=== PATIENT | male | born 1955 | race Caucasian/White ===

== ENCOUNTER → 2016-11-18 | Day surgery (SDC) | payer OTHER ==
[2016-11-11 14:09] VITALS: Ht 170.2 cm; Wt 99.1 kg
[~2016-11-18] VITALS: Ht 170.2 cm; Wt 99.1 kg
[~2016-11-18] MED LIST: CALC500C3 PO; IBUP-1050 PO; LIDOCAINE HCL 2% 2 ML VIAL (20MG/ML) ONE; MIDAZOLAM HCL 1 MG/ML 2ML VIAL ONE; MULT-506 PO; ONDANSETRON INJ 2 MG/ML 2 ML VIAL ONE; PROPOFOL IV EMULSION 10 MG/ML 20 ML VIAL IV ONE; SODIUM CHLORIDE 0.9% 500ML 500 ML IV ONE
--- NOTE | 2016-11-18 12:19 | Endo History and Physical ---
History & Physical Date of Service: Nov 18, 2016. Chief Complaint: screening Referring Physician: Dr. Abdulaziz Alexander History of Present Illness 61 yo CM who presents for screening colonoscopy Past Surgical History Hx Cardiac Surgery: No Hx Internal Defibrillator: No Hx Pacemaker: No Hx Abdominal Surgery: No Hx of Implantable Prosthesis: No Hx Post-Op Nausea and Vomiting: No Hx Cancer Surgery: No Hx Thoracic Surgery: No Hx Orthopedic: Yes (R KNEE SCOPE, L KNEE SCOPE X 2,L SHOULDER SCOPE X 2) Hx Urinary Tract Surgery: No Family History None Social History Smoking Status: Current Every Day Smoker Hx Substance Use: No Hx Alcohol Use: Yes (OCC SOCIAL) Allergies Coded Allergies: Ethanol (Verified Allergy, Unknown, SNEEZING, 11/18/16) Guaifenesin (Verified Allergy, Unknown, SNEEZING, 11/18/16) Current Medications Reported Home Medications Medications Dose Route/Sig Max Daily Dose Days Date Category Tums (Calcium Carbonate) 500 Mg Chew 2 Tab PO PRN 11/11/16 Reported Advil (Ibuprofen) 200 Mg Tab 400 Mg PO PRN 11/11/16 Reported Multivitamin (Multivitamins) Tab 1 Tab PO QAM 11/11/16 Reported Vital Signs Weight (Kilograms): 99.09 Height (Feet): 5 Height (Inches): 7 Date Time Temp Pulse Resp B/P Pulse Ox O2 Delivery O2 Flow Rate FiO2 11/18/16 11:52 36.6 85 20 131/88 97 Room Air Physical Exam General Appearance: WD/WN, no apparent distress Respiratory/Chest: Auscultation: breath sounds normal Cardiovascular: Heart Auscultation: RRR Abdomen: Bowel Sounds: normal Inspection & Palpation: soft, non-distended, no tenderness, guarding & rebound Assessment and Plan Assessment: 61 yo CM who presents for screening colonoscopy Plan: Proceed with colonoscopy.
--- NOTE | 2016-11-18 13:03 | GI REPORT ---
Procedure Date: 11/18/2016 12:30 PM Procedure: Colonoscopy Indications: Screening for colorectal malignant neoplasm Medicines: Monitored Anesthesia Care Complications: No immediate complications. Estimated Blood Loss: Estimated blood loss: none. Procedure: Pre-Anesthesia Assessment: - Prior to the procedure, a History and Physical was performed, and patient medications and allergies were reviewed. The patient's tolerance of previous anesthesia was also reviewed. The risks and benefits of the procedure and the sedation options and risks were discussed with the patient. All questions were answered, and informed consent was obtained. Prior Anticoagulants: The patient has taken no previous anticoagulant or antiplatelet agents. ASA Grade Assessment: II - A patient with mild systemic disease. After reviewing the risks and benefits, the patient was deemed in satisfactory condition to undergo the procedure. After I obtained informed consent, the scope was passed under direct vision. Throughout the procedure, the patient's blood pressure, pulse, and oxygen saturations were monitored continuously. The scope was introduced through the anus and advanced to the terminal ileum. The colonoscopy was performed without difficulty. The patient tolerated the procedure well. The quality of the bowel preparation was good. The terminal ileum, ileocecal valve, appendiceal orifice, and rectum were photographed. Findings: Five sessile polyps were found in the sigmoid colon, in the transverse colon and in the ascending colon. The polyps were 5 to 10 mm in size. These polyps were removed with a hot snare. Resection and retrieval were complete. Scattered small-mouthed diverticula were found in the entire colon. Non-bleeding internal hemorrhoids were found during retroflexion. The hemorrhoids were small. Impression: - Five 5 to 10 mm polyps in the sigmoid colon, in the transverse colon and in the ascending colon, removed with a hot snare. Resected and retrieved. - Diverticulosis in the entire examined colon. - Non-bleeding internal hemorrhoids. Recommendation: - Resume previous diet. - Continue present medications. - Repeat colonoscopy for surveillance based on pathology results. - Return to primary care physician as previously scheduled. Gabriel Morales DO 11/18/2016 1:02:18 PM This report has been signed electronically. Note Initiated On: 11/18/2016 12:30 PM
--- NOTE | 2016-11-18 13:07 | Discharge Instructions ---
Endoscopy Patient Instructions Date / Procedure(s) Performed Nov 18, 2016. Colonoscopy Allergy Information Coded Allergies: Ethanol (Verified Allergy, Unknown, SNEEZING, 11/18/16) Guaifenesin (Verified Allergy, Unknown, SNEEZING, 11/18/16) Discharge Date / Findings Nov 18, 2016. Colon polyps Diverticulosis Internal hemorrhoids Medication Instructions OK to resume all medications today as prescribed. Reported Home Medications Medications Dose Route/Sig Max Daily Dose Days Date Category Tums (Calcium Carbonate) 500 Mg Chew 2 Tab PO PRN 11/11/16 Reported Advil (Ibuprofen) 200 Mg Tab 400 Mg PO PRN 11/11/16 Reported Multivitamin (Multivitamins) Tab 1 Tab PO QAM 11/11/16 Reported Provider Instructions Activity Restrictions - No exercising or heavy lifting for 24 hours. - Do not drink alcohol the day of the procedure. - Do not drive a car or operate machinery until the day after the procedure. - Do not make any important decisions or sign important papers in 24 hours after the procedure. Following Day: - Return to full activity which may include returning to work/school. Diet Start your diet with liquids and light foods (jello, soup, juice, toast). Then eat your usual diet if not nauseated. Treatment For Common After Affects For mild abdominal pain, bloating, or excessive gas: - Rest - Eat lightly - Lie on right side Follow-Up Information Follow-up with Dr. Abdulaziz Alexander as scheduled Anesthesia Information What You Should Know You have had a procedure that required some medicine to reduce anxiety and discomfort. This treatment is called moderate sedation. After receiving the treatment, you may be sleepy, but you will be able to breathe on your own. The effects of the treatment may last for several hours. Follow these instructions along with Activity/Diet recommendations noted above: * Do NOT do anything where dizziness or clumsiness would be dangerous. * Rest quietly at home today, then you can be up and about tomorrow. * Have a responsible person stay with you the rest of today. * You may have had an I.V. today. If so, you may take the dressing off later today. Recommendations Call your doctor if: * Trouble breathing * Continuous vomiting for more than 24 hours * Temperature above 101 degrees * Severe abdominal pain or bloating * Pain not relieved by pain medicine ordered * There is increased drainage or redness from any incision * A large amount of rectal bleeding greater than 2-3 tablespoons. (If you had a polyp/s removed or have hemorrhoids, a small amount of blood - from the rectum is to be expected.) * You have any unanswered questions or concerns. IN THE EVENT OF A SERIOUS EMERGENCY, GO TO THE NEAREST EMERGENCY ROOM Your discharge instructions were prepared by provider Gabriel Morales. Patient Instructions Signature Page Dyllan Keller Patient (or Guardian) Signature/Date: I have read and understand the instructions given to me by my caregivers. Caregiver/RN/Doctor Signature/Date: The above-named patient and/or guardian has received patient instructions on this date. + Original Patient Signature Page (only) stays with chart. Please make copy for patient.
[2016-11-18 13:38] VITALS: BP 148/82; PULSE 77; O2SAT 98
--- NOTE | 2016-11-18 13:45 | Anesthesiology Progress Note ---
Anesthesia Post Op Note Date & Time Nov 18, 2016 at 13:44 Vital Signs Pain Intensity: 0 Vital Signs Past 12 Hours Date Time Temp Pulse Resp B/P Pulse Ox O2 Delivery O2 Flow Rate FiO2 11/18/16 13:38 77 20 148/82 98 Room Air 11/18/16 13:17 81 20 146/80 97 Room Air 11/18/16 13:00 93 20 130/77 95 Room Air 11/18/16 11:52 36.6 85 20 131/88 97 Room Air Notes Mental Status: alert / awake / arousable, participated in evaluation Pt Amnestic to Procedure: Yes Nausea / Vomiting: adequately controlled Pain: adequately controlled Airway Patency, RR, SpO2: stable & adequate BP & HR: stable & adequate Hydration State: stable & adequate Anesthetic Complications: no major complications apparent
== END | disposition home or self-care (01) ==
LOC: C.GI 11:31
PROVIDERS: ATTEND Internal Medicine
DX: Z12.11 Encounter for screening for malignant neoplasm of colon (principal); D12.5 Benign neoplasm of sigmoid colon; D12.3 Benign neoplasm of transverse colon; D12.2 Benign neoplasm of ascending colon; K57.30 Diverticulosis of large intestine without perforation or abscess without bleeding; K64.8 Other hemorrhoids; F17.210 Nicotine dependence, cigarettes, uncomplicated

== ENCOUNTER → 2018-02-22 | Day surgery (SDC) | payer OTHER ==
[2018-02-09 15:33] VITALS: Ht 170.2 cm; Wt 100.0 kg
[~2018-02-22] VITALS: Ht 170.2 cm; Wt 100.0 kg
[~2018-02-22] MED LIST changes: +500ML BSS 0.3ML EPI 1:1000PF IRRIG ONE; +ACETAMINOPHEN 325 MG TAB PO PRN; +AMVISC PLUS 0.8ML SYRINGE INT OCU ONE; +ATROPINE SULFATE 0.1 MG/ML 5ML SYR IV PRN; +BSS FLUSH ONE; +CYCLOPENTOLATE HCL 1% OP SOLN PER DROP CHARGE OPR ONE; +ENDOCOAT 0.85ML SYRINGE INT OCU ONE; +EpHEDrine SULFATE INJ 50 MG/ML AMP IV PRN; +EpINEphrine INJ 1MG/ML AMP 1 MG/ML AMP ONE; +LACTATED RINGER'S 1000ML 500 ML IV SCH; +LIDOCAINE 4% OP SOLN DROP CHARGE ONE; +LIDOCAINE 4% OP SOLN DROP CHARGE OPR SCH; +LIDOCAINE HCL 1% MPF 2 ML VIAL ONE; -LIDOCAINE HCL 2% 2 ML VIAL (20MG/ML) ONE; +MIX: 4ML BSS 1ML EPI 1:1000 PF TOP ONE; +MOXIFLOXACIN OPH SOLN PER DROP CHARGE ONE; +NURSING VERBAL MED ORDER ONE; -ONDANSETRON INJ 2 MG/ML 2 ML VIAL ONE; +PHENYLEPHRINE HCL 10% OP SOLN PER DROP CHARGE OPR ONE; +POVIDONE-IODINE OP SOLN 30 ML BTL ONE; +PROPARACAINE 0.5% OP SOLN PER DROP CHARGE OPR SCH; -PROPOFOL IV EMULSION 10 MG/ML 20 ML VIAL IV ONE; -SODIUM CHLORIDE 0.9% 500ML 500 ML IV ONE; +TOBRAMYCIN/DEXAMETHASONE OPH OINT PER APPLN CHARGE ONE; +TROPICAMIDE 1% OP SOLN PER DROP CHARGE OPR ONE
[2018-02-22] MEDS: PHENYLEPHRINE HCL 10% OP SOLN PER DROP CHARGE OPR SCH ×3 (07:21→07:29)
[2018-02-22] MEDS: TROPICAMIDE 1% OP SOLN PER DROP CHARGE OPR SCH ×3 (07:22→07:30)
[2018-02-22] MEDS: CYCLOPENTOLATE HCL 1% OP SOLN PER DROP CHARGE OPR SCH ×3 (07:23→07:31)
[2018-02-22] MEDS: MOXIFLOXACIN OPH SOLN PER DROP CHARGE OPR SCH ×3 (07:24→07:32)
--- NOTE | 2018-02-22 07:31 | History & Physical Bridge - SC ---
H&P Re-Evaluation Bridge Note: I have examined the patient, reviewed the History & Physical and in the interval since the performance of the History & Physical I have noted the following changes of clinical significance: No changes noted
--- NOTE | 2018-02-22 08:43 | [facility] Post Operative Brief Note ---
Immediate Operative Summary Operative Date Feb 22, 2018. Pre-Operative Diagnosis Cataract Right Eye Post-Operative Diagnosis Same Procedure(s) Performed Right Cataract Phacoemulsification With Intraocular Lens Implant; Toric Lens Surgeon Dr. Pearce Civil Draftsman Surgeon(s) None Estimated Blood Loss 0 mL Findings Consistent with Post-Op Diagnosis Specimens None Anesthesia Type MAC Complication(s) none Disposition Accompanied Pt To Recovery: no Disposition:
--- NOTE | 2018-02-22 08:44 | [facility] Operative Report ---
Operative Report Date of Service Feb 22, 2018. Operative Report DATE OF OPERATION: 02/22/18 PREOPERATIVE DIAGNOSIS: Senile nuclear cataract and astigmatism, right eye POSTOPERATIVE DIAGNOSIS: Senile nuclear cataract and astigmatism, right eye PROCEDURE PERFORMED: Phacoemulsification with toric intraocular lens implantation, right eye SURGEON: Dr. Landon Pearce ANESTHESIA: Topical with 1% intracameral lidocaine and monitored anesthesia care COMPLICATIONS: None DESCRIPTION OF PROCEDURE: After positively identifying the patient both verbally and by wristband in the preoperative area, the right eye was marked as the operative eye. Using a Robomarker, the 177 degree axis was marked after placing a drop of proparacaine. The patient was then brought back to the operating room by the anesthesia and nursing staff where they were given a drop of tetracaine and betadine into the operative eye. They were then sterilely prepped and draped in the standard fashion typical for ophthalmic surgery. Steri-strips were placed along the upper eyelids to keep the lashes back, and a lid speculum was placed into the operative eye. At this point, a documented time out was performed with members of the ophthalmology, nursing, and anesthesia staffs all agreeing upon the correct patient, correct location for surgery, correct procedure, and correct type and power of intraocular lens to be implanted. The microscope was then swung into position. Then, a paracentesis wound was made using a sideport blade. Then, in sequence, 1% preservative-free lidocaine followed by Endocoat viscoelastic was injected into the anterior chamber. Next , the main incision was made with a keratome blade in triplanar fashion. A sharp cystotome was introduced into the eye and used to create a tear in the anterior capsule, which was directed into a continuous curvilinear capsulorrhexis using Utrata forceps. Hydrodissection was then performed with BSS on a flat-tip cannula. Next, the phacoemulsification handpiece was introduced into the eye and used to remove the nucleus in a yccuos-ibl-igotfft fashion. This was done without complication and then the irrigation-aspiration handpiece was introduced into the eye and used to remove all remaining cortical and epinuclear material. Amvisc was then injected into the anterior chamber as well as into the capsular bag and using the lens injector system, a [id number] 21.0 D lens, serial number [id number], and expiration date 06/2021 was injected into the capsular bag and rotated into the correct position to correctly line up with the toric marking. Next, the irrigation-aspiration handpiece was used to remove all remaining Amvisc. BSS was used to hydrate the main wound, and then BSS was injected into the paracentesis site to reach physiologic pressure and then the main wound was checked and found to be watertight. The patient was given drops of Vigamox and tobradex ointment into the operative eye, and then the surrounding area was cleaned and dried. A clear plastic shield was placed over the eye and the patient was then sat up and taken from the operating room by the anesthesia staff having tolerated the procedure well and suffering no complications. DISPOSITION: The patient was returned to the recovery room in stable condition. I attest to the content of the Intraoperative Record and any orders documented therein. Any exceptions are noted below.
--- NOTE | 2018-02-22 08:45 | Discharge Instructions-SurgCtr ---
Discharge Instructions Date of Service Feb 22, 2018. Visit Reason for Visit: Right Cataract Discharge Discharge Diagnosis / Problem: right cataract Discharge Goals Goal(s): Decrease discomfort, Improve function Activity Recommendations Activity Limitations: as noted below Anesthesia . Post Anesthesia Instructions: If you have had General Anesthesia or IV Sedation: * Do not drive today. * Resume driving when surgeon permits. * Do not make important decisions or sign legal documents today. * Call surgeon for: 1. Temperature elevations greater than 101 degrees F. 2. Uncontrollable pain. 3. Excessive bleeding. 4. Persistent nausea and vomiting. 5. Medication intolerance (nausea, vomiting or rash). * For nausea and vomiting use only clear liquids such as: tea, soda, bouillon until nausea subsides, then gradually increase diet as tolerated. * If you have any concerns or questions, call your surgeon's office. If physician is unavailable and it is an emergency, call 911 or go to the nearest emergency room. . Instructions / Follow-Up Instructions / Follow-Up ACTIVITY RECOMMENDATIONS: * Light activities. * You may walk outside, read, watch television. * You may notice redness on the white part of the eye and some blurry vision - this is normal. MEDICATIONS: Resume previous medications unless instructed otherwise by your surgeon. Start all eye drops at 11 am today: * Eye drops (today): Prednisone - one drop in operative eye every 2 hours while awake Ofloxacin - one drop in operative eye every 2 hours while awake Prolensa - one drop in operative eye daily SPECIAL CARE INSTRUCTIONS: * Tape plastic shield over eye to sleep at night. Call your doctor at with any concerns or problems. FOLLOW UP VISIT: Follow-up with Dr Pearce at [facility] as scheduled. Diet Recommendations Home Diet: no limitations Procedures Procedures Performed: Right Cataract Phacoemulsification With Intraocular Lens Implant; Toric Lens Pending Studies Studies pending at discharge: no Medical Emergencies . Who to Call and When: Medical Emergencies: If at any time you feel your situation is an emergency, please call 911 immediately. . Non-Emergent Contact Non-Emergency issues call your: Surgeon . . "Provider Documentation" section prepared by Landon Pearce. .
[2018-02-22 08:46] VITALS: TEMP 36.7
[2018-02-22 09:04] VITALS: BP 153/95; PULSE 75; O2SAT 95
--- NOTE | 2018-02-22 09:14 | Anesthesia Progress Nt - [facility] ---
Anesthesia Post Op Note Date & Time Feb 22, 2018 at 09:14 Vital Signs Pain Intensity: 0 Vital Signs Past 12 Hours Date Time Temp Pulse Resp B/P (MAP) Pulse Ox O2 Delivery O2 Flow Rate FiO2 02/22/18 09:04 75 20 153/95 (114) 95 Room Air 02/22/18 08:46 36.7 78 16 151/94 (113) 95 Room Air 02/22/18 07:09 36.6 80 20 185/83 (117) 96 Room Air Notes Mental Status: alert / awake / arousable, participated in evaluation Pt Amnestic to Procedure: Yes Nausea / Vomiting: adequately controlled Pain: adequately controlled Airway Patency, RR, SpO2: stable & adequate BP & HR: stable & adequate Hydration State: stable & adequate Anesthetic Complications: no major complications apparent
== END | disposition home or self-care (01) ==
LOC: X.SURG 07:00
PROVIDERS: ATTEND Ophthalmology
DX: H25.11 Age-related nuclear cataract, right eye (principal); H52.201 Unspecified astigmatism, right eye; J44.9 Chronic obstructive pulmonary disease, unspecified; I10 Essential (primary) hypertension; K21.9 Gastro-esophageal reflux disease without esophagitis; E66.9 Obesity, unspecified; F17.210 Nicotine dependence, cigarettes, uncomplicated; Z83.3 Family history of diabetes mellitus; Z83.511 Family history of glaucoma

== ENCOUNTER → 2018-03-08 | Day surgery (SDC) | payer OTHER ==
[2018-02-27 14:39] VITALS: Ht 170.2 cm; Wt 100.0 kg
[~2018-03-08] VITALS: Ht 170.2 cm; Wt 100.0 kg
[~2018-03-08] MED LIST changes: +AcetaZOLAMIDE 500 MG CAPCR ONE; -CYCLOPENTOLATE HCL 1% OP SOLN PER DROP CHARGE OPR ONE; +LIDOCAINE 4% OP SOLN DROP CHARGE OPL SCH; -LIDOCAINE 4% OP SOLN DROP CHARGE OPR SCH; -PHENYLEPHRINE HCL 10% OP SOLN PER DROP CHARGE OPR ONE; +PROPARACAINE 0.5% OP SOLN PER DROP CHARGE OPL SCH; -PROPARACAINE 0.5% OP SOLN PER DROP CHARGE OPR SCH; -TROPICAMIDE 1% OP SOLN PER DROP CHARGE OPR ONE
[2018-03-08] MEDS: PHENYLEPHRINE HCL 2.5% OP SOLN PER DROP CHARGE OPL SCH ×3 (06:31→06:40)
[2018-03-08] MEDS: TROPICAMIDE 1% OP SOLN PER DROP CHARGE OPL SCH ×3 (06:32→06:41)
[2018-03-08] MEDS: CYCLOPENTOLATE HCL 1% OP SOLN PER DROP CHARGE OPL SCH ×3 (06:33→06:43)
[2018-03-08] MEDS: MOXIFLOXACIN OPH SOLN PER DROP CHARGE OPL SCH ×3 (06:34→06:44)
--- NOTE | 2018-03-08 07:25 | [facility] Post Operative Brief Note ---
Immediate Operative Summary Operative Date March 08, 2018. Pre-Operative Diagnosis Left Eye Cataract Post-Operative Diagnosis Same Procedure(s) Performed Left Eye Cataract Phacoemulsification With Intraocular Lens Implant Surgeon Dr. Pearce Machine Clipper Surgeon(s) None Estimated Blood Loss None Findings Consistent with Post-Op Diagnosis Specimens None Anesthesia Type MAC Complication(s) none Disposition Accompanied Pt To Recovery: no Disposition:
--- NOTE | 2018-03-08 07:26 | [facility] Operative Report ---
Operative Report Date of Service March 08, 2018. Operative Report DATE OF OPERATION: 03/08/18 PREOPERATIVE DIAGNOSIS: Senile nuclear cataract, left eye POSTOPERATIVE DIAGNOSIS: Senile nuclear cataract, left eye PROCEDURE PERFORMED: Phacoemulsification with intraocular lens implantation, left eye SURGEON: Dr. Landon Pearce ANESTHESIA: Topical with 1% intracameral lidocaine and monitored anesthesia care COMPLICATIONS: None DESCRIPTION OF PROCEDURE: After positively identifying the patient both verbally and by wristband in the preoperative area, the left eye was marked as the operative eye. The patient was then brought back to the operating room by the anesthesia and nursing staff where they were given a drop of Lidocaine and betadine into the operative eye. They were then sterilely prepped and draped in the standard fashion typical for ophthalmic surgery. Steri-strips were placed along the upper eyelids to keep the lashes back, and a lid speculum was placed into the operative eye. At this point, a documented time out was performed with members of the ophthalmology, nursing, and anesthesia staffs all agreeing upon the correct patient, correct location for surgery, correct procedure, and correct type and power of intraocular lens to be implanted. The microscope was then swung into position. First, a paracentesis wound was made using a sideport blade. Then, in sequence, 1% preservative-free lidocaine followed by Endocoat viscoelastic was injected into the anterior chamber. Next , the main incision was made with a keratome blade in triplanar fashion. A sharp cystotome was introduced into the eye and used to create a tear in the anterior capsule, which was directed into a continuous curvilinear capsulorrhexis using Utrata forceps. Hydrodissection was then performed with BSS on a flat-tip cannula. Next, the phacoemulsification handpiece was introduced into the eye and used to remove the nucleus in a pygiqi-psz-alkmtkh fashion. This was done without complication and then the irrigation-aspiration handpiece was introduced into the eye and used to remove all remaining cortical and epinuclear material. Amvisc was then injected into the anterior chamber as well as into the capsular bag and using the lens injector system, an [id number] 20.5 D lens, serial number [id number], and expiration date 11/2020 was injected into the capsular bag and rotated into the correct position. Next, the irrigation- aspiration handpiece was used to remove all remaining Amvisc. BSS was used to hydrate the main wound, and then BSS was injected into the paracentesis site to reach physiologic pressure and then the main wound was checked and found to be watertight. The patient was given drops of Vigamox and Tobradex ointment into the operative eye, and then the surrounding area was cleaned and dried. A clear plastic shield was placed over the eye and the patient was then sat up and taken from the operating room by the anesthesia staff having tolerated the procedure well and suffering no complications. DISPOSITION: The patient was returned to the recovery room in stable condition. I attest to the content of the Intraoperative Record and any orders documented therein. Any exceptions are noted below.
--- NOTE | 2018-03-08 07:27 | Discharge Instructions-SurgCtr ---
Discharge Instructions Date of Service March 08, 2018. Visit Reason for Visit: Cataract Left Eye Discharge Discharge Diagnosis / Problem: left cataract Discharge Goals Goal(s): Decrease discomfort, Improve function Activity Recommendations Activity Limitations: as noted below Anesthesia . Post Anesthesia Instructions: If you have had General Anesthesia or IV Sedation: * Do not drive today. * Resume driving when surgeon permits. * Do not make important decisions or sign legal documents today. * Call surgeon for: 1. Temperature elevations greater than 101 degrees F. 2. Uncontrollable pain. 3. Excessive bleeding. 4. Persistent nausea and vomiting. 5. Medication intolerance (nausea, vomiting or rash). * For nausea and vomiting use only clear liquids such as: tea, soda, bouillon until nausea subsides, then gradually increase diet as tolerated. * If you have any concerns or questions, call your surgeon's office. If physician is unavailable and it is an emergency, call 911 or go to the nearest emergency room. . Instructions / Follow-Up Instructions / Follow-Up ACTIVITY RECOMMENDATIONS: * Light activities. * You may walk outside, read, watch television. * You may notice redness on the white part of the eye and some blurry vision - this is normal. MEDICATIONS: Resume previous medications unless instructed otherwise by your surgeon. Start all eye drops at 9:30 am today: * Eye drops (today): Prednisone - one drop in operative eye every 2 hours while awake Ofloxacin - one drop in operative eye every 2 hours while awake Ketorolac - one drop in operative eye 4 times daily SPECIAL CARE INSTRUCTIONS: * Tape plastic shield over eye to sleep at night. Call your doctor at with any concerns or problems. FOLLOW UP VISIT: Follow-up with Dr Pearce at [facility] as scheduled. Diet Recommendations Home Diet: no limitations Procedures Procedures Performed: Left Eye Cataract Phacoemulsification With Intraocular Lens Implant Pending Studies Studies pending at discharge: no Medical Emergencies . Who to Call and When: Medical Emergencies: If at any time you feel your situation is an emergency, please call 911 immediately. . Non-Emergent Contact Non-Emergency issues call your: Surgeon . . "Provider Documentation" section prepared by Landon Pearce. .
[2018-03-08 07:30] VITALS: TEMP 36.3
--- NOTE | 2018-03-08 08:10 | Anesthesia Progress Nt - [facility] ---
Anesthesia Post Op Note Date & Time March 08, 2018 at 08:09 Vital Signs Pain Intensity: 5.0 Vital Signs Past 12 Hours Date Time Temp Pulse Resp B/P (MAP) Pulse Ox O2 Delivery O2 Flow Rate FiO2 03/08/18 07:30 36.3 84 14 151/92 (111) 95 Room Air 03/08/18 06:25 36.4 78 18 168/94 (118) 95 Room Air Notes Mental Status: alert / awake / arousable, participated in evaluation Pt Amnestic to Procedure: Yes Nausea / Vomiting: adequately controlled Pain: adequately controlled Airway Patency, RR, SpO2: stable & adequate BP & HR: stable & adequate Hydration State: stable & adequate Anesthetic Complications: no major complications apparent
[2018-03-08 08:45] VITALS: BP 172/85; PULSE 68; O2SAT 94
== END | disposition home or self-care (01) ==
LOC: X.SURG 06:12
PROVIDERS: ATTEND Ophthalmology
DX: H25.12 Age-related nuclear cataract, left eye (principal); I10 Essential (primary) hypertension; G47.33 Obstructive sleep apnea (adult) (pediatric); Z98.41 Cataract extraction status, right eye; F17.200 Nicotine dependence, unspecified, uncomplicated; E66.9 Obesity, unspecified; Z68.34 Body mass index [BMI] 34.0-34.9, adult

== ENCOUNTER 2020-03-17 17:20 | Inpatient (IN) ==
[2020-03-17] MEDS ORDERED: SODIUM CHLORIDE 0.9% 500 ML IV SCH (18:15)
--- NOTE | 2020-03-17 18:21 | Emergency Department Note ---
Impression & Plan Pleuritic chest pain, Pneumonia, Lung mass, Leukocytosis ED Provider Note NAME: DALLAS SKY AGE: 65 SEX: M : 1955 ARRIVES VIA: Walk-In INFORMANT: [Patient][bhumika jain] ED PROVIDER(S): [Cezar Goncalves MD] CHIEF COMPLAINT: Cough and right-sided chest pain HISTORY OF PRESENT ILLNESS: The patient is a 65-year-old male who presents to the ED with right-sided chest pain and cough since last night. The patient states that last evening, just shy of 24 hours ago, he coughed and suddenly had pain along the right chest and began to feel short of breath. He has had pleuritic chest pain ever since. The pain is severe and sharp and does not radiate. The pain is an 8/10. He does feel slightly short of breath with the discomfort. Patient states that his pain is better when he lays on his right side, his pain is worse with deep breathing. There has been no fever. He does have a somewhat productive cough. Patient has had no known coronavirus exposures. He has not suffered recent trauma. The patient did quit smoking tobacco about 1 week ago. He had smoked tobacco for 40 years prior. The patient spoke to his doctor's office, he was referred to the ED for further work-up. Patient was on antibiotics a few months ago for some type of pulmonary infection. He states that he got better with the antibiotics. He thought he might of had pneumonia. REVIEW OF SYSTEMS: See HPI for pertinent positives and negatives. A total of ten systems were reviewed and were otherwise negative. PMHx/PSHx: See Below SOCIAL HISTORY: See Below. PHYSICAL EXAM: GENERAL: Patient is in no acute distress. Feels better lying on his right side. HEENT: No acute trauma, normocephalic atraumatic, mucous membranes moist, no nasal congestion, no scleral icterus. NECK: No stridor, no adenopathy, no meningismus, trachea is midline. LUNGS: Scattered wheezing, no respiratory distress, equal breath sounds, no crackles. HEART: Without murmurs gallops or rubs, regular rate and rhythm. Chest: Nontender chest wall, no rash. ABDOMEN: Soft, nontender, bowel sounds positive, no hernias, no peritonitis. EXTREMITIES: No cyanosis or edema, full range of motion of all the joints without pain or difficulty, no signs for acute trauma. NEUROLOGIC: Oriented x 3, no acute motor or sensory deficits, no focal weakness. SKIN: No rash, no jaundice, no diaphoresis. DIFFERENTIAL DIAGNOSIS: Reactive airway disease, pneumonia, pneumothorax, COPD, coronavirus infection, CHF, infections, cardiac ischemia, pulmonary embolism, musculoskeletal, gastrointestinal, as well as other pathologies. EMERGENCY DEPARTMENT COURSE/PROCEDURES: ECG: Indication is chest pain. The EKG shows a sinus tachycardia with a rate of 104. There is a right bundle branch block. There is a potential old anterior infarct noted. There is no ST elevation. No PVCs. The QTc is 452. Compared to an EKG from 18 July 2013, the potential anterior septal infarct is now present. Continuous Cardiac Monitoring: An order was placed for continuous cardiac monitoring. The monitor shows a rate of 102 with sinus tachycardia. MEDICAL DECISION MAKING: There is a mild leukocytosis, this of course could be consistent with infection. No concerning anemia. No coagulopathy. No significant electrolyte abnormality or kidney failure. Lactic acid level was not elevated making sepsis less likely. There was no liver enzyme elevation. No evidence for pancreatitis. EKG showed a sinus tachycardia, no acute ischemia. Cardiac enzyme testing x1 is not consistent with acute cardiac injury. Chest CT does not show PE, there was a right sided pneumonia with a right lung mass seen. A small right pleural effusion was seen. The patient presents with right pleuritic chest pain and some shortness of breath. He appears to have a pneumonia as well as a lung malignancy. Of note, he is a long-time previous smoker. The patient received IV morphine for pain, he received IV saline. He was given IV cefepime as antibiotic coverage. The patient deserves a hospital stay. He has pneumonia. He has a new lung mass. He is in need of IV antibiotic therapy and a pulmonary consult. Oncology will likely need to be involved. The patient is aware of his findings, I spoke to the telehealth case manager, the on-call hospitalist has been consulted. Past Med/Surg History Medical History No significant past medical history Surgical History S/P eye surgery S/P knee surgery S/P shoulder surgery Family History Mother Breast cancer Diabetes Heart disease Sister Breast cancer Father Myocardial infarction Heart disease Hypertension Brother Heart disease Hypertension Denies family history of Ovarian cancer Prostate cancer Colorectal cancer Social History Preferred Language: [place] Visual Impairment: No Limitations Hearing Ability: Normal marital status: Current Living Situation: Spouse current occupational status: retired Feels Safe at Home: Yes Smoking Status: Former smoker Tobacco Type: cigarettes ; Age Started Using Tobacco: 17 ; packs per day: 1 ; Second Hand Exposure: Yes ; Hx Alcohol Use: Yes Alcohol Intake Frequency: Rarely Hx Substance Use: No Dental Care, Regularly: No Allergies Allergies Allergy/AdvReac Type Severity Reaction Status Date / Time guaifenesin Allergy Unknown SNEEZING Verified 03/17/20 20:18 Ethanol Allergy Unknown SNEEZING Uncoded 03/17/20 20:18 Home Meds Home Medications Medication Instructions Recorded Confirmed albuterol sulfate [Proventil HFA] 2 puffs INH Q6H PRN 03/17/20 03/17/20 aspirin 650 mg PO Q6H PRN 03/17/20 03/17/20 multivitamin, stress formula 1 tab PO DAILY 03/17/20 03/17/20 [Stress Formula] Previous Rx's Medication Instructions Recorded bupropion HCl 150 mg tablet,12 hr 150 mg PO BID #60 ea 01/18/20 sustained-release Results & Data (ED) Vital Signs Vital Signs - 24 hr 03/17/20 17:28 03/17/20 18:38 03/17/20 19:26 Temperature 37 C Temperature Source Oral Pulse Rate 103 H 105 H Pulse Rate from SpO2 Sensor 105 H Pulse Rhythm Regular Pulse Strength Normal Respiratory Rate 22 20 Respiratory Effort / Characteristics Non-Labored Spontaneous Respiratory Depth Normal Respiratory Pattern Regular Blood Pressure 159/122 H 179/106 H Blood Pressure Mean 134 119 Pulse Oximetry 95 95 95 Oxygen Delivery Method Room Air Room Air Room Air Sepsis Recent Fever Within 48 Hours No Sepsis Action Taken by Nursing No Action Required 03/17/20 19:30 03/17/20 19:31 Temperature Temperature Source Pulse Rate 103 H 102 H Pulse Rate from SpO2 Sensor 102 H 102 H Pulse Rhythm Pulse Strength Respiratory Rate 30 H 30 H Respiratory Effort / Characteristics Respiratory Depth Respiratory Pattern Blood Pressure 168/99 H Blood Pressure Mean 117 Pulse Oximetry 95 95 Oxygen Delivery Method Sepsis Recent Fever Within 48 Hours Sepsis Action Taken by Detention Medications Current Medication List: was personally reviewed by me Laboratory Data Attestation: I reviewed the patient's lab results. Result diagrams: 03/17/20 17:55 03/17/20 17:55 Lab Results 03/17/20 03/17/20 03/17/20 Range/Units 17:55 17:55 17:55 WBC 10.96 H (4.8-10.8) K/uL RBC 4.78 (4.7-6.1) M/uL Hgb 15.5 (14.0-18.0) g/dL Hct 44.6 (42-52) % MCV 93.3 (80-100) fL MCH 32.4 (25-34) pg MCHC 34.8 (32-36) g/dL RDW Std Deviation 47.5 H (36.4-46.3) fL RDW Coeff of Jean 13.9 (11.5-14.5) % Plt Count 234 (130-400) K/uL MPV 8.9 (7.4-10.4) fL Immature Gran % (Auto) 0.3 % Neut % (Auto) 68.1 % Lymph % (Auto) 16.2 % [place] % (Auto) 14.3 % Eos % (Auto) 0.8 % Baso % (Auto) 0.3 % Immature Gran # (Auto) 0.03 H (0.00-0.02) K/uL Neut # (Auto) 7.46 H (1.4-6.5) K/uL Lymph # (Auto) 1.78 (1.2-3.4) K/uL [place] # (Auto) 1.57 H (0.11-0.59) K/uL Eos # (Auto) 0.09 (0-0.5) K/uL Baso # (Auto) 0.03 (0-0.2) K/uL PT 10.7 (9.0-12.0) Seconds INR 1.0 (0.9-1.1) APTT 30.3 (21.0-31.0) Seconds PTT Ratio 1.1 Sodium 140 (136-145) mmol/L Potassium 3.9 (3.5-5.1) mmol/L Chloride 107 (98-107) mmol/L Carbon Dioxide 25 (21-32) mmol/L Anion Gap 8.0 (3-11) BUN 15 (7-18) mg/dl Creatinine 1.31 (0.6-1.4) mg/dl Est Cr Clr Drug Dosing 62.6 ml/min Est GFR ( Amer) 64.8 Est GFR (Non-Af Amer) 55.9 BUN/Creatinine Ratio 11.2 (10-20) Glucose 106 H (70-99) mg/dl Lactate (0.4-2.0) mmol/L Calcium 8.7 (8.5-10.1) mg/dl Total Bilirubin 0.9 (0.2-1) mg/dl AST 27 (15-37) U/L ALT 30 (12-78) U/L Alkaline Phosphatase 86 (45-117) U/L Troponin I 0.022 (0-0.045) ng/ml Total Protein 7.5 (6.4-8.2) gm/dl Albumin 3.6 (3.4-5.0) gm/dl Globulin 3.9 (2.5-4.0) gm/dl Albumin/Globulin Ratio 0.9 (0.9-2) Lipase 180 (73-393) U/L 03/17/20 Range/Units 18:40 WBC (4.8-10.8) K/uL RBC (4.7-6.1) M/uL Hgb (14.0-18.0) g/dL Hct (42-52) % MCV (80-100) fL MCH (25-34) pg MCHC (32-36) g/dL RDW Std Deviation (36.4-46.3) fL RDW Coeff of Jean (11.5-14.5) % Plt Count (130-400) K/uL MPV (7.4-10.4) fL Immature Gran % (Auto) % Neut % (Auto) % Lymph % (Auto) % [place] % (Auto) % Eos % (Auto) % Baso % (Auto) % Immature Gran # (Auto) (0.00-0.02) K/uL Neut # (Auto) (1.4-6.5) K/uL Lymph # (Auto) (1.2-3.4) K/uL [place] # (Auto) (0.11-0.59) K/uL Eos # (Auto) (0-0.5) K/uL Baso # (Auto) (0-0.2) K/uL PT (9.0-12.0) Seconds INR (0.9-1.1) APTT (21.0-31.0) Seconds PTT Ratio Sodium (136-145) mmol/L Potassium (3.5-5.1) mmol/L Chloride (98-107) mmol/L Carbon Dioxide (21-32) mmol/L Anion Gap (3-11) BUN (7-18) mg/dl Creatinine (0.6-1.4) mg/dl Est Cr Clr Drug Dosing ml/min Est GFR ( Amer) Est GFR (Non-Af Amer) BUN/Creatinine Ratio (10-20) Glucose (70-99) mg/dl Lactate 1.4 (0.4-2.0) mmol/L Calcium (8.5-10.1) mg/dl Total Bilirubin (0.2-1) mg/dl AST (15-37) U/L ALT (12-78) U/L Alkaline Phosphatase (45-117) U/L Troponin I (0-0.045) ng/ml Total Protein (6.4-8.2) gm/dl Albumin (3.4-5.0) gm/dl Globulin (2.5-4.0) gm/dl Albumin/Globulin Ratio (0.9-2) Lipase (73-393) U/L Administered Medications Ioversol (Optiray 320 125ml) 116 ml IV ONCE PRN PRN Reason: Interaction Checking Stop: 03/21/20 19:05 Last Admin: 03/17/20 19:06 Dose: 116 ml Documented by: [id number] Discontinued Medications Sodium Chloride (Nss) 500 mls @ 999 mls/hr IV .Q31M [email or web address] Stop: 03/17/20 18:45 Last Infusion: 03/17/20 19:19 Dose: 0 mls/hr Documented by: [id number] Admin: 03/17/20 18:36 Dose: 999 mls/hr Documented by: [id number] Cefepime HCl (Maxipime) 2,000 mg in 20 mls @ 5 mls/min IV NOW STA; Protocol Stop: 03/17/20 19:39 Last Admin: 03/17/20 19:46 Dose: 5 mls/min Documented by: [id number] Morphine Sulfate (Morphine Sulfate) 4 mg IV NOW STA Stop: 03/17/20 20:02 Last Admin: 03/17/20 20:18 Dose: 4 mg Documented by: [id number] Imaging Data Radiologist's Impression: CT ANGIOGRAM OF THE CHEST CLINICAL HISTORY: Shortness of breath. Suspected acute pulmonary embolism. COMPARISON STUDY: No previous studies for comparison. TECHNIQUE: Following the IV administration of 119 mL of Optiray-320, CT angiogram of the thorax was performed from the thoracic inlet to the lung bases utilizing the pulmonary embolus protocol. Images are reviewed in the axial, sagittal, and coronal planes. IV contrast was administered without complication. MIP imaging was performed. A dose lowering technique was utilized adhering to the principles of ALARA. CT DOSE: 798.35 mGy.cm FINDINGS: There is an 11 cm right hilar and mediastinal mass which extends to the subcarinal region. There is encasement of the right lower lobe pulmonary artery. There is narrowing of the bronchus intermedius, and right middle lobe and lower lobe pulmonary artery branches. In addition there are enlarged prevascular and right paratracheal lymph nodes. There was no evidence of thoracic aortic dilatation. There are no pulmonary artery filling defects to indicate acute pulmonary embolism. There is a small right pleural effusion. There are right lower lobe and right upper lobe airspace opacities, likely representing a postobstructive pneumonia. There is right middle lobe volume loss secondary to bronchial narrowing. The left lung appears clear. There is bilateral adrenal gland thickening IMPRESSION: 1. 11 cm right hilar and mediastinal mass with secondary right pulmonary artery encasement and narrowing, as well as encasement and narrowing of the bronchus intermedius, right middle lobe bronchus, right lower lobe bronchi. This mass should be presumed malignant unless proven otherwise. 2. Right lung airspace opacities, likely secondary to a postobstructive pneumonia 3. Small right pleural effusion 4. No evidence of acute pulmonary embolism 5. Bilateral low density adrenal gland thickening Blood Pressure Blood Pressure Findings: Elevated blood pressure Blood Pressure Disposition: further management by hospitalist Discharge Plan Visit Data Chief Complaint: Cough Stated Complaint: COUGH, SOB ED Provider: Cezar Goncalves Discharge Problem: Pleuritic chest pain, Pneumonia, Lung mass, Leukocytosis Patient Disposition: Being Evaluated by Hospitalist Condition: Fair Forms Stand Alone Forms: My [employer] Prescriptions Prescriptions: No Action bupropion HCl [Wellbutrin SR] 150 mg tablet sustained-release 12 hr 150 mg PO BID Qty: 60 RF: 5 Stress Formula Tablet 1 tab PO DAILY RF: 0 albuterol sulfate [Proventil HFA] 90 mcg/actuation HFA aerosol inhaler 2 puffs INH Q6H PRN (Reason: Shortness Of Breath Or Wheezing) RF: 0 aspirin 325 mg Tablet 650 mg PO Q6H PRN (Reason: Pain) RF: 0 Referrals Referrals: Abdulaziz Alexander III, MD [Primary Care Provider] - Discharge Problem: Pneumonia Qualifiers: Pneumonia type: due to unspecified organism Laterality: right Lung location: unspecified part of lung Qualified Code(s): J18.9 - Pneumonia, unspecified organism Leukocytosis Qualifiers: Leukocytosis type: unspecified Qualified Code(s): D72.829 - Elevated white blood cell count, unspecified
[2020-03-17 18:28] LABS: Basophils # (auto) 0.03 K/uL (0-0.2); Basophils % (auto) 0.3 %; Eosinophils # (auto) 0.09 K/uL (0-0.5); Eosinophils % (auto) 0.8 %; Hematocrit (blood only) 44.6 % (42-52); Hemoglobin 15.5 g/dL (14.0-18.0); Immature Granulocytes # (auto) 0.03 K/uL (0.00-0.02); Immature Granulocytes % (auto) 0.3 %; Lymphocytes # (auto) 1.78 K/uL (1.2-3.4); Lymphocytes % (auto) 16.2 %; Mean Corpuscular Hemoglobin 32.4 pg (25-34); Mean Corpuscular Hgb Conc 34.8 g/dL (32-36); Mean Corpuscular Volume 93.3 fL (80-100); Mean Platelet Volume 8.9 fL (7.4-10.4); Monocytes # (auto) 1.57 K/uL (0.11-0.59); Monocytes % (auto) 14.3 %; Neutrophils # (auto) 7.46 K/uL (1.4-6.5); Neutrophils % (auto) 68.1 %; Platelet Count 234 K/uL (130-400); RDW Coefficient of Variation 13.9 % (11.5-14.5); RDW Standard Deviation 47.5 fL (36.4-46.3); Red Blood Count 4.78 M/uL (4.7-6.1); White Blood Count 10.96 K/uL (4.8-10.8)
[2020-03-17 18:36] LABS: Albumin Level 3.6 gm/dl (3.4-5.0); BUN Creatinine Ratio 11.2 (10-20); Calcium 8.7 mg/dl (8.5-10.1); Creatinine Clr Calc Pharmacy 62.6 ml/min; Est GFR (African American) 64.8; Est GFR (Non-African American) 55.9; Potassium 3.9 mmol/L (3.5-5.1)
[2020-03-17 18:37] LABS: Partial Thromboplastin Ratio 1.1; Partial Thromboplastin Time 30.3 Seconds (21.0-31.0); Prothrombin Time 10.7 Seconds (9.0-12.0)
[2020-03-17 18:40] LABS: Albumin Globulin Ratio 0.9 (0.9-2); Bilirubin,Total 0.9 mg/dl (0.2-1); Globulin 3.9 gm/dl (2.5-4.0); Total Protein 7.5 gm/dl (6.4-8.2); Troponin I 0.022 ng/ml (0-0.045)
[2020-03-17] MEDS ORDERED: OPTIRAY 320 125ml IV PRN (19:06)
--- NOTE | 2020-03-17 19:26 | CT Scan Report ---
CT ANGIOGRAM OF THE CHEST CLINICAL HISTORY: Shortness of breath. Suspected acute pulmonary embolism. COMPARISON STUDY: No previous studies for comparison. TECHNIQUE: Following the IV administration of 119 mL of Optiray-320, CT angiogram of the thorax was p erformed from the thoracic inlet to the lung bases utilizing the pulmonary embolus protocol. Images a re reviewed in the axial, sagittal, and coronal planes. IV contrast was administered without complica tion. MIP imaging was performed. A dose lowering technique was utilized adhering to the principles o f ALARA. CT DOSE: 798.35 mGy.cm FINDINGS: There is an 11 cm right hilar and mediastinal mass which extends to the subcarinal region. There is e ncasement of the right lower lobe pulmonary artery. There is narrowing of the bronchus intermedius, a nd right middle lobe and lower lobe pulmonary artery branches. In addition there are enlarged prevasc ular and right paratracheal lymph nodes. There was no evidence of thoracic aortic dilatation. There are no pulmonary artery filling defects to indicate acute pulmonary embolism. There is a small right pleural effusion. There are right lower lobe and right upper lobe airspace opacities, likely representing a postobstruc tive pneumonia. There is right middle lobe volume loss secondary to bronchial narrowing. The left nain g appears clear. There is bilateral adrenal gland thickening IMPRESSION: 1. 11 cm right hilar and mediastinal mass with secondary right pulmonary artery encasement and narrow ing, as well as encasement and narrowing of the bronchus intermedius, right middle lobe bronchus, rig ht lower lobe bronchi. This mass should be presumed malignant unless proven otherwise. 2. Right lung airspace opacities, likely secondary to a postobstructive pneumonia 3. Small right pleural effusion 4. No evidence of acute pulmonary embolism 5. Bilateral low density adrenal gland thickening ACT 112: Negative or not required by law. Electronically signed by: Jim Baxter M.D. 03/17/2020 7:25 PM
[2020-03-17] MEDS ORDERED: CEFEPIME 2,000 MG/20 ML VIAL IV STA (19:36)
[2020-03-17] MEDS ORDERED: MoRPHine SULFATE 4 MG/ML 1 ML CARP\\VIAL IV STA (20:01)
--- NOTE | 2020-03-17 21:27 | History & Physical Report ---
Date of Service March 17, 2020 Assessment & Plan (1) Lung mass: 65 yo M with PMH HTN, hypercholesterolemia, 50+ pack year smoking history presenting to the ED with new hemoptysis, found to have RLL PNA and new right lung mass on CTA. 1) New Lung Mass - Per radiology read of CTA: 11 cm right hilar and mediastinal mass with secondary right pulmonary artery encasement and narrowing, as well as encasement and narrowing of the bronchus intermedius, right middle lobe bronchus, right lower lobe bronchi. This mass should be presumed malignant unless proven otherwise. - heme/onc consulted for evaluation - morphine 4 mg IV Q12 for pain control. Avoid NSAIDs in setting of hemoptysis. - can consider CT Abd in setting of decreased appetite/abdominal distention 2) CAP - WBC 10.96 with neutrophilic predominance and left shift - elevated monocyte count at 1.57 - no exposure to hospital, low risk for HCAP - treated in november with Azithromycin, doxy and steroids outpt for PNA vs COPD exacerbation - Cefepime 1g Q12 for pseudomonal coverage, Azithromycin for atypicals - blood cultures drawn in ED pending 3) COPD - diffuse wheezing on exam, possible exacerbation brought on by pneumonia - duonebs Q6 - O2 support as needed with sat titration 88-92% - consider outpatient pulm follow up as patient hasn't had formal PFTs for COPD diagnosis 4) Depression - continue home Buproprion 150mgSR DVT ppx: holding chemical prophylaxis in setting of hemoptysis, SCDs FEN/GI: regular diet as tolerated Dispo: Med/Surg (2) Depression: (3) Smoking: (4) Pleuritic chest pain: (5) Pneumonia: History of Present Illness Patient is a 65-year-old man seen in the emergency department with new onset cough with bloody sputum that started yesterday at 10 PM. He describes the hemoptysis as sputum with streaks of bright red blood. He denies any coffee- ground emesis or previous episodes like this. He has a 50+ pack year smoking history; he says he started smoking at the age of 17, 2 packs a day and has been smoking since. Of note he quit smoking 4 days ago. He is also been complaining of right-sided pleuritic chest pain and difficulty taking deep breaths. He describes this pain as mostly dull but occasionally sharp when taking a deep breath. He denies radiation of the pain anywhere. He denies any chest pain, chest pressure, or chest tightness. He denies any recent fevers but does say he has had occasional chills and night sweats over the last couple of days. He also has had a decreased appetite since November stating that he can "think about food and feel full". Denies any notable weight loss or weight gain. Primary Care Provider: Abdulaziz Alexander MD Allergies Allergy/AdvReac Type Severity Reaction Status Date / Time guaifenesin Allergy Unknown SNEEZING Verified 03/17/20 20:18 Ethanol Allergy Unknown SNEEZING Uncoded 03/17/20 20:18 Home Medications Home Medications Medication Instructions Recorded Confirmed Type bupropion HCl 150 mg tablet,12 hr 150 mg PO BID #60 ea 01/18/20 03/17/20 Rx sustained-release albuterol sulfate [Proventil HFA] 2 puffs INH Q6H PRN 03/17/20 03/17/20 History aspirin 650 mg PO Q6H PRN 03/17/20 03/17/20 History multivitamin, stress formula 1 tab PO DAILY 03/17/20 03/17/20 History [Stress Formula] Past Med/Surg History Medical History Depression Hypercholesteremia Hypertension Impaired fasting glucose Lung mass (Inactive) Pleuritic chest pain (Inactive) Pneumonia (Inactive) Smoking Surgical History S/P eye surgery S/P knee surgery S/P shoulder surgery Family History Mother Breast cancer Diabetes Heart disease Sister Breast cancer Father Myocardial infarction Heart disease Hypertension Brother Heart disease Hypertension Denies family history of Ovarian cancer Prostate cancer Colorectal cancer Social History Preferred Language: Qatari Communication Ability: Effective Visual Impairment: No Limitations Hearing Ability: Normal [employer] Department 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: No Beliefs That Will Affect Care: None marital status: Current Living Situation: Spouse current occupational status: retired Other Information That Helps Us Care for You: No Feels Safe at Home: Yes Safety Concerns: Feels Safe At This Time Smoking Status: Former smoker Tobacco Type: cigarettes ; Age Started Using Tobacco: 17 ; packs per day: 1 ; Cigarettes Per Day: half to pack per day ; Do You Dip or Chew Tobacco: No ; Smoking End Date: earlier this month ; Second Hand Exposure: Yes ; Hx Alcohol Use: Yes Alcohol type: beer, wine and hard liquor Alcohol Intake Frequency: Rarely Hx Substance Use: No Dental Care, Regularly: No Review of Systems Constitutional: + chills, + sweats and + fatigue; no fever, no body aches, no weakness, no weight loss, no weight gain and no increased appetite Eyes: no diplopia and no worsening vision Respiratory: + cough, + dyspnea on exertion, + hemoptysis, + pain on inspiration and + sputum production Cardiovascular: no chest pain, no chest pain at rest, no edema and no calf pain Gastrointestinal: + early satiety; no abdominal pain, no nausea, no vomiting, no coffee ground emesis, no hematemesis, no constipation and no diarrhea/loose stools Neurologic: + tingling (chronic right sided sciatica) Physical Exam Constitutional: + acute distress and + obese Eyes: PERRL, conjunctivae normal, anicteric sclerae ENMT: external ear and nose normal, oropharynx normal Neck: trachea midline, no thyromegaly Respiratory: Increased respiratory rate at rest, good air movement throughout both lungs, diffuse inspiratory and expiratory wheezing throughout lungs, no crackles or rhonchi noted. No focal breathing abnormalities noted on posterior or anterior exam. Cardiovascular: RRR, no murmur, no edema Heart Sounds: no gallop and no cardiac rub Extremities: normal capillary refill; no calf tenderness Gastrointestinal (Abdomen): Distended, soft, nontender, normal bowel sounds. Skin: no rashes, warm and dry no jaundice Neurologic: moves all extremities Speech / Cognition: normal speech Motor/Sensory: no tremor Psychiatric: Orientation: alert and oriented x 3 Speech: normal rate/rhythm/volume of speech Mood: + anxious mood Results & Data Results & Data ([facility]) Vital Signs (Past 12 Hours) Vital Signs Temp Pulse Resp BP Pulse Ox 03/17/20 19:31 102 H 30 H 03/17/20 19:30 103 H 30 H 168/99 H 03/17/20 19:26 105 H 20 179/106 H 03/17/20 18:38 03/17/20 17:28 37 C 103 H 22 159/122 H 95 03/17/20 03/17/20 03/17/20 Range/Units 18:40 17:55 17:55 WBC (4.8-10.8) K/uL RBC (4.7-6.1) M/uL Hgb (14.0-18.0) g/dL Hct (42-52) % MCV (80-100) fL MCH (25-34) pg MCHC (32-36) g/dL RDW Std Deviation (36.4-46.3) fL RDW Coeff of Jean (11.5-14.5) % Plt Count (130-400) K/uL MPV (7.4-10.4) fL Immature Gran % (Auto) % Neut % (Auto) % Lymph % (Auto) % Walker % (Auto) % Eos % (Auto) % Baso % (Auto) % Immature Gran # (Auto) (0.00-0.02) K/uL Neut # (Auto) (1.4-6.5) K/uL Lymph # (Auto) (1.2-3.4) K/uL Walker # (Auto) (0.11-0.59) K/uL Eos # (Auto) (0-0.5) K/uL Baso # (Auto) (0-0.2) K/uL PT 10.7 (9.0-12.0) Seconds INR 1.0 (0.9-1.1) APTT 30.3 (21.0-31.0) Seconds PTT Ratio 1.1 Sodium 140 (136-145) mmol/L Potassium 3.9 (3.5-5.1) mmol/L Chloride 107 (98-107) mmol/L Carbon Dioxide 25 (21-32) mmol/L Anion Gap 8.0 (3-11) BUN 15 (7-18) mg/dl Creatinine 1.31 (0.6-1.4) mg/dl Est Cr Clr Drug Dosing 62.6 ml/min Est GFR ( Amer) 64.8 Est GFR (Non-Af Amer) 55.9 BUN/Creatinine Ratio 11.2 (10-20) Glucose 106 H (70-99) mg/dl Lactate 1.4 (0.4-2.0) mmol/L Calcium 8.7 (8.5-10.1) mg/dl Total Bilirubin 0.9 (0.2-1) mg/dl AST 27 (15-37) U/L ALT 30 (12-78) U/L Alkaline Phosphatase 86 (45-117) U/L Troponin I 0.022 (0-0.045) ng/ml Total Protein 7.5 (6.4-8.2) gm/dl Albumin 3.6 (3.4-5.0) gm/dl Globulin 3.9 (2.5-4.0) gm/dl Albumin/Globulin Ratio 0.9 (0.9-2) Lipase 180 (73-393) U/L 03/17/20 Range/Units 17:55 WBC 10.96 H (4.8-10.8) K/uL RBC 4.78 (4.7-6.1) M/uL Hgb 15.5 (14.0-18.0) g/dL Hct 44.6 (42-52) % MCV 93.3 (80-100) fL MCH 32.4 (25-34) pg MCHC 34.8 (32-36) g/dL RDW Std Deviation 47.5 H (36.4-46.3) fL RDW Coeff of Jean 13.9 (11.5-14.5) % Plt Count 234 (130-400) K/uL MPV 8.9 (7.4-10.4) fL Immature Gran % (Auto) 0.3 % Neut % (Auto) 68.1 % Lymph % (Auto) 16.2 % Walker % (Auto) 14.3 % Eos % (Auto) 0.8 % Baso % (Auto) 0.3 % Immature Gran # (Auto) 0.03 H (0.00-0.02) K/uL Neut # (Auto) 7.46 H (1.4-6.5) K/uL Lymph # (Auto) 1.78 (1.2-3.4) K/uL Walker # (Auto) 1.57 H (0.11-0.59) K/uL Eos # (Auto) 0.09 (0-0.5) K/uL Baso # (Auto) 0.03 (0-0.2) K/uL PT (9.0-12.0) Seconds INR (0.9-1.1) APTT (21.0-31.0) Seconds PTT Ratio Sodium (136-145) mmol/L Potassium (3.5-5.1) mmol/L Chloride (98-107) mmol/L Carbon Dioxide (21-32) mmol/L Anion Gap (3-11) BUN (7-18) mg/dl Creatinine (0.6-1.4) mg/dl Est Cr Clr Drug Dosing ml/min Est GFR ( Amer) Est GFR (Non-Af Amer) BUN/Creatinine Ratio (10-20) Glucose (70-99) mg/dl Lactate (0.4-2.0) mmol/L Calcium (8.5-10.1) mg/dl Total Bilirubin (0.2-1) mg/dl AST (15-37) U/L ALT (12-78) U/L Alkaline Phosphatase (45-117) U/L Troponin I (0-0.045) ng/ml Total Protein (6.4-8.2) gm/dl Albumin (3.4-5.0) gm/dl Globulin (2.5-4.0) gm/dl Albumin/Globulin Ratio (0.9-2) Lipase (73-393) U/L CTA Chest: 1. 11 cm right hilar and mediastinal mass with secondary right pulmonary artery encasement and narrowing, as well as encasement and narrowing of the bronchus intermedius, right middle lobe bronchus, right lower lobe bronchi. This mass should be presumed malignant unless proven otherwise. 2. Right lung airspace opacities, likely secondary to a postobstructive pneumonia 3. Small right pleural effusion 4. No evidence of acute pulmonary embolism 5. Bilateral low density adrenal gland thickening Code Status & VTE Plan VTE Prophylaxis Plan VTE Prophylaxis will be ordered: Yes Supervising Physician Co-Signing Physician Notes Attending addendum: I have physically seen this patient, have supervised the medical residents activities, and agree with the H&P unless as otherwise noted. Assessment and Plan: Postobstructive pneumonia/new right lower lobe lung mass- N.p.o. after midnight. Placed on vancomycin IV, cefepime IV and azithromycin IV. Duonebs every 4 hours while awake and every 2 hours when necessary. Consult pulmonology for possible bronchoscopy. Morphine sulfate 4 mg IV every 4 hours as needed severe pain. Zofran 4 mg IV every 6 hours as needed Famotidine 20 mg IV every 12 hours Nasal cannula oxygen, titrate to keep pulse ox around 92%. Remainder of orders and notations as noted. Resident Activity Tracking Resident Involvement: Resident Care Provided Care Provided: Adult Hospital Medicine (1) Pneumonia Laterality: right Lung location: unspecified part of lung Pneumonia type: due to unspecified organism Qualified Code(s): J18.9 - Pneumonia, unspecified organism
[2020-03-17] MEDS ORDERED: ACETAMINOPHEN 500 MG TAB PO PRN (22:27)
[2020-03-17] MEDS ORDERED: PNEUMOCOCCAL ADMINISTRATION CHARGE ONE (22:40)
[2020-03-17] MEDS ORDERED: PNEUMOCOCCAL POLYSACCHARIDES 25 MCG/0.5 ML VIAL/SYR IM ONE (22:40)
[2020-03-18] MEDS: BuPROPion SR 150 MG TABCR PO SCH ×3 (00:22→20:59)
[2020-03-18] MEDS: ALBUT/IPRATROP 3MG/0.5MG NEB 3 ML VIAL INH SCH ×4 (00:58→19:03)
[2020-03-18 05:55] LABS: Basophils # (auto) 0.02 K/uL (0-0.2); Basophils % (auto) 0.2 %; Eosinophils # (auto) 0.06 K/uL (0-0.5); Eosinophils % (auto) 0.7 %; Hematocrit (blood only) 41.5 % (42-52); Hemoglobin 14.4 g/dL (14.0-18.0); Immature Granulocytes # (auto) 0.04 K/uL (0.00-0.02); Immature Granulocytes % (auto) 0.5 %; Lymphocytes # (auto) 1.59 K/uL (1.2-3.4); Lymphocytes % (auto) 19.1 %; Mean Corpuscular Hemoglobin 32.5 pg (25-34); Mean Corpuscular Hgb Conc 34.7 g/dL (32-36); Mean Corpuscular Volume 93.7 fL (80-100); Mean Platelet Volume 8.8 fL (7.4-10.4); Monocytes # (auto) 1.19 K/uL (0.11-0.59); Monocytes % (auto) 14.3 %; Neutrophils # (auto) 5.42 K/uL (1.4-6.5); Neutrophils % (auto) 65.2 %; Platelet Count 180 K/uL (130-400); RDW Coefficient of Variation 14.3 % (11.5-14.5); RDW Standard Deviation 48.6 fL (36.4-46.3); Red Blood Count 4.43 M/uL (4.7-6.1); White Blood Count 8.32 K/uL (4.8-10.8)
[2020-03-18] MEDS: MoRPHine SULFATE 4 MG/ML 1 ML CARP\\VIAL IV PRN ×2 (07:44→15:58)
[2020-03-18] MEDS ORDERED: CEFEPIME 1,000 MG in SYRINGE 0 ML IV SCH ×2 (09:00→22:00)
[2020-03-18] MEDS ORDERED: AZITHROMYCIN 250 MG TAB PO SCH (09:00)
--- NOTE | 2020-03-18 13:53 | Anesthesiology Consultation ---
Date of Service March 18, 2020 Assessment & Plan (1) Encounter for pre-operative examination: Chart Review Chart Review: Acceptable Risk for Surgery and Patient NOT seen in Pre Admission Testing Consults Requested none History Surgery Operation Date: 03/19/20 13:30 Proposed Procedures p Endobronchial Ultrasound - Ray Ashton MD Height/Weight Height: 5 ft 7 in Weight: 103 kg Allergies Allergy/AdvReac Type Severity Reaction Status Date / Time guaifenesin Allergy Unknown SNEEZING Verified 03/17/20 20:18 Ethanol Allergy Unknown SNEEZING Uncoded 03/17/20 20:18 Medications Home Medications Medication Instructions Recorded Confirmed Last Taken bupropion HCl 150 mg tablet,12 hr 150 mg PO BID #60 ea 01/18/20 03/17/20 Unknown sustained-release albuterol sulfate [Proventil HFA] 2 puffs INH Q6H PRN 03/17/20 03/17/20 Unknown aspirin 650 mg PO Q6H PRN 03/17/20 03/17/20 Unknown multivitamin, stress formula 1 tab PO DAILY 03/17/20 03/17/20 Unknown [Stress Formula] Active Medications Generic Name Dose Route Start Last Admin Trade Name Freq PRN Reason Stop Dose Admin Albuterol 3 ml 03/18/20 01:00 03/18/20 13:38 Duoneb INH 04/17/20 00:59 3 ml Q6R JOVANNI Administration Ioversol 116 ml 03/17/20 19:06 03/17/20 19:06 Optiray 320 125ml IV 03/21/20 19:05 116 ml ONCE PRN Administration Interaction Checking Morphine Sulfate 4 mg 03/17/20 22:27 03/18/20 07:44 Morphine Sulfate IV 03/31/20 22:26 4 mg Q4 PRN Administration Pain Past Medical History Medical History Depression Hypercholesteremia Hypertension Impaired fasting glucose Lung mass (Inactive) Pleuritic chest pain (Inactive) Pneumonia (Inactive) Smoking HPI: 65 yo M with PMH HTN, hypercholesterolemia, 50+ pack year smoking history presenting to the ED with new hemoptysis, found to have RLL PNA and new right lung mass on CTA. Past Family History Family History Mother Breast cancer Diabetes Heart disease Sister Breast cancer Father Myocardial infarction Heart disease Hypertension Brother Heart disease Hypertension Denies family history of Ovarian cancer Prostate cancer Colorectal cancer Past Surgical History Surgical History S/P eye surgery S/P knee surgery S/P shoulder surgery Social History Smoking Status: Former smoker tobacco type: cigarettes Smoking cigarettes per day: half to pack per day Do You Dip or Chew Tobacco: No Smoking End Date: earlier this month Hx Alcohol Use: Yes Alcohol type: beer, wine and hard liquor alcohol intake frequency: holidays/special occasions only Alcohol Intake Frequency Comment: occasionally Hx Substance Use: No Physical Exam Vital Signs Last Vital Signs Temp 36.8 C 03/18/20 12:10 Pulse 89 03/18/20 13:40 Resp 19 03/18/20 13:40 BP 153/90 H 03/18/20 12:10 Pulse Ox 99 03/18/20 13:40 Testing Laboratory Results 03/18/20 05:18 03/17/20 17:55 PT 10.7 Seconds (9.0-12.0) 03/17/20 17:55 INR 1.0 (0.9-1.1) 03/17/20 17:55 APTT 30.3 Seconds (21.0-31.0) 03/17/20 17:55 COVID-19 PCR: NEGATIVE on 03/18/2020. Electrocardiogram Date: 03/17/20 Findings: + ST @ (104) Poor data quality, interpretation may be adversely affected Sinus tachycardia Possible Left atrial enlargement Right bundle branch block Anteroseptal infarct , age undetermined Abnormal ECG When compared with ECG of 18-JUL-2013 13:52, Anteroseptal infarct is now Present QT has shortened. Other Testing CT chest 03/17/2020: IMPRESSION: 1. 11 cm right hilar and mediastinal mass with secondary right pulmonary artery encasement and narrowing, as well as encasement and narrowing of the bronchus intermedius, right middle lobe bronchus, right lower lobe bronchi. This mass should be presumed malignant unless proven otherwise. 2. Right lung airspace opacities, likely secondary to a postobstructive pneumonia 3. Small right pleural effusion 4. No evidence of acute pulmonary embolism 5. Bilateral low density adrenal gland thickening
[2020-03-18] MEDS: CEFEPIME 1,000 MG in SYRINGE 0 ML IV SCH (16:53)
--- NOTE | 2020-03-18 18:44 | Pulmonary Consultation ---
Date of Consultation March 18, 2020 Assessment & Plan (1) Lung mass: CTA chest 03/17/2020 personally reviewed: Patient has centrilobular emphysema, right hilar lung mass with narrowing of the right bronchus intermedius. There is associated right-sided pleural effusion as well as right lower lobe infiltrate post obstruction. Mediastinal adenopathy is also appreciated at station 4R, station 7. --Right hilar mass with mediastinal adenopathy In a patient who has greater than [id number] smoking history With partial obstruction of the RBI The likelihood of it being a cancer is very high Plan is to do bronchoscopy with EBUS tomorrow. Platelets 180, PT/INR 10.7/1, PTT 1.1, Risk and benefits of the procedure explained to the patient in depth. Patient understands and agrees to go ahead with it --Right-sided pleural effusion We will see with ultrasound tomorrow post bronchoscopy if there is significant fluid to be tapped With consider doing it. Continue with antibiotics with atypical coverage --COPD Patient will benefit from pulmonary function test as an outpatient Prior to discharge patient can be discharged on lama inhaler --Active smoker Greater than [id number] smoking history Advised to quit Plan: N.p.o. post midnight, D5 half NS at 80 mL an hour starting midnight Bronchoscopy around noon tomorrow. Hold all anticoagulation. (2) COPD (chronic obstructive pulmonary disease): (3) Tobacco use disorder: History of Present Illness Attending Physician: Keshawn Tomas MD History of Present Illness 65 year-old male with past medical history of dyslipidemia was admitted to the hospital with complaints of new onset of cough with exertional shortness of breath which has been going on since last couple of days associated with clear phlegm which is sometimes blood-tinged. Patient denies any no runny nose, no tearing from the eyes, denies any fever or chills. No dysuria, no diarrhea. No abdominal pain, no headache, no blurry vision. He has been complaining of mild right-sided pleuritic chest pain especially when taking deep breaths at the time of presentation but this has since resolved. No recent travel history. Denies any weight loss. Occasional night sweats. No recent travel history. 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 Allergies Allergy/AdvReac Type Severity Reaction Status Date / Time guaifenesin Allergy Unknown SNEEZING Verified 03/17/20 20:18 Ethanol Allergy Unknown SNEEZING Uncoded 03/17/20 20:18 Home Medications Home Medications Medication Instructions Recorded Confirmed Type bupropion HCl 150 mg tablet,12 hr 150 mg PO BID #60 ea 01/18/20 03/17/20 Rx sustained-release albuterol sulfate [Proventil HFA] 2 puffs INH Q6H PRN 03/17/20 03/17/20 History aspirin 650 mg PO Q6H PRN 03/17/20 03/17/20 History multivitamin, stress formula 1 tab PO DAILY 03/17/20 03/17/20 History [Stress Formula] Patient History Medical History Depression Hypercholesteremia Hypertension Impaired fasting glucose Lung mass (Inactive) Pleuritic chest pain (Inactive) Pneumonia (Inactive) Smoking Surgical History S/P eye surgery S/P knee surgery S/P shoulder surgery Family History Mother Breast cancer Diabetes Heart disease Sister Breast cancer Father Myocardial infarction Heart disease Hypertension Brother Heart disease Hypertension Denies family history of Ovarian cancer Prostate cancer Colorectal cancer Social History Preferred Language: Luxembourgish Communication Ability: Effective Visual Impairment: No Limitations Hearing Ability: Normal Sales Clerk Required: No Beliefs That Will Affect Care: None marital status: Current Living Situation: Spouse current occupational status: retired Other Information That Helps Us Care for You: No Feels Safe at Home: Yes Safety Concerns: Feels Safe At This Time Smoking Status: Former smoker Tobacco Type: cigarettes ; Age Started Using Tobacco: 17 ; packs per day: 1 ; Cigarettes Per Day: half to pack per day ; Do You Dip or Chew Tobacco: No ; Smoking End Date: earlier this month ; Second Hand Exposure: Yes ; Hx Alcohol Use: Yes Alcohol type: beer, wine and hard liquor Alcohol Intake Frequency: Rarely Hx Substance Use: No Dental Care, Regularly: No Review of Systems Review of Systems: All systems reviewed & are unremarkable except as noted in HPI & below Physical Exam Physical Exam: Constitutional: No acute distress HEENT: EOMI, PERRLA Respiratory system: Decreased air entry on the right side, positive right lower lobe crackles, no wheeze, no rhonchi CVS: S1-S2 positive, no murmurs or gallops Abdomen: Soft, nontender, nondistended, positive bowel sounds x4 Extremities: +2 pulses bilaterally radialis/ dorsalis pedis, no cyanosis, no edema, no clubbing Neuro: Awake alert oriented x3 Psych: Normal mood and affect G/U: No Fraser Skin: no rashes, warm and dry Lymphatic: no cervical or axillary lymphadenopathy Results & Data Results & Data ([facility]) Vital Signs (Past 12 Hours) Vital Signs Temp Pulse Resp BP BP Pulse Ox 03/18/20 15:51 36.8 C 92 H 32 H 162/96 H 94 03/18/20 13:40 89 19 99 03/18/20 12:10 36.8 C 94 H 18 153/90 H 94 03/18/20 07:30 36.8 C 71 16 137/82 96 03/18/20 07:05 95 H 17 96 03/18/20 05:18 03/17/20 17:55 PG Care Time/CCT Total # of Minutes Spent Total Time Spent with Patient: Total time spent is greater than 50% in coordination of care (as documented) at patient's floor/unit and/or counseling patient: [place] [address] Initial Inpt Care Lvl 3 Patient Type New Diagnoses Lung mass R91.8 COPD (chronic obstructive pulmonary disease) J44.9 Tobacco use disorder F17.200
--- NOTE | 2020-03-18 20:20 | Hospitalist Progress Note ---
Date of Service March 18, 2020 Assessment & Plan (1) Lung mass: High likelihood cancerous. Patient aware Appreciate pulmonology review. Plan for bronchoscopy tomorrow (2) COPD (chronic obstructive pulmonary disease): No current exacerbation. No wheezing on exam PFTs as outpatient Will discuss LAMA inhaler with patient on discharge (3) Tobacco use disorder: Not discussed with patient today as reluctant to have anything done other than workup for lung mass / pain. (4) Depression: Continue wellbutrin (5) Back pain: New onset in last 2 weeks back pain concerning for malignancy with lung mass. Recently diagnosed with Admission and Anticipated Discharge Date Admission Date: March 17, 2020 Subjective Patient reluctant to recap history with me as he has talked to multiple other providers already. He reports no fever, chills or shortness of breath. Continued right sided pleuritic chest pain, severity 9/10 but reporting morphine is helping. Review of Systems Review of Systems: All systems reviewed & are unremarkable except as noted in HPI & below Neurologic: + radiating pain (bilateral back of legs) Physical Exam Constitutional: well developed, well nourished and + obese; no acute distress Eyes: + anicteric sclerae; normal pupil size ENMT: external ear and nose normal, oropharynx normal Neck: trachea midline, no thyromegaly Respiratory: normal respiratory effort; no respiratory distress and does not use accessory muscles Auscultation: + diminished lung sounds (right sided); no crackles and no wheezes Cardiovascular: RRR, no murmur, no edema Extremities: normal capillary refill; no calf tenderness Gastrointestinal (Abdomen): Inspection/Auscultation: abdomen normal to inspection and normal bowel sounds; abdomen not distended Percussion/Palpation: abdomen soft; abdomen nontender, no guarding and abdomen not rigid Musculoskeletal: no cyanosis or clubbing, extremities motor strength 5/5 Skin: no rashes, warm and dry no jaundice Neurologic: moves all extremities and awake; not confused Motor/Sensory: no tremor and no sensory deficit Psychiatric: Orientation: alert and oriented x 3 Results & Data Results & Data ([facility]) Vital Signs (Past 12 Hours) Vital Signs Temp Pulse Resp BP BP Pulse Ox 03/18/20 19:05 103 H 16 93 03/18/20 15:51 36.8 C 92 H 32 H 162/96 H 94 03/18/20 13:40 89 19 99 05/12/20 12:10 36.8 C 94 H 18 153/90 H 94 PG Care Time/CCT Total # of Minutes Spent Total Time Spent with Patient: Total time spent is greater than 50% in coordination of care (as documented) at patient's floor/unit and/or counseling patient: Coding Level of Care Code 20034 Subseq Hosp Care Lvl 2 Diagnoses Lung mass R91.8 COPD (chronic obstructive pulmonary disease) J43.9 COPD type: emphysema Emphysema type: unspecified Tobacco use disorder F17.200 Depression F32.9 Back pain M54.9 (1) COPD (chronic obstructive pulmonary disease) COPD type: emphysema Emphysema type: unspecified Qualified Code(s): J43.9 - Emphysema, unspecified
[2020-03-19] MEDS: MoRPHine SULFATE 4 MG/ML 1 ML CARP\\VIAL IV PRN ×3 (00:22→17:06)
[2020-03-19] MEDS: D5W AND 1/2NSS 1,000 ML IV SCH ×3 (00:23→17:04)
[2020-03-19] MEDS: ALBUT/IPRATROP 3MG/0.5MG NEB 3 ML VIAL INH SCH ×4 (00:48→19:40)
[2020-03-19] MEDS: CEFEPIME 1,000 MG in SYRINGE 0 ML IV SCH ×2 (04:03→17:07)
--- NOTE | 2020-03-19 05:03 | Billing Data ---
Date of Service March 19, 2020 Coding Level of Care Code 69245 Initial Inpt Care Lvl 3
--- NOTE | 2020-03-19 05:13 | Electrocardiogram Report ---
Test Reason : Blood Pressure : / mmHG Vent. Rate : 104 BPM Atrial Rate : 104 BPM P-R Int : 186 ms QRS Dur : 154 ms QT Int : 344 ms P-R-T Axes : 069 051 053 degrees QTc Int : 452 ms Poor data quality, interpretation may be adversely affected Sinus tachycardia Possible Left atrial enlargement Right bundle branch block Anteroseptal infarct , age undetermined Abnormal ECG When compared with ECG of 18-JUL-2013 13:52, Anteroseptal infarct is now Present QT has shortened Confirmed by Geoffrey Urrutia ([id number]) on 03/19/2020 5:13:17 AM Referred By: REFERRED SELF Confirmed By:Geoffrey Urrutia
[2020-03-19 06:28] LABS: Creatinine Clr Calc Pharmacy 65.6 ml/min; Est GFR (African American) 68.6; Est GFR (Non-African American) 59.2
[2020-03-19] MEDS: BuPROPion SR 150 MG TABCR PO SCH ×2 (07:37→20:21)
[2020-03-19] MEDS ORDERED: AZITHROMYCIN 250 MG TAB PO SCH (08:00)
--- NOTE | 2020-03-19 11:22 | Pulmonology Progress Note ---
Date of Service March 19, 2020 Assessment & Plan (1) Lung mass: CTA chest 03/17/2020 personally reviewed: Patient has centrilobular emphysema, right hilar lung mass with narrowing of the right bronchus intermedius. There is associated right-sided pleural effusion as well as right lower lobe infiltrate post obstruction. Mediastinal adenopathy is also appreciated at station 4R, station 7. --Right hilar mass with mediastinal adenopathy In a patient who has greater than 26-tdhs-xumd smoking history With partial obstruction of the RBI The likelihood of it being a cancer is very high Plan is to do bronchoscopy with EBUS today. Platelets 180, PT/INR 10.7/1, PTT 1.1, Risk and benefits of the procedure explained to the patient in depth. Patient understands and agrees to go ahead with it --Right-sided pleural effusion We will see with ultrasound tomorrow post bronchoscopy if there is significant fluid to be tapped Continue with antibiotics with atypical coverage --COPD Patient will benefit from pulmonary function test as an outpatient Prior to discharge patient can be discharged on lama inhaler --Active smoker Greater than 10-cjea-xgpi smoking history Advised to quit Plan: Bronchoscopy today. Procedure is essential and that the benefit of proceeding outweighs the risk of delaying due to COVID. (2) COPD (chronic obstructive pulmonary disease): COPD type: emphysema Emphysema type: unspecified Qualified Code(s): J43.9 - Emphysema, unspecified (3) Tobacco use disorder: Admission and Anticipated Discharge Date Admission Date: March 17, 2020 Subjective Patient seen and examined at bedside. No acute distress, no adverse events overnight. Complains of right-sided pleuritic chest pain. No cough, no more hemoptysis. Denies any fever or chills. Exertional shortness of breath. Review of Systems Review of Systems: All systems reviewed & are unremarkable except as noted in HPI & below Physical Exam Physical Exam: Constitutional: No acute distress HEENT: EOMI, PERRLA Respiratory system: Decreased air entry on the right side, positive right lower lobe crackles, no wheeze, no rhonchi CVS: S1-S2 positive, no murmurs or gallops Abdomen: Soft, nontender, nondistended, positive bowel sounds x4 Extremities: +2 pulses bilaterally radialis/ dorsalis pedis, no cyanosis, no edema, no clubbing Neuro: Awake alert oriented x3 Psych: Normal mood and affect G/U: No Fraesr Patient was saturating 98% with heart rate of 91 on 2 L nasal cannula at rest. Skin: no rashes, warm and dry Lymphatic: no cervical or axillary lymphadenopathy Results & Data Results & Data ([facility]) Vital Signs (Past 12 Hours) Vital Signs Temp Pulse Resp BP Pulse Ox 03/19/20 07:28 36.8 C 87 18 146/84 H 95 03/19/20 07:05 93 H 16 97 03/19/20 00:50 92 H 18 96 03/19/20 00:00 154/84 H 03/18/20 05:18 03/19/20 05:21 PG Care Time/CCT Total # of Minutes Spent Total Time Spent with Patient: Total time spent is greater than 50% in co ordination of care (as documented) at patient's floor/unit and/or counseling patient: Coding Level of Care Code 87170 Subseq Hosp Care Lvl 3 Diagnoses Lung mass R91.8 COPD (chronic obstructive pulmonary disease) J43.9 COPD type: emphysema Emphysema type: unspecified Tobacco use disorder F17.200
[2020-03-19] MEDS ORDERED: PHENYLEPHRINE 100MCG/ML 5ML SYR IV PRN (13:20)
[2020-03-19] MEDS ORDERED: LABETALOL HCL IV 5 MG/ML 20ML IV PRN (13:20)
[2020-03-19] MEDS ORDERED: HYDROmorphone INJ 1 MG/ML SYRINGE IV PRN (13:20)
[2020-03-19] MEDS ORDERED: fentaNYL citrate 100 MCG/2 ML VIAL IV PRN (13:20)
[2020-03-19] MEDS ORDERED: ATROPINE SULFATE 0.1 MG/ML 10ML SYR IV PRN (13:20)
[2020-03-19] MEDS ORDERED: ePHEDrine sulfate 50 MG/ML AMP IV PRN (13:20)
[2020-03-19] MEDS ORDERED: ONDANSETRON INJ 2 MG/ML 2 ML VIAL IV PRN (13:20)
[2020-03-19] MEDS ORDERED: MEPERIDINE HCL 25 MG/ML CARP/VIAL IV PRN (13:20)
[2020-03-19] MEDS ORDERED: fentaNYL citrate 100 MCG/2 ML VIAL ONE (14:10)
[2020-03-19] MEDS ORDERED: DEXAMETHASONE SOD INJ 4 MG/ML VIAL ONE (14:44)
[2020-03-19] MEDS ORDERED: SUCCINYLCHOLINE CHLORIDE 20 MG/ML 10 ML VIAL ONE (14:44)
[2020-03-19] MEDS ORDERED: PROPOFOL IV EMULSION 10 MG/ML 20 ML VIAL IV ONE ×3 (14:44→14:50)
[2020-03-19] MEDS ORDERED: LIDOCAINE HCL 2% 2 ML VIAL/AMP(20MG/ML) INFIL ONE (14:45)
[2020-03-19] MEDS ORDERED: ONDANSETRON INJ 2 MG/ML 2 ML VIAL ONE (14:45)
[2020-03-19] MEDS ORDERED: PHENYLEPHRINE HCL 10 MG/ML VIAL ONE (14:50)
[2020-03-19] MEDS ORDERED: ROCURONIUM BROMIDE 10 MG/ML 5 ML VIAL ONE (14:58)
[2020-03-19] MEDS ORDERED: NEOSTIGMINE METHYLSULFATE 5 MG/5 ML SYR ONE (15:02)
[2020-03-19] MEDS ORDERED: GLYCOPYRROLATE 0.2 MG/ML VIAL ONE (15:03)
--- NOTE | 2020-03-19 15:56 | Procedure Note ---
Procedure Note Date of Service March 19, 2020 PREOPERATIVE DIAGNOSIS: Right hilar mass with mediastinal lymphadenopathy POSTOPERATIVE DIAGNOSIS: Right hilar mass with mediastinal lymphadenopathy PROCEDURE PERFORMED: EBUS with Flexible fiberoptic bronchoscopy with TBNA and Endobronchial biopsy with wash COMPLICATIONS: None. INDICATION: as above PROCEDURE: After obtaining an informed consent, the patient was brought to the Bronchoscopy Suite. The patient had appropriate oxygen, blood pressure, heart rate, and respiratory rate monitoring applied and monitored continuously throughout the procedure. Sedation performed by anesthesia The trachea appeared normal. The bronchoscope was then advanced through the braden, which was broadened. The bronchoscope was advanced into the left mainstem. Each segment and subsegment was well visualized. No specific masses or other lesions were identified throughout the tracheobronchial tree on the left. There was moderate amounts of thick yellowish secretions noted. The scope was subsequently withdrawn and then advanced into the right main stem, there was narrowing of the RBI appreciated. The scope was passed around the mass. The RML and RLL braden was also widened. There mucosa had cobble stonning appearance. There was moderate amounts of thick yellow secretions noted. RUL each segment looked normal. The bronchoscope was then wedged in the RML and bronchoalveolar lavage samples were obtained. 60 ml of saline was instilled and 30 ml of fluid was aspirated back.The bronchoscope was withdrawn and the area was suctioned clear. The bronchoscope was then re-advanced into the RBI and multiple Endobronchial biopsies were taken. Minimal hemorrhage was identified and suctioned clear without difficulty. EBUS was introduced and station 4R and station 7 visualized. TBNA was performed on station 7 as well as the mass itself. From station 7, 4 passes were made. All adequate. From the mass 4 passes were made, again all adequate. The bronchoscope was then withdrawn to the mainstem. The area was suctioned clear. The bronchoscope was then withdrawn. The patient tolerated the procedure well without evidence of desaturation or complications. Bronchoalveolar lavage samples were sent for cell count, Gram stain, and cytology. Endobronchial biopsies were sent for and pathology. Recommendations: Preliminary diagnosis Small cell cancer. F/u CXR F/u Final Pathology and cytology Coding CPT Codes Pulmonary/Thoracic - Pulmonary and Thoracic: 63076 Bronchoscopy, w/EBUS 1 or 2 mediastinal ([id number]) Pulmonary/Thoracic - Pulmonary and Thoracic: 47151 Dx bronchoscopy/wash ([id number]) Pulmonary/Thoracic - Pulmonary and Thoracic: 17854 Bronchoscopy w bronchial or endobronchial bx ([id number]) [facility] [place] Codes (Charges) Pulmonary/Thoracic Procedure 1: Pulmonary and Thoracic: 54500 Bronchoscopy, w/EBUS 1 or 2 mediastinal Procedure 2: Pulmonary and Thoracic: 37737 Dx bronchoscopy/wash Procedure 3: Pulmonary and Thoracic: 01722 Bronchoscopy w bronchial or endobronchial bx
--- NOTE | 2020-03-19 16:28 | XRay Report ---
XR chest 1V portable CLINICAL HISTORY: s/p bronch COMPARISON STUDY: Chest CT March 17, 2020. FINDINGS: There is no pneumothorax. Right lung mass is again noted. Right lower lung airspace opacity has slightly increased. Cardiomegaly is noted. Right hilar/mediastinal adenopathy is depicted on varsha st CT. There is pulmonary vascular congestion without evidence for overt pulmonary edema. IMPRESSION: 1. No pneumothorax following bronchoscopy. 2. Redemonstration of the large right lung mass. Increase in right basilar opacity. ACT 112: Negative or not required by law. Electronically signed by: Manan Hale M.D. 03/19/2020 4:26 PM
--- NOTE | 2020-03-19 16:34 | Anesthesiology Progress Note ---
Date of Service March 19, 2020 Anesthesia Post Procedure Vital Signs Vital Signs: Temp Pulse Pulse Resp BP BP Pulse Ox 03/19/20 16:25 36.6 C 92 H 25 H 127/81 97 03/19/20 16:15 96 H 24 121/75 97 03/19/20 16:06 36.4 C L 93 H 16 128/75 93 03/19/20 12:26 36.7 C 94 H 22 155/86 H 97 03/19/20 07:28 36.8 C 87 18 146/84 H 95 03/19/20 07:05 93 H 16 97 03/19/20 00:50 92 H 18 96 03/19/20 00:00 154/84 H 03/18/20 22:58 151/82 H 03/18/20 22:57 36.9 C 94 H 18 169/100 H 98 03/18/20 21:22 95 03/18/20 21:06 03/18/20 19:05 103 H 16 93 Pulse Ox 03/19/20 16:25 03/19/20 16:15 03/19/20 16:06 03/19/20 12:26 03/19/20 07:28 03/19/20 07:05 03/19/20 00:50 03/19/20 00:00 03/18/20 22:58 03/18/20 22:57 03/18/20 21:22 03/18/20 21:06 95 03/18/20 19:05 Pain Intensity Right Chest: Pain Intensity: 8 Bilateral Leg: Pain Intensity: 8 Transfer of Care Handoff Completed per policy Notes Mental Status: alert / awake / arousable Patient Amnestic to Procedure: Yes Nausea / Vomiting: adequately controlled Pain: adequately controlled Airway Patency, RR, SpO2: stable & adequate BP & HR: stable & adequate Hydration State: stable & adequate Anesthetic Complications: no major complications apparent
[2020-03-19 20:38] LABS: Eosinophil Body Fluid Man 0 %; Fluid Mono/Macrophage 71 %; Lymphocyte Body Fluid Man 23 %; Neutrophil Body Fluid Man 6 %
--- NOTE | 2020-03-19 22:15 | Hospitalist Progress Note ---
Date of Service March 19, 2020 Assessment & Plan (1) Lung mass: s/p bronchoscopy - concerning for small cell lung cancer Appreciate pulmonology management. (2) Pneumonia: Post obstructive. Discussed with Dr Ashton - continue current IV antibiotics pending possible US guided pleural fluid aspiration in AM. (3) Pleural effusion on right: Possible US guided thoracocentesis as above. Dr Ashton to evaluate in AM. (4) COPD (chronic obstructive pulmonary disease): No current exacerbation. No wheezing on exam PFTs as outpatient Will discuss LAMA inhaler with patient on discharge as per pulm recommendations (5) Tobacco use disorder: No current cravings. Does not feel he needs to have any nicotine replacement products. (6) Depression: Continue wellbutrin (7) Back pain: New onset in last 2 weeks back pain concerning for malignancy with lung mass. Recently diagnosed with Admission and Anticipated Discharge Date Admission Date: March 17, 2020 Subjective Patient doing well after bronchoscopy. No shortness of breath. Ongoing chest pain at baseline. Discussed with Dr Ashton as patient was under the impression he was going home. Advised to stay overnight for review by Dr Ashton in AM. Review of Systems Review of Systems: All systems reviewed & are unremarkable except as noted in HPI & below Musculoskeletal: + back pain and + radicular pain Physical Exam Constitutional: well developed, well nourished and + obese; no acute distress Eyes: + anicteric sclerae; normal pupil size ENMT: external ear and nose normal, oropharynx normal Neck: trachea midline, no thyromegaly Respiratory: normal respiratory effort; no respiratory distress and does not use accessory muscles Auscultation: + diminished lung sounds (right sided); no crackles and no wheezes Neurologic: moves all extremities and awake; not confused Psychiatric: Orientation: alert and oriented x 3 Results & Data Results & Data ([facility]) Vital Signs (Past 12 Hours) Vital Signs Temp Pulse Pulse Resp BP BP Pulse Ox 03/19/20 19:40 36.7 C 101 H 16 151/81 H 91 03/19/20 18:48 37.4 C 111 H 16 162/74 H 90 03/19/20 17:41 36.5 C 99 H 18 135/82 90 03/19/20 17:09 36.4 C L 94 H 16 135/80 91 03/19/20 16:40 36.9 C 93 H 16 124/77 96 03/19/20 16:25 36.6 C 92 H 25 H 127/81 97 03/19/20 16:15 96 H 24 121/75 97 03/19/20 16:06 36.4 C L 93 H 16 128/75 93 03/19/20 12:26 36.7 C 94 H 22 155/86 H 97 PG Care Time/CCT Total # of Minutes Spent Total Time Spent with Patient: Total time spent is greater than 50% in coordination of care (as documented) at patient's floor/unit and/or counseling patient: Coding Level of Care Code 96864 Subseq Hosp Care Lvl 2 Diagnoses Lung mass R91.8 Pneumonia J18.9 Laterality: right Lung location: unspecified part of lung Pneumonia type: due to unspecified organism Pleural effusion on right J90 COPD (chronic obstructive pulmonary disease) J43.9 COPD type: emphysema Emphysema type: unspecified Tobacco use disorder F17.200 Depression F32.9 Back pain M54.9 (1) COPD (chronic obstructive pulmonary disease) COPD type: emphysema Emphysema type: unspecified Qualified Code(s): J43.9 - Emphysema, unspecified (2) Pneumonia Laterality: right Lung location: unspecified part of lung Pneumonia type: due to unspecified organism Qualified Code(s): J18.9 - Pneumonia, unspecified organism
[2020-03-20] MEDS: ALBUT/IPRATROP 3MG/0.5MG NEB 3 ML VIAL INH SCH ×2 (00:49→06:52)
[2020-03-20] MEDS: CEFEPIME 1,000 MG in SYRINGE 0 ML IV SCH (04:26)
[2020-03-20 06:04] LABS: Hematocrit (blood only) 40.2 % (42-52); Hemoglobin 13.8 g/dL (14.0-18.0); Immature Granulocytes # (auto) 0.03 K/uL (0.00-0.02); Immature Granulocytes % (auto) 0.2 %; Lymphocytes # (auto) 1.52 K/uL (1.2-3.4); Lymphocytes % (auto) 11.4 %; Mean Corpuscular Hemoglobin 32.2 pg (25-34); Mean Corpuscular Hgb Conc 34.3 g/dL (32-36); Mean Corpuscular Volume 93.9 fL (80-100); Mean Platelet Volume 8.8 fL (7.4-10.4); Monocytes # (auto) 1.28 K/uL (0.11-0.59); Monocytes % (auto) 9.6 %; Neutrophils # (auto) 10.47 K/uL (1.4-6.5); Neutrophils % (auto) 78.8 %; Platelet Count 238 K/uL (130-400); RDW Standard Deviation 48.1 fL (36.4-46.3); Red Blood Count 4.28 M/uL (4.7-6.1)
[2020-03-20 06:36] LABS: BUN Creatinine Ratio 12.9 (10-20); Calcium 8.6 mg/dl (8.5-10.1); Creatinine Clr Calc Pharmacy 58.1 ml/min; Est GFR (African American) 59.3; Est GFR (Non-African American) 51.2; Potassium 4.4 mmol/L (3.5-5.1)
[2020-03-20] MEDS: BuPROPion SR 150 MG TABCR PO SCH (07:43)
--- NOTE | 2020-03-20 09:31 | Procedure Note ---
Procedure Note Date of Service March 20, 2020 Procedure: Diagnostic therapeutic ultrasound-guided catheter thoracentesis Clinical Education Academic Coordinator: Dr. Ray Ashton Indication: Pleural effusion Consent: Signed by patient and verified with timeout prior to procedure Anesthesia: 1% lidocaine without epinephrine local. Procedure: Consent was verified and timeout performed. Appropriate imaging studies were reviewed prior to the procedure. Patient was placed in a seated position and limited thoracic ultrasound was performed of the right chest. See separate imaging. Appropriate site above the diaphragm for thoracentesis was selected. The skin was prepped and draped in normal sterile fashion. Lidocaine was used for local analgesia. Fluid was aspirated via the finder needle. A small skin robinson was made with the scalpel and the catheter over the needle apparatus was advanced over the rib into the pleural space. Using the syringe one-way valve system, a total of 1000 mL's of bloody fluid was removed. The catheter was removed and observed to be intact. A sterile dressing was applied. Good lung sliding was appreciated postprocedure. Post procedure chest x-ray was ordered. Fluid was sent for labs, culture and cytology. The patient tolerated the procedure without obvious complication Blood loss: Less than 2 cc Coding CPT Codes Pulmonary/Thoracic - Pulmonary and Thoracic: 50686 Thoracentesis w imaging ([id number]) [facility] [place] Procedure Codes (Charges) Pulmonary/Thoracic Procedure 1: Pulmonary and Thoracic: 57454 Thoracentesis w imaging
--- NOTE | 2020-03-20 09:33 | Pulmonology Progress Note ---
Date of Service March 20, 2020 Assessment & Plan (1) Lung mass: CTA chest 03/17/2020 personally reviewed: Patient has centrilobular emphysema, right hilar lung mass with narrowing of the right bronchus intermedius. There is associated right-sided pleural effusion as well as right lower lobe infiltrate post obstruction. Mediastinal adenopathy is also appreciated at station 4R, station 7. --Right hilar mass with mediastinal adenopathy In a patient who has greater than 70-hkir-lgkx smoking history With partial obstruction of the RBI Status post EBUS 03/19/2020. Preliminary diagnosis likely represents small cell cancer --Right-sided pleural effusion Status post thoracentesis 03/20/2020 Bloody liter of fluid was removed. Follow-up cytology and culture Continue with antibiotics with atypical coverage --COPD Patient will benefit from pulmonary function test as an outpatient Prior to discharge patient can be discharged on lama inhaler --Active smoker Greater than 12-ylwj-eiup smoking history Advised to quit Plan: Please make the patient walk in the corridor on room air and monitor his pulse ox if the saturation goes below 88% then he will need home O2. Patient will need MRI of the brain to rule out mets in the brain. Patient will need PET/CT as an outpatient. Recommend follow-up with an oncologist as well as radiation oncology. Patient is to follow-up with me as an outpatient to have his baseline pulmonary function test done. All the above needs to be done as soon as possible. If the chest x-ray postprocedure shows no signs of pneumothorax patient will be cleared from pulmonary perspective on antibiotics for total of 10 days. Please note the above document was generated using voice recognition software. It may contain grammatical, syntax or spelling errors. (2) COPD (chronic obstructive pulmonary disease): COPD type: emphysema Emphysema type: unspecified Qualified Code(s): J43.9 - Emphysema, unspecified (3) Tobacco use disorder: Admission and Anticipated Discharge Date Admission Date: March 17, 2020 Subjective Patient seen and examined at bedside. No acute distress, no adverse events overnight. Patient still states that he has tightness in the right side of the chest and has mild pleuritic chest pain when he takes deep breath. Occasional cough with clear phlegm. No hemoptysis. Good appetite. No nausea or vomiting. Physical Exam Physical Exam: Constitutional: No acute distress HEENT: EOMI, PERRLA Respiratory system: Decreased air entry on the right side, positive right lower lobe crackles, no wheeze, no rhonchi CVS: S1-S2 positive, no murmurs or gallops, tachycardia Abdomen: Soft, nontender, nondistended, positive bowel sounds x4 Extremities: +2 pulses bilaterally radialis/ dorsalis pedis, no cyanosis, no edema, no clubbing Neuro: Awake alert oriented x3 Psych: Normal mood and affect G/U: No Fraser Patient was saturating 94% on room air with heart rate of 101 at rest. Skin: no rashes, warm and dry Lymphatic: no cervical or axillary lymphadenopathy Results & Data Results & Data ([facility]) Vital Signs (Past 12 Hours) Vital Signs Temp Pulse Pulse Resp BP BP Pulse Ox 03/20/20 07:15 36.8 C 90 18 157/77 H 92 03/20/20 06:52 90 18 93 03/20/20 03:17 36.9 C 101 H 16 146/77 H 92 03/20/20 00:50 101 H 20 92 03/19/20 23:14 98 H 94 03/19/20 23:09 36.3 C L 105 H 16 165/90 H 160/89 H 91 03/20/20 05:50 03/20/20 05:50 PG Care Time/CCT Total # of Minutes Spent Total Time Spent with Patient: Total time spent is greater than 50% in coordination of care (as documented) at patient's floor/unit and/or counseling patient: Coding Level of Care Code 61070 Subseq Hosp Care Lvl 3 Diagnoses Lung mass R91.8 COPD (chronic obstructive pulmonary disease) J43.9 COPD type: emphysema Emphysema type: unspecified Tobacco use disorder F17.200
--- NOTE | 2020-03-20 09:41 | XRay Report ---
XR chest 1V portable CLINICAL HISTORY: 65 years-old Male presenting with S/P Thoracentesis. TECHNIQUE: Portable upright AP view of the chest was obtained. COMPARISON: 03/19/2020. FINDINGS: Atherosclerosis of the aortic arch. Cardiac silhouette enlarged. Decreased size of the right pleural effusion status post reported thoracentesis. Improved aeration of the right mid to lower lung. No pne umothorax is appreciable. Left lung and pleural space clear. Degenerative changes of the thoracic spi ne. Upper abdomen normal. IMPRESSION: 1. Decreased size of the now small right pleural effusion and improved aeration of the right lung. P ersistent underlying right mid to lower lung consolidation/atelectasis. 2. Cardiomegaly without significant volume overload or congestive change. ACT 112: Negative or not required by law. Electronically signed by: Aurelio Abrams M.D. 03/20/2020 9:40 AM
[2020-03-20 10:03] LABS: Glucose Pleural Fluid 117 mg/dl
[2020-03-20 10:08] LABS: Amylase Pleural Fluid 47 U/L; LDH Pleural Fluid 256 U/L; Total Protein Pleural Fluid 4.3 g/dl
[2020-03-20 10:43] LABS: Albumin Level 3.4 gm/dl (3.4-5.0); Bilirubin,Total 0.8 mg/dl (0.2-1); Total Protein 7.2 gm/dl (6.4-8.2)
[2020-03-20 11:03] LABS: Appearance Pleural Fluid BLOODY; Color Pleural Fluid RED; RBC Pleural Fluid (A) 44000 /uL; Source Pleural Fluid RIGHT LUNG; WBC Pleural Fluid (A) 1637 /uL
[2020-03-20 11:04] LABS: Basophils, Fluid 0 %; Eosinophils, Fluid 0 %; Lymphocytes, Fluid 84 %; Mono,Macrophage,Mesothelial 9 %; Neutrophils, Fluid 7 %
--- NOTE | 2020-03-20 12:33 | Discharge Summary ---
Date of Service March 20, 2020 Admission Exam Per Admitting Provider Constitutional: + acute distress and + obese Eyes: PERRL, conjunctivae normal, anicteric sclerae ENMT: external ear and nose normal, oropharynx normal Neck: trachea midline, no thyromegaly Respiratory: Increased respiratory rate at rest, good air movement throughout both lungs, diffuse inspiratory and expiratory wheezing throughout lungs, no crackles or rhonchi noted. No focal breathing abnormalities noted on posterior or anterior exam. Cardiovascular: RRR, no murmur, no edema Heart Sounds: no gallop and no cardiac rub Extremities: normal capillary refill; no calf tenderness Gastrointestinal (Abdomen): Distended, soft, nontender, normal bowel sounds. Skin: no rashes, warm and dry no jaundice Neurologic: moves all extremities Speech / Cognition: normal speech Motor/Sensory: no tremor Psychiatric: Orientation: alert and oriented x 3 Speech: normal rate/rhythm/volume of speech Mood: + anxious mood Principal Diagnosis Suspected small cell lung cancer Post-obstructive pneumonia Discharge Exam Constitutional well developed, well nourished and + obese; no acute distress Eyes + anicteric sclerae; normal pupil size Respiratory normal respiratory effort; no respiratory distress and does not use accessory muscles Auscultation: + diminished lung sounds (right sided); no crackles and no wheezes Musculoskeletal no cyanosis or clubbing, extremities motor strength 5/5 Skin no rashes, warm and dry Neurologic moves all extremities and awake; not confused Psychiatric Orientation: alert and oriented x 3 Discharge Data Allergies Allergy/AdvReac Type Severity Reaction Status Date / Time guaifenesin Allergy Unknown SNEEZING Verified 03/17/20 20:18 Ethanol Allergy Unknown SNEEZING Uncoded 03/17/20 20:18 Consultations 03/17/20 21:38 ED Decision to Admit Stat 03/18/20 07:22 Consult Pulmonology Routine 03/20/20 09:37 Consult Case Management - Discharge Planning Routine 03/20/20 10:55 Consult LANNYG piecer up Routine Procedures Performed Operation Date: 03/19/20 14:00 Actual Procedures p Endobronchial Ultrasound(Not Applicable) - Ray Ashton MD Ordered Studies 03/17/20 18:15 CT angio chest PE protocol Stat 03/18/20 09:16 US point of care ultrasound Urgent 03/20/20 08:43 US point of care ultrasound Urgent Hospital Course (1) Lung mass: Dyllan Dehaas is a 65 year old male admitted to [facility] from March 17 to 2019 due to chest pain and cough. Subsequent CXR and CT concerning for lung cancer and post-obstructive PNA, he underwent EBUS performed by Dr Ashton on March 19 with preliminary biopsy is concerning for a small cell cancer. MRI brain and PET scans are being arranged for further workup for this. He also underwent ultrasound guided thoracocentesis (for diagnostic purposes), the results of this are still pending on discharge but effusion appears malignant rather than infected. He was treated for a post-obstructive pneumonia with IV Cefepime. This was switched to Ceftin on discharge as per pulmonology recommendation to complete treatment course. Pulmonology recommended daily LAMA inhaler for his COPD although no exacerbation was suspected during this hospitalization. Stop aspirin (using this for pain). Advised to use acetaminophen, naproxen +/- oxycodone for his pleuritic pain. On discharge he still had significant pain but wished to go home and has not been requesting much pain medication here despite his high severity of pain. Of note he was also complaining of back pain for the last two weeks radiating down both legs. Clearly this is concerning for metastatic bone disease given above diagnosis however he refused any specific imaging for this and had a recent XR performed by his chiropractor but again he refused a request for this imaging. Since he will be having a PET scan this matter was not further investigated per the patient wishes. (2) Pneumonia: (3) Pleural effusion on right: (4) COPD (chronic obstructive pulmonary disease): (5) Tobacco use disorder: (6) Depression: (7) Back pain: Total Time Total Time Spent Total Time Spent (In Minutes): 35 Discharge Plan Discharge Items Patient Disposition: Home - Self-Care Reason For Visit: SHORTNESS OF BREATH,PNEUMONIA,NEW LUNG MASS Discharge Diagnosis: Suspected small cell lung cancer Condition on Discharge: Fair Activity: Per Instructions section Lifting: Gradually increase as tolerated Non-emergency contact: Primary Care Provider Call non-emergency contact if: you have any medication questions, your symptoms worsen and your temperature is above 101 Follow-up/Referrals: Abdulaziz Alexander III, MD [Primary Care Provider] - Rafael Gooden MD [Physician] - 03/28/20 9:00 am (Radiation oncology appt. with Dr. Gooden March, at 9:00am. This will be a two hour appointment) Roland Schwartz DO [Physician] - (Dr. Schwartz's office will call you with an appt. time and date.) Ray Ashton MD [Physician] - 03/24/20 10:45 am (An appointment has been made for you with Dr. Ashton for pulmonary function testing on March 24 at 10:45am.) Diet: Regular Addtl Attending Provider Instructions: You were admitted to [facility] from March 17 to 2019 due to chest pain and cough. Subsequent imaging was concerning for lung cancer. You underwent EBUS (endoscopic bronchial ultrasound) performed by Dr Ashton on March 19. Preliminary biopsy is concerning for a small cell cancer. MRI brain and PET scans are being arranged for further workup for this. You also underwent ultrasound guided thoracocentesis (for diagnostic purposes), the results of this are still pending on discharge. Please see above for follow up appointment. In addition behind this mass were findings concerning for pneumonia. You were treated with intravenous antibiotics for this while admitted and will require 5 days of further antibiotics as prescribed. There was also concern for COPD related to your smoking and Dr Ashton recommended started on Spiriva inhaler daily as prescribed. Recommend stopping aspirin to reduce risk of coughing up blood. For pain use acetaminophen (over the counter), if this is not helping try naproxen (as prescribed, only if not coughing blood) or with more severe pain I have prescribed oxycodone. Do not drive or operate heavy machinery while taking the oxycodone. Ondansetron is prescribed for nausea as this is the most common side effect from oxycodone. Kind regards, Dr Keshawn Tomas You have been scheduled for a MRI of your brain at [facility] on 03/24 at 5:15pm You have been scheduled for a PET scan on 03/28 at 7:00am, this is right before your appt. with Dr. Gooden and is at the same location, [facility]. This is located at the back of the hospital. Should you need to change the PET scan appt. please call [phone]. Pending Studies at Discharge: Yes Stand-Alone Forms: [facility], Smoking Cessation Medications and DC Order Prescriptions: New oxycodone 5 mg tablet 5 mg PO Q6H PRN (Reason: pain) Qty: 14 RF: 0 cefuroxime axetil 500 mg tablet 500 mg PO BID 5 Days Qty: 10 RF: 0 naproxen 500 mg tablet 500 mg PO BID PRN (Reason: pain) Qty: 30 RF: 0 Spiriva with HandiHaler 18 mcg capsule, w/inhalation device 1 cap INH DAILY Qty: 30 RF: 0 ondansetron 4 mg tablet,disintegrating 4 mg PO Q6H PRN (Reason: nausea and vomiting) 7 Days Qty: 7 RF: 0 Continued bupropion HCl [Wellbutrin SR] 150 mg tablet sustained-release 12 hr 150 mg PO BID Qty: 60 RF: 5 albuterol sulfate [Proventil HFA] 90 mcg/actuation HFA aerosol inhaler 2 puffs INH Q6H PRN (Reason: Shortness Of Breath Or Wheezing) RF: 0 Discontinued Stress Formula Tablet 1 tab PO DAILY RF: 0 aspirin 325 mg Tablet 650 mg PO Q6H PRN (Reason: Pain) RF: 0 No Action (DME) Oxygen Home Liters Per Minute See Rx Instructions .ROUTE .MEDSUPPLY Qty: 1 RF: 0 (DME) Portable Oxygen Misc See Rx Instructions .ROUTE .MEDSUPPLY Qty: 1 RF: 0 Discharge Orders: Discharge Order (Routine); Ordered 03/20/20 Ordered By: Keshawn Tomas Admission Data Admit Date/Time: 03/17/20 20:46 Attending Provider: Keshawn Tomas Admit Provider: Noemi Henderson Primary Care Provider: Abdulaziz Alexander III Other Providers: Naldo Carrington Muqueet Other Interventions: Discharge Summary Assessment (RN) Last Done: 03/20/20 12:37 DC Date/Time DO NOT enter until pt leaves facility: 03/20/20 12:59 Coding Level of Care Code D/C Day Management >30 mins Diagnoses Lung mass R91.8 Pneumonia J18.9 Laterality: right Lung location: unspecified part of lung Pneumonia type: due to unspecified organism Pleural effusion on right J90 COPD (chronic obstructive pulmonary disease) J43.9 COPD type: emphysema Emphysema type: unspecified Tobacco use disorder F17.200 Depression F32.9 Back pain M54.9
== END 2020-03-20 12:59 | disposition home or self-care (01) | DRG 194 ==
LOC: ED 17:20 → 3E 20:46 → SUATTDRO 20:46 → 3E 21:40 → 1E 03-18 12:07 → 3E 03-18 14:35

== ENCOUNTER 2021-01-05 07:05 | Inpatient (IN) ==
[2021-01-05] MEDS ORDERED: LORazepam 0.5 MG/1 ML VIAL IV STA (07:47)
--- NOTE | 2021-01-05 07:52 | Emergency Department Note ---
Impression & Plan Altered mental status, Intracranial mass, Brain metastases, Brain edema ED Provider Note NAME: DALLAS SKY AGE: 65 SEX: M : 1955 ARRIVES VIA: Walk-In INFORMANT: [Patient][] ED PROVIDER(S): [Cezar Goncalves MD] CHIEF COMPLAINT: Weakness, confusion HISTORY OF PRESENT ILLNESS: The patient is a 65-year-old male who presents with increasing confusion and weakness for over 1 month. 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 He is scheduled to have an MRI of his brain this week. Things are worsening though and he presents with his for evaluation. The patient had a low-grade temperature this morning, he is not had increased cough or congestion. He wears 2 L of oxygen at all times. He has not had vomiting or diarrhea. The weakness is generalized, not one-sided. The patient's is concerned that her may be dehydrated. His intake has decreased. She also states that he has been sleeping quite a bit. He is confused about the time of day and oftentimes, confused when he tries to talk although, there has been no speech slur. REVIEW OF SYSTEMS: See HPI for pertinent positives and negatives. A total of ten systems were reviewed and were otherwise negative. PMHx/PSHx: See Below SOCIAL HISTORY: See Below. PHYSICAL EXAM: GENERAL: Patient is in no acute distress. HEENT: No acute trauma, normocephalic atraumatic, mucous membranes dry, no nasal congestion, no scleral icterus. NECK: No stridor, no adenopathy, no meningismus, trachea is midline. LUNGS: Clear to auscultation bilaterally, no wheeze, no rhonchi, breath sounds equal. Chest: There is a bandaged with a catheter underneath along the right lateral chest wall. HEART: Without murmurs gallops or rubs, regular rate and rhythm. ABDOMEN: Soft, nontender, bowel sounds positive, no hernias, no peritonitis. EXTREMITIES: No cyanosis or edema, full range of motion of all the joints without pain or difficulty, no signs for acute trauma. NEUROLOGIC: Awake and alert, no acute motor or sensory deficits, no focal weakness. No extremity drift or speech slur. SKIN: No rash, no jaundice, no diaphoresis. DIFFERENTIAL DIAGNOSIS: Infection, dehydration, metabolic abnormality, brain metastases, hypo/hyperglyc emia, electrolyte disturbance, anemia, hypoxia, cardiac sources, UTI, intracerebral event, toxicologic issues, stroke, TIA, as well as other pathologies. EMERGENCY DEPARTMENT COURSE/PROCEDURES: ECG: Indication was weakness. The ECG shows a normal sinus rhythm with a right bundle branch block. There is an old anterior infarct. The QTc is 468. There is no ST elevation, there is some nonspecific ST change, no PVCs. Compared to an ECG from 01 November 2020, there is no significant change. Continuous Cardiac Monitoring: An order was placed for continuous cardiac monitoring. The monitor shows a rate of 68 with normal sinus rhythm. MEDICAL DECISION MAKING: There is no leukocytosis or concerning anemia. VBG demonstrates a very mild CO2 elevation. No acidosis. No significant electrolyte abnormality or kidney failure. Lactic acid level is not elevated making sepsis less likely. No worrisome liver enzyme elevation. The ammonia level is normal. The patient appears to be in a euthyroid state. ECG shows a sinus rhythm, there is no acute ischemia. Cardiac enzyme testing x1 is not consistent with acute cardiac injury. Urinalysis does not show infection. Covid testing is negative. Chest film does not show pneumonia or CHF. The right-sided pleural effusion was slightly larger than before. Brain CT demonstrates evidence for brain metastases and edema. On exam, the patient seemed sleepy and somewhat confused at times, no focal extremity deficit. Patient received IV saline, 500 cc. He was given IV Decadron to help with the brain edema. He received IV Ativan in preparation for his CT scan, he gets very anxious with CTs. The patient has brain metastases and edema. This certainly explains his change in mentation and confusion. Hospitalization is warranted. I spoke with the patient's cancer service. They did recommend Decadron and talked about consulting radiation oncology. The patient can stay at our hospital. I spoke to the patient and his about the findings. The was of course very upset. I did speak with family caseworker. The on-call hospitalist was consulted. Past Med/Surg History Medical History Back pain Colon polyps Confusion COPD (chronic obstructive pulmonary disease) Depression with anxiety Diverticulosis Dyslipidemia GERD (gastroesophageal reflux disease) Gout Hypertension Inhibited sexual excitement Leukocytosis Lump of skin Lung cancer (03/2020) small cell lung CA, right sided mass, dx 03/2020 - stage IV w/ mets to liver, bone, nodes On home O2 2 LPM QHS; DAILY PRN Osteoarthritis Palliative care encounter Pleural effusion on right Chronic. PleurX catheter since 11/01/20 Pneumonia hospitalized 03/17/2020 [facility] Restrictive lung disease Tobacco use disorder Stopped 03/2020 Vertigo x 1 episode Surgical History History of cataract surgery (~2017) History of colonoscopy (~2014) History of knee surgery RT X 2, LT X 2 History of shoulder surgery (~2001) LEFT X 2 History of thoracentesis (03/20/20) tapped 03/20/2020 - rt pleural effusion Port-A-Cath in place (04/22/20) Insertion of Mediport Left Cephalic Vein Dr. Toro 04/22/20 Status post bronchoscopy with biopsy (03/19/20) Family History Mother , Passed age 84 of CHF Diabetes Heart disease Breast cancer, Onset Age: 78 Sister , Passed in early 40's of breast cancer No problems noted. Father , Passed age 53 of [place] Heart disease Myocardial infarction Hypertension Sister Breast cancer Sister Breast cancer Brother , Passed age 30 of MVA No problems noted. Brother , Passed age 56 of [place] No problems noted. Brother , Passed age 78 of "heart" Prostate cancer Daughter No problems noted. Son No problems noted. Son No problems noted. Other No family history of adverse response to anesthesia Denies family history of Ovarian cancer Colorectal cancer Social History Smoking Status: Current every day smoker Age Started Using Tobacco: 17; Age Quit Using Tobacco: 65; packs per day: 1; Cigarettes Per Day: 6; Second Hand Exposure: No; Do You Dip or Chew Tobacco: No; Hx Alcohol Use: No Hx Substance Use: No Preferred Language: Bulgarian Communication Ability: Impaired Visual Impairment: No Limitations Hearing Ability: Normal Rn Case Management Required: No Beliefs That Will Affect Care: None marital status: Current Living Situation: Spouse current occupational status: retired 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 Other Information That Helps Us Care for You: No Feels Safe at Home: Yes Safety Concerns: Feels Safe At This Time Childhood Exposure to Second-Hand Smoke: Yes caffeine: No Dental Care, Regularly: No Assistive Devices: Denture - Upper, Denture - Lower, Glasses and Oxygen - Continuous Allergies Allergies Allergy/AdvReac Type Severity Reaction Status Date / Time guaifenesin Allergy Unknown SNEEZING Verified 01/05/21 07:57 Home Meds Home Medications Medication Instructions Recorded Confirmed fentanyl 25 mcg/hr transdermal 1 patch TRANSDERMAL Q72H 08/07/20 01/05/21 patch acetaminophen [Tylenol Extra 1,000 mg PO DAILY PRN 01/05/21 01/05/21 Strength] vitamin B complex [B Complex] 1 cap PO DAILY 01/05/21 01/05/21 Previous Rx's Medication Instructions Recorded ondansetron HCl 4 mg tablet 4 mg PO Q8H PRN #90 tab 10/09/20 albuterol sulfate 90 mcg/actuation 2 puff INH Q6H PRN #18 g 10/21/20 aerosol inhaler tiotropium bromide 18 mcg capsule 1 cap INH DAILY #30 puffs 10/21/20 with inhalation device levocetirizine 5 mg tablet 5 mg PO DAILY PRN #30 tab 12/11/20 metoprolol succinate 25 mg 25 mg PO DAILY #30 tab 12/22/20 tablet,extended release 24 hr Results & Data (ED) Vital Signs Vital Signs - 24 hr 01/05/21 07:10 01/05/21 07:55 01/05/21 08:10 Temperature 36.6 C Temperature Source Oral Pulse Rate 70 68 Pulse Rate from SpO2 Sensor 70 Pulse Rhythm Regular Pulse Strength Normal Respiratory Rate 20 19 Respiratory Effort / Characteristics Non-Labored Spontaneous Respiratory Depth Normal Respiratory Pattern Regular Blood Pressure 163/93 H 159/86 H Blood Pressure Mean 116 110 Pulse Oximetry 97 95 97 Oxygen Delivery Method Room Air Nasal Cannula Nasal Cannula Oxygen Flow Rate 2 2 Sepsis Recent Fever Within 48 Hours No Sepsis New/Unexplained Change in Mental Status N/A Sepsis Action Taken by Nursing No Action Required 01/05/21 08:52 01/05/21 09:00 01/05/21 09:41 Temperature Temperature Source Pulse Rate 72 64 63 Pulse Rate from SpO2 Sensor 72 63 64 Pulse Rhythm Pulse Strength Respiratory Rate 17 14 24 Respiratory Effort / Characteristics Respiratory Depth Respiratory Pattern Blood Pressure 181/95 H 189/97 H 184/79 H Blood Pressure Mean 123 127 114 Pulse Oximetry 98 99 100 Oxygen Delivery Method Nasal Cannula Nasal Cannula Nasal Cannula Oxygen Flow Rate 2 2 Sepsis Recent Fever Within 48 Hours Sepsis New/Unexplained Change in Mental Status Sepsis Action Taken by Custodial Medications Current Medication List: was personally reviewed by me Laboratory Data Attestation: I reviewed the patient's lab results. Result diagrams: 01/05/21 07:58 01/05/21 07:58 Lab Results 01/05/21 01/05/21 01/05/21 Range/Units 07:58 07:58 07:58 WBC 6.33 (4.8-10.8) K/uL RBC 4.31 L (4.7-6.1) M/uL Hgb 13.4 L (14.0-18.0) g/dL Hct 39.0 L (42-52) % MCV 90.5 (80-100) fL MCH 31.1 (25-34) pg MCHC 34.4 (32-36) g/dL RDW Std Deviation 46.6 H (36.4-46.3) fL RDW Coeff of Jean 14.0 (11.5-14.5) % Plt Count 142 (130-400) K/uL MPV 8.3 (7.4-10.4) fL Immature Gran % (Auto) 0.2 % Neut % (Auto) 75.3 % Lymph % (Auto) 14.2 % [place] % (Auto) 8.7 % Eos % (Auto) 1.1 % Baso % (Auto) 0.5 % Neut # (Auto) 4.77 (1.4-6.5) K/uL Lymph # (Auto) 0.90 L (1.2-3.4) K/uL [place] # (Auto) 0.55 (0.11-0.59) K/uL Eos # (Auto) 0.07 (0-0.5) K/uL Baso # (Auto) 0.03 (0-0.2) K/uL Immature Gran # (Auto) 0.01 (0.00-0.02) K/uL VBG pH (7.36-7.41) VBG pCO2 (38-50) mmHg VBG pO2 mmHg VBG HCO3 mmol/L VBG O2 Saturation % VBG Base Excess mEq/L Barometric Pressure mm/Hg Sodium 142 (136-145) mmol/L Potassium 3.8 (3.5-5.1) mmol/L Chloride 107 (98-107) mmol/L Carbon Dioxide 28 (21-32) mmol/L Anion Gap 7.0 (3-11) BUN 14 (7-18) mg/dl Creatinine 1.04 (0.6-1.4) mg/dl Est Cr Clr Drug Dosing Not Reportable Est GFR ( Amer) 85.7 Est GFR (Non-Af Amer) 73.9 BUN/Creatinine Ratio 13.3 (10-20) Glucose 112 H (70-99) mg/dl Lactate 1.1 (0.4-2.0) mmol/L Calcium 9.0 (8.5-10.1) mg/dl Magnesium 2.0 (1.8-2.4) mg/dl Total Bilirubin 0.8 (0.2-1) mg/dl AST 17 (15-37) U/L ALT 31 (12-78) U/L Alkaline Phosphatase 44 L (45-117) U/L Ammonia (11-32) umol/L Troponin I 0.015 (0-0.045) ng/ml Total Protein 6.5 (6.4-8.2) gm/dl Albumin 3.5 (3.4-5.0) gm/dl Globulin 3.0 (2.5-4.0) gm/dl Albumin/Globulin Ratio 1.2 (0.9-2) TSH 0.605 (0.300-4.500) uIu/ml Urine Color Urine Appearance (Clear) Urine pH (4.5-7.5) Ur Specific Wheeler (1.000-1.030) Urine Protein (Negative) Urine Glucose (UA) (Negative) Urine Ketones (Negative) Urine Blood (Negative) Urine Nitrite (Negative) Urine Bilirubin (Negative) Urine Urobilinogen (Negative) Ur Leukocyte Esterase (Negative) 01/05/21 01/05/21 01/05/21 Range/Units 07:58 08:44 09:15 WBC (4.8-10.8) K/uL RBC (4.7-6.1) M/uL Hgb (14.0-18.0) g/dL Hct (42-52) % MCV (80-100) fL MCH (25-34) pg MCHC (32-36) g/dL RDW Std Deviation (36.4-46.3) fL RDW Coeff of Jean (11.5-14.5) % Plt Count (130-400) K/uL MPV (7.4-10.4) fL Immature Gran % (Auto) % Neut % (Auto) % Lymph % (Auto) % [place] % (Auto) % Eos % (Auto) % Baso % (Auto) % Neut # (Auto) (1.4-6.5) K/uL Lymph # (Auto) (1.2-3.4) K/uL [place] # (Auto) (0.11-0.59) K/uL Eos # (Auto) (0-0.5) K/uL Baso # (Auto) (0-0.2) K/uL Immature Gran # (Auto) (0.00-0.02) K/uL VBG pH 7.36 (7.36-7.41) VBG pCO2 52 H (38-50) mmHg VBG pO2 34 mmHg VBG HCO3 29 mmol/L VBG O2 Saturation 64.0 % VBG Base Excess 2.7 mEq/L Barometric Pressure 726.1 mm/Hg Sodium (136-145) mmol/L Potassium (3.5-5.1) mmol/L Chloride (98-107) mmol/L Carbon Dioxide (21-32) mmol/L Anion Gap (3-11) BUN (7-18) mg/dl Creatinine (0.6-1.4) mg/dl Est Cr Clr Drug Dosing Est GFR ( Amer) Est GFR (Non-Af Amer) BUN/Creatinine Ratio (10-20) Glucose (70-99) mg/dl Lactate (0.4-2.0) mmol/L Calcium (8.5-10.1) mg/dl Magnesium (1.8-2.4) mg/dl Total Bilirubin (0.2-1) mg/dl AST (15-37) U/L ALT (12-78) U/L Alkaline Phosphatase (45-117) U/L Ammonia 22.7 (11-32) umol/L Troponin I (0-0.045) ng/ml Total Protein (6.4-8.2) gm/dl Albumin (3.4-5.0) gm/dl Globulin (2.5-4.0) gm/dl Albumin/Globulin Ratio (0.9-2) TSH (0.300-4.500) uIu/ml Urine Color Yellow Urine Appearance Clear (Clear) Urine pH 7.5 (4.5-7.5) Ur Specific Wheeler 1.015 (1.000-1.030) Urine Protein Negative (Negative) Urine Glucose (UA) Negative (Negative) Urine Ketones Negative (Negative) Urine Blood Negative (Negative) Urine Nitrite Negative (Negative) Urine Bilirubin Negative (Negative) Urine Urobilinogen Negative (Negative) Ur Leukocyte Esterase Negative (Negative) Administered Medications Discontinued Medications Dexamethasone (Dexamethasone Sod Inj 10 Mg/Ml Vial) 10 mg IV NOW ONE Stop: 01/05/21 08:55 Last Admin: 01/05/21 09:09 Dose: 10 mg Documented by: [id number] Sodium Chloride (Nss) 500 mls @ 999 mls/hr IV .Q31M JOVANNI Stop: 01/05/21 08:30 Last Infusion: 01/05/21 08:57 Dose: 0 mls/hr Documented by: [id number] Admin: 01/05/21 08:04 Dose: 999 mls/hr Documented by: [id number] Lorazepam (Ativan) 0.5 mg in 1 mls @ 1 mls/min IV NOW STA Stop: 01/05/21 07:48 Last Admin: 01/05/21 08:08 Dose: 1 mls/min Documented by: [id number] Dexamethasone 6 mg/ Syringe 1.5 mls @ 1 mls/min IV NOW STA Stop: 01/05/21 10:06 Last Admin: 01/05/21 10:23 Dose: Not Given Documented by: [id number] Imaging Data Radiologist's Impression: XR chest 1V portable HISTORY: 65 years-old Male weakness acute weakness COMPARISON: Chest CT 12/11/2020, chest radiographs 11/04/2020 TECHNIQUE: Portable AP view of the chest FINDINGS: Cardiomediastinal and hilar silhouettes are within normal limits. No pneumothorax. The left lung is clear. Small right pleural effusion with right lung base opacities, mildly progressed. A right-sided chest tube is noted with distal tip overlying the right suprahilar lung, similar to comparison. Degenerative changes of the shoulders and spine. IMPRESSION: 1. Mildly increased size of the small right pleural effusion with progressed right lung base opacities. 2. Stable positioning of the right-sided chest tube. 3. No pneumothorax. CT OF THE HEAD WITHOUT CONTRAST CLINICAL HISTORY: Confusion. COMPARISON STUDY: No previous studies for comparison. CT DOSE: 614.27 mGy.cm TECHNIQUE: Helical axial images of the head were obtained without IV contrast. Automated exposure control was utilized for the study. A dose lowering technique was utilized adhering to the principles of ALARA. FINDINGS: No acute intracranial hemorrhage is present. Note is made of multiple sites of vasogenic edema due to underlying parenchymal masses which are suboptimally assessed on this unenhanced exam. A left temporal lobe lesion m easures approximately 4 cm. This has significant associated vasogenic edema with compression of the left lateral ventricle and 7 mm of rightward midline shift. There is sulcal effacement. Note is also made of vasogenic edema within the right parietal lobe and the left cerebellar hemisphere. The fourth ventricle is effaced due to the edema. There is no evidence for hydrocephalus at this time. Mass effect within the posterior fossa is noted with fullness at the level the foramen magnum. No calvarial lesions are identified. IMPRESSION: Multiple supratentorial and infratentorial intra-axial lesions consistent with metastatic disease. The largest is a left temporal lobe lesion with significant vasogenic edema which results in sulcal effacement, compression of the left lateral ventricle and 7 mm rightward midline shift. Left cerebellar lesion with effacement of the fourth ventricle and mass effect within the posterior fossa with fullness at the level of the foramen magnum. An MRI of the brain with and without contrast is recommended for further evaluation. Discharge Plan Visit Data Chief Complaint: Illness Stated Complaint: CONFUSION,WEAKNESS,SLIGHT HEADACHES ED Provider: Cezar Goncalves Discharge Problem: Altered mental status, Intracranial mass, Brain metastases, Brain edema Patient Disposition: Admitted As Inpatient Condition: Serious Discharge Instructions Interventions: ED Discharge Assessment Last Done: 01/05/21 11:45 Discharge Problem: Altered mental status Qualifiers: Altered mental status type: disorientation Qualified Code(s): R41.0 - Disorientation, unspecified
[2021-01-05] MEDS ORDERED: SODIUM CHLORIDE 0.9% 500 ML IV SCH (08:00)
[2021-01-05 08:10] LABS: Basophils # (auto) 0.03 K/uL (0-0.2); Basophils % (auto) 0.5 %; Eosinophils # (auto) 0.07 K/uL (0-0.5); Eosinophils % (auto) 1.1 %; Hemoglobin 13.4 g/dL (14.0-18.0); Immature Granulocytes # (auto) 0.01 K/uL (0.00-0.02); Immature Granulocytes % (auto) 0.2 %; Lymphocytes % (auto) 14.2 %; Mean Corpuscular Hemoglobin 31.1 pg (25-34); Mean Corpuscular Hgb Conc 34.4 g/dL (32-36); Mean Corpuscular Volume 90.5 fL (80-100); Mean Platelet Volume 8.3 fL (7.4-10.4); Monocytes # (auto) 0.55 K/uL (0.11-0.59); Monocytes % (auto) 8.7 %; Neutrophils # (auto) 4.77 K/uL (1.4-6.5); Neutrophils % (auto) 75.3 %; Platelet Count 142 K/uL (130-400); RDW Standard Deviation 46.6 fL (36.4-46.3); Red Blood Count 4.31 M/uL (4.7-6.1); White Blood Count 6.33 K/uL (4.8-10.8)
--- NOTE | 2021-01-05 08:22 | XRay Report ---
XR chest 1V portable HISTORY: 65 years-old Male weakness acute weakness COMPARISON: Chest CT 12/11/2020, chest radiographs 11/04/2020 TECHNIQUE: Portable AP view of the chest FINDINGS: Cardiomediastinal and hilar silhouettes are within normal limits. No pneumothorax. The left lung is c lear. Small right pleural effusion with right lung base opacities, mildly progressed. A right-sided c hest tube is noted with distal tip overlying the right suprahilar lung, similar to comparison. Degene rative changes of the shoulders and spine. IMPRESSION: 1. Mildly increased size of the small right pleural effusion with progressed right lung base opacitie s. 2. Stable positioning of the right-sided chest tube. 3. No pneumothorax. ACT 112: Negative or not required by law. The above report was generated using voice recognition software. It may contain grammatical, syntax o r spelling errors. Electronically signed by: Cheko Morris M.D. 01/05/2021 8:21 AM
[2021-01-05 08:27] LABS: Alanine Aminotransferase 31 U/L (12-78); Albumin Level 3.5 gm/dl (3.4-5.0); Aspartate Aminotransferase 17 U/L (15-37); BUN Creatinine Ratio 13.3 (10-20); Blood Urea Nitrogen 14 mg/dl (7-18); Carbon Dioxide 28 mmol/L (21-32); Chloride 107 mmol/L (98-107); Est GFR (African American) 85.7; Est GFR (Non-African American) 73.9; Glucose 112 mg/dl (70-99); Potassium 3.8 mmol/L (3.5-5.1); Sodium 142 mmol/L (136-145)
[2021-01-05 08:37] LABS: Albumin Globulin Ratio 1.2 (0.9-2); Alkaline Phosphatase 44 U/L (45-117); Bilirubin,Total 0.8 mg/dl (0.2-1); Thyroid Stimulating Hormone 0.605 uIu/ml (0.300-4.500); Total Protein 6.5 gm/dl (6.4-8.2); Troponin I 0.015 ng/ml (0-0.045)
--- NOTE | 2021-01-05 08:43 | CT Scan Report ---
CT OF THE HEAD WITHOUT CONTRAST CLINICAL HISTORY: Confusion. COMPARISON STUDY: No previous studies for comparison. CT DOSE: 614.27 mGy.cm TECHNIQUE: Helical axial images of the head were obtained without IV contrast. Automated exposure con trol was utilized for the study. A dose lowering technique was utilized adhering to the principles o f ALARA. FINDINGS: No acute intracranial hemorrhage is present. Note is made of multiple sites of vasogenic ed katt due to underlying parenchymal masses which are suboptimally assessed on this unenhanced exam. A l eft temporal lobe lesion measures approximately 4 cm. This has significant associated vasogenic edema with compression of the left lateral ventricle and 7 mm of rightward midline shift. There is sulcal effacement. Note is also made of vasogenic edema within the right parietal lobe and the left cerebell ar hemisphere. The fourth ventricle is effaced due to the edema. There is no evidence for hydrocephal us at this time. Mass effect within the posterior fossa is noted with fullness at the level the ant en magnum. No calvarial lesions are identified. IMPRESSION: Multiple supratentorial and infratentorial intra-axial lesions consistent with metastati c disease. The largest is a left temporal lobe lesion with significant vasogenic edema which results in sulcal effacement, compression of the left lateral ventricle and 7 mm rightward midline shift. Lef t cerebellar lesion with effacement of the fourth ventricle and mass effect within the posterior nallely a with fullness at the level of the foramen magnum. An MRI of the brain with and without contrast is recommended for further evaluation. ACT 112: Negative or not required by law. Electronically signed by: Manan Hale M.D. 01/05/2021 8:41 AM
[2021-01-05] MEDS ORDERED: DEXAMETHASONE SOD INJ 10 MG/ML VIAL IV ONE (08:54)
[2021-01-05 09:02] LABS: Base Excess VBG 2.7 mEq/L; pH VBG 7.36 (7.36-7.41)
[2021-01-05 09:25] LABS: Appearance Urine Clear (Clear); Bilirubin Urine Negative (Negative); Blood Urine Negative (Negative); Color Urine Yellow; Glucose Urine UA Negative (Negative); Ketones Urine Negative (Negative); Leukocyte Esterase Urine Negative (Negative); Nitrite Urine Negative (Negative); Protein Urine Negative (Negative); Specific Gravity Urine 1.015 (1.000-1.030); Urobilinogen Urine Negative (Negative); pH Urine 7.5 (4.5-7.5)
--- NOTE | 2021-01-05 09:52 | History & Physical Report ---
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 now with changes in mental status and CT head shows numerous brain mets start on Decadron 4mg IV q12 consult hematology, recommend hospice consult palliative care to discuss goals of care wants hospice, DNR currently he is being treated with Xgeva as maintenance but was put on hold due to jaw pain he does not have pain, does not have dyspnea, eating well prior to this admission (2) Confusion: due to brain mets start on Decadron palliative care recommends Zyprexa trial (3) Brain metastases: new finding, very numerous with brain edema no plans for radiation therapy, no need for MRI brain (4) Brain edema: Decadron (5) Pleural effusion on right: managed with PleurX, will ask RN to drain today as it is typical time for him to drain at home normally gets about 300mL out each week (6) CKD (chronic kidney disease) stage 3, GFR 30-59 ml/min: Cr is stable (7) COPD (chronic obstructive pulmonary disease): stable on baseline 2L NC History of Present Illness Chief Complaint: Patien is confused Primary Care Provider: Abdulaziz Alexander MD 65 yo male with recent history of small cell lung cancer, 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 Most recent notes from oncology note that his disease has been stable, CT scans have shown no progression in disease and he has been eating well, maint aining weight. He has a right PleurX in place for metastatic pleural effusion, he drains this once a week now, gets about 300mL out each time. His noted the confusion started a few weeks ago and has progressed. There were plans for an MRI of the brain this week to evaluate for brain mets but she could not keep him at home any longer the confusion and behavior got so bad. Vitals in the ED were stable, he was on his 2L of oxygen that he always wears. Labs were normal. CT head showed numerous brain mets with cerebral edema. He was given Dexamethasone 10mg IV and admission requested. Discussed the new diagnosis with his at the bedside at the time of admission, she was very tearful. She said that they had never discussed code status or living will. She and the patient had been cautiously optimistic that he was going to live for a while based on his recent scans. She was devastated by the news. She agrees to consultation with palliative care after I explained that there is no cure, can try dexamethasone for symptoms. Allergies Allergy/AdvReac Type Severity Reaction Status Date / Time guaifenesin Allergy Unknown SNEEZING Verified 01/05/21 07:57 Home Medications Medication Instructions Recorded Confirmed Type fentanyl 25 mcg/hr transdermal 1 patch TRANSDERMAL Q72H 08/07/20 01/05/21 History patch ondansetron HCl 4 mg tablet 4 mg PO Q8H PRN #90 tab 10/09/20 01/05/21 Rx albuterol sulfate 90 mcg/actuation 2 puff INH Q6H PRN #18 g 10/21/20 01/05/21 Rx aerosol inhaler tiotropium bromide 18 mcg capsule 1 cap INH DAILY #30 puffs 10/21/20 01/05/21 Rx with inhalation device levocetirizine 5 mg tablet 5 mg PO DAILY PRN #30 tab 12/11/20 01/05/21 Rx metoprolol succinate 25 mg 25 mg PO DAILY #30 tab 12/22/20 01/05/21 Rx tablet,extended release 24 hr acetaminophen [Tylenol Extra 1,000 mg PO DAILY PRN 01/05/21 01/05/21 History Strength] vitamin B complex [B Complex] 1 cap PO DAILY 01/05/21 01/05/21 History Past Med/Surg History Medical History Back pain Colon polyps Confusion COPD (chronic obstructive pulmonary disease) Depression with anxiety Diverticulosis Dyslipidemia GERD (gastroesophageal reflux disease) Gout Hypertension Inhibited sexual excitement Leukocytosis Lump of skin Lung cancer (03/2020) small cell lung CA, right sided mass, dx 03/2020 - stage IV w/ mets to liver, bone, nodes On home O2 2 LPM QHS; DAILY PRN Osteoarthritis Palliative care encounter Pleural effusion on right Chronic. PleurX catheter since 11/01/20 Pneumonia hospitalized 03/17/2020 [facility] Restrictive lung disease Tobacco use disorder Stopped 03/2020 Vertigo x 1 episode Surgical History History of cataract surgery (~2017) History of colonoscopy (~2014) History of knee surgery RT X 2, LT X 2 History of shoulder surgery (~2001) LEFT X 2 History of thoracentesis (03/20/20) tapped 03/20/2020 - rt pleural effusion Port-A-Cath in place (04/22/20) Insertion of Mediport Left Cephalic Vein Dr. Toro 04/22/20 Status post bronchoscopy with biopsy (03/19/20) Family History Mother , Passed age 84 of CHF Diabetes Heart disease Breast cancer, Onset Age: 78 Sister , Passed in early 40's of breast cancer No problems noted. Father , Passed age 53 of [place] Heart disease Myocardial infarction Hypertension Sister Breast cancer Sister Breast cancer Brother , Passed age 30 of MVA No problems noted. Brother , Passed age 56 of [place] No problems noted. Brother , Passed age 78 of "heart" Prostate cancer Daughter No problems noted. Son No problems noted. Son No problems noted. Other No family history of adverse response to anesthesia Denies family history of Ovarian cancer Colorectal cancer Social History Smoking Status: Current every day smoker Age Started Using Tobacco: 17; Age Quit Using Tobacco: 65; packs per day: 1; Cigarettes Per Day: 6; Second Hand Exposure: No; Do You Dip or Chew Tobacco: No; Hx Alcohol Use: No Hx Substance Use: No Preferred Language: Indonesian Communication Ability: Impaired Visual Impairment: No Limitations Hearing Ability: Normal Change Analyst Required: No Beliefs That Will Affect Care: None marital status: Current Living Situation: Spouse current occupational status: retired 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 Other Information That Helps Us Care for You: No Feels Safe at Home: Yes Safety Concerns: Feels Safe At This Time Childhood Exposure to Second-Hand Smoke: Yes caffeine: No Dental Care, Regularly: No Assistive Devices: None Review of Systems Review of Systems: Unobtainable due to cognitive status (confused) Physical Exam Constitutional: WD/WN, vitals as above + altered mental status (confused); no acute distress Eyes: PERRL, conjunctivae normal, anicteric sclerae ENMT: external ear and nose normal, oropharynx normal Neck: trachea midline, no thyromegaly Respiratory: normal respiratory effort; no respiratory distress, no cough and not tachypneic Auscultation: lungs clear to auscultation bilaterally and + diminished lung sounds (right base) Cardiovascular: RRR, no murmur, no edema Gastrointestinal (Abdomen): normal bowel sounds, soft, nontender, no hepatosplenomegaly Musculoskeletal: no cyanosis or clubbing, extremities motor strength 5/5 Skin: no rashes, warm and dry Neurologic: normal touch/pain/proprioception, CN's II-XI intact bilaterally, awake and + confused; no focal motor deficits Psychiatric: Orientation: alert, oriented to person, oriented to place and cooperative; + not oriented to time Lymphatic: no cervical or axillary lymphadenopathy Results & Data Results & Data ([facility]) Vital Signs (Past 12 Hours) Vital Signs Temp Pulse Resp BP Pulse Ox 01/05/21 09:41 63 24 184/79 H 100 01/05/21 09:00 64 14 189/97 H 99 01/05/21 08:52 72 17 181/95 H 98 01/05/21 08:10 68 19 159/86 H 97 01/05/21 07:55 95 01/05/21 07:10 36.6 C 70 20 163/93 H 97 Laboratory Results Laboratory Results - last 24 hr 01/05/21 01/05/21 01/05/21 07:58 07:58 07:58 WBC 6.33 RBC 4.31 L Hgb 13.4 L Hct 39.0 L MCV 90.5 MCH 31.1 MCHC 34.4 RDW Std Deviation 46.6 H RDW Coeff of Jean 14.0 Plt Count 142 MPV 8.3 Immature Gran % (Auto) 0.2 Neut % (Auto) 75.3 Lymph % (Auto) 14.2 [place] % (Auto) 8.7 Eos % (Auto) 1.1 Baso % (Auto) 0.5 Neut # (Auto) 4.77 Lymph # (Auto) 0.90 L [place] # (Auto) 0.55 Eos # (Auto) 0.07 Baso # (Auto) 0.03 Immature Gran # (Auto) 0.01 VBG pH VBG pCO2 VBG pO2 VBG HCO3 VBG O2 Saturation VBG Base Excess Barometric Pressure Sodium 142 Potassium 3.8 Chloride 107 Carbon Dioxide 28 Anion Gap 7.0 BUN 14 Creatinine 1.04 Est Cr Clr Drug Dosing Not Reportable Est GFR ( Amer) 85.7 Est GFR (Non-Af Amer) 73.9 BUN/Creatinine Ratio 13.3 Glucose 112 H Lactate 1.1 Calcium 9.0 Magnesium 2.0 Total Bilirubin 0.8 AST 17 ALT 31 Alkaline Phosphatase 44 L Ammonia Troponin I 0.015 Total Protein 6.5 Albumin 3.5 Globulin 3.0 Albumin/Globulin Ratio 1.2 TSH 0.605 Urine Color Urine Appearance Urine pH Ur Specific [place] Urine Protein Urine Glucose (UA) Urine Ketones Urine Blood Urine Nitrite Urine Bilirubin Urine Urobilinogen Ur Leukocyte Esterase 01/05/21 01/05/21 01/05/21 07:58 08:44 09:15 WBC RBC Hgb Hct MCV MCH MCHC RDW Std Deviation RDW Coeff of Jean Plt Count MPV Immature Gran % (Auto) Neut % (Auto) Lymph % (Auto) [place] % (Auto) Eos % (Auto) Baso % (Auto) Neut # (Auto) Lymph # (Auto) [place] # (Auto) Eos # (Auto) Baso # (Auto) Immature Gran # (Auto) VBG pH 7.36 VBG pCO2 52 H VBG pO2 34 VBG HCO3 29 VBG O2 Saturation 64.0 VBG Base Excess 2.7 Barometric Pressure 726.1 Sodium Potassium Chloride Carbon Dioxide Anion Gap BUN Creatinine Est Cr Clr Drug Dosing Est GFR ( Amer) Est GFR (Non-Af Amer) BUN/Creatinine Ratio Glucose Lactate Calcium Magnesium Total Bilirubin AST ALT Alkaline Phosphatase Ammonia 22.7 Troponin I Total Protein Albumin Globulin Albumin/Globulin Ratio TSH Urine Color Yellow Urine Appearance Clear Urine pH 7.5 Ur Specific [place] 1.015 Urine Protein Negative Urine Glucose (UA) Negative Urine Ketones Negative Urine Blood Negative Urine Nitrite Negative Urine Bilirubin Negative Urine Urobilinogen Negative Ur Leukocyte Esterase Negative Diagnostic Findings CT OF THE HEAD WITHOUT CONTRAST CLINICAL HISTORY: Confusion. FINDINGS: No acute intracranial hemorrhage is present. Note is made of multiple sites of vasogenic edema due to underlying parenchymal masses which are suboptimally assessed on this unenhanced exam. A left temporal lobe lesion measures approximately 4 cm. This has significant associated vasogenic edema with compression of the left lateral ventricle and 7 mm of rightward midline shift. There is sulcal effacement. Note is also made of vasogenic edema within the right parietal lobe and the left cerebellar hemisphere. The fourth ventricle is effaced due to the edema. There is no evidence for hydrocephalus at this time. Mass effect within the posterior fossa is noted with fullness at the level the foramen magnum. No calvarial lesions are identified. IMPRESSION: Multiple supratentorial and infratentorial intra-axial lesions consistent with metastatic disease. The largest is a left temporal lobe lesion with significant vasogenic edema which results in sulcal effacement, compression of the left lateral ventricle and 7 mm rightward midline shift. Left cerebellar lesion with effacement of the fourth ventricle and mass effect within the posterior fossa with fullness at the level of the foramen magnum. An MRI of the brain with and without contrast is recommended for further evaluation. XR chest 1V portable HISTORY: 65 years-old Male weakness acute weakness IMPRESSION: 1. Mildly increased size of the small right pleural effusion with progressed right lung base opacities. 2. Stable positioning of the right-sided chest tube. 3. No pneumothorax. PG Care Time/CCT Total # of Minutes Spent Total Time Spent with Patient: Total time spent is greater than 50% in coordination of care (as documented) at patient's floor/unit and/or counseling patient: Coding Level of Care Code 75602 Initial Inpt Care Lvl 3 Diagnoses Lung cancer C34.90 Confusion R41.0 Brain metastases C79.31 Brain edema G93.6 Pleural effusion on right J90 CKD (chronic kidney disease) stage 3, GFR 30-59 ml/min N18.30 COPD (chronic obstructive pulmonary disease) J44.9
[2021-01-05] MEDS ORDERED: dexAMETHasone 6 MG in SYRINGE 0 ML IV STA (10:05)
[2021-01-05] MEDS ORDERED: ONDANSETRON INJ 2 MG/ML 2 ML VIAL IV PRN (12:00)
--- NOTE | 2021-01-05 12:47 | Palliative Care Consultation ---
Date of Consultation January 05, 2021 Assessment & Plan (1) Palliative care encounter: Dyllan is an unfortunate 65 male who has extensive small cell lung cancer with metastasis to his live and bone. He was on maintenance therapy with Atezolizumab, but apparently has been experiencing worsening confusion and weakness over the past week. Upon arrival to the ED, a head CT was ordered and it was found that he had vasogenic edema with brain metastasis. Decadron was initiated. Unfortunately, Dyllan is confused and while he is able to follow some simple commands, currently, he is not able to participate in overall goals of care. Palliative Care was consulted to discuss goals of care. I visited with Dyllan in room 317. He was confused. He is able to answer simple questions about his orientation and follow simple commands but unable to participate in decision making at this time. I called Chely, his of 19 years at [phone] and she indicated that this advancement of his disease is a shock to her as he was stable with treatment. Now, with brain mets, she does not want him to go through any additional curative or palliative treatment, including XRT. I did discuss XRT with her one 2 separate occasions and she declined further treatment, including palliative XRT. She indicated she would like him to be at home. We discussed Hospice and she was very agreeable to such. She has additional support of her daughter and son who live on the same street and his adult children that will rotate from out of town furthest away is [facility]) We discussed brain mets and possible aggressive behavior which is a concern I have, especially with the possibility of PTSD behaviors surfacing towards end of life. Should he return home and behaviors or aggressive behavior exacerbate, certainly respite care either inpatient at the hospital, or at a SNF could be arranged. Case management reached out to Chely to arrange further at home hospice care, and a referral has been placed to [facility]. From a symptom management standpoint, the patient has had intermittent aggressive behavior and taken his strength and size into consideration, I think having Zyprexa available PRN may be helpful. I do forsee that his behaviors may be challenging to manage and I did discuss that if indicated, sedation may be necessary. Of course, for now trying to manage symptoms with keeping him as awake and interactive as possible with positive interaction is the goal. Palliative will follow. (2) Lung cancer: Stage IV. No further treatment wanting to be pursued be family. More Hospice approach at home, case management assisting (3) PTSD (post-traumatic stress disorder): concern for agitation related to PTSD that may become exacerbated towards the end of his life. Benefit vs risk regarding Decadron possibly exacerbating these symptoms Will order Zyprexa PRN for agitation, if necessary could also make this scheduled. (4) Confusion: Pt thinks he is in a meeting and states his 's name is "Delmi", but it is Chely. History of Present Illness Reason for Consultation: Goals of Care Requesting Physician: Dr. Fields Attending Physician: Marshall Fields, DO History of Present Illness Dyllan is an unfortunate 65 male who has extensive small cell lung cancer with metastasis to his live and bone. He was on maintenance therapy with Atezolizumab, but apparently has been experiencing worsening confusion and weakness over the past week. Upon arrival to the ED, a head CT was ordered and it was found that he had vasogenic edema with brain metastasis. Decadron was initiated. Unfortunately, Dyllan is confused and while he is able to follow some simple commands, currently, he is not able to participate in overall goals of care. Palliative Care was consulted to discuss goals of care. Please see A/P for further details. Thank you for involving palliative care with this individual. Allergies Allergy/AdvReac Type Severity Reaction Status Date / Time guaifenesin Allergy Unknown SNEEZING Verified 01/05/21 07:57 Home Medications Medication Instructions Recorded Confirmed Type fentanyl 25 mcg/hr transdermal 1 patch TRANSDERMAL Q72H 08/07/20 01/05/21 History patch ondansetron HCl 4 mg tablet 4 mg PO Q8H PRN #90 tab 10/09/20 01/05/21 Rx albuterol sulfate 90 mcg/actuation 2 puff INH Q6H PRN #18 g 10/21/20 01/05/21 Rx aerosol inhaler tiotropium bromide 18 mcg capsule 1 cap INH DAILY #30 puffs 10/21/20 01/05/21 Rx with inhalation device levocetirizine 5 mg tablet 5 mg PO DAILY PRN #30 tab 12/11/20 01/05/21 Rx metoprolol succinate 25 mg 25 mg PO DAILY #30 tab 12/22/20 01/05/21 Rx tablet,extended release 24 hr acetaminophen [Tylenol Extra 1,000 mg PO DAILY PRN 01/05/21 01/05/21 History Strength] vitamin B complex [B Complex] 1 cap PO DAILY 01/05/21 01/05/21 History Patient History Medical History Back pain Colon polyps Confusion COPD (chronic obstructive pulmonary disease) Depression with anxiety Diverticulosis Dyslipidemia GERD (gastroesophageal reflux disease) Gout Hypertension Inhibited sexual excitement Leukocytosis Lump of skin Lung cancer (03/2020) small cell lung CA, right sided mass, dx 03/2020 - stage IV w/ mets to liver, bone, nodes On home O2 2 LPM QHS; DAILY PRN Osteoarthritis Palliative care encounter Pleural effusion on right Chronic. PleurX catheter since 11/01/20 Pneumonia hospitalized 03/17/2020 [facility] Restrictive lung disease Tobacco use disorder Stopped 03/2020 Vertigo x 1 episode Surgical History History of cataract surgery (~2017) History of colonoscopy (~2014) History of knee surgery RT X 2, LT X 2 History of shoulder surgery (~2001) LEFT X 2 History of thoracentesis (03/20/20) tapped 03/20/2020 - rt pleural effusion Port-A-Cath in place (04/22/20) Insertion of Mediport Left Cephalic Vein Dr. Toro 04/22/20 Status post bronchoscopy with biopsy (03/19/20) Family History Mother , Passed age 84 of CHF Diabetes Heart disease Breast cancer, Onset Age: 78 Sister , Passed in early 40's of breast cancer No problems noted. Father , Passed age 53 of [place] Heart disease Myocardial infarction Hypertension Sister Breast cancer Sister Breast cancer Brother , Passed age 30 of MVA No problems noted. Brother , Passed age 56 of [place] No problems noted. Brother , Passed age 78 of "heart" Prostate cancer Daughter No problems noted. Son No problems noted. Son No problems noted. Other No family history of adverse response to anesthesia Denies family history of Ovarian cancer Colorectal cancer Social History Smoking Status: Current every day smoker Age Started Using Tobacco: 17; Age Quit Using Tobacco: 65; packs per day: 1; Cigarettes Per Day: 6; Second Hand Exposure: No; Do You Dip or Chew Tobacco: No; Hx Alcohol Use: No Hx Substance Use: No Preferred Language: Turkish Communication Ability: Impaired Visual Impairment: No Limitations Hearing Ability: Normal Associate Material Handler Required: No Beliefs That Will Affect Care: None marital status: Current Living Situation: Spouse current occupational status: retired 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 Other Information That Helps Us Care for You: No Feels Safe at Home: Yes Safety Concerns: Feels Safe At This Time Childhood Exposure to Second-Hand Smoke: Yes caffeine: No Dental Care, Regularly: No Assistive Devices: Denture - Upper, Denture - Lower, Glasses and Oxygen - Continuous Review of Systems Review of Systems: Trail System Assessment Scale Pain: 0/1 Tiredness: 2/3 Drowsiness: 1/3 Lack of Appetite: 1/3 Shortness of breath: 1/3 Palliative Performance Scale: 30% Physical Exam Constitutional: + ill appearing Neck: trachea midline, no thyromegaly Respiratory: Auscultation: + diminished lung sounds pleur-X Cardiovascular: Heart Sounds: normal S1 and normal S2 Gastrointestinal (Abdomen): normal bowel sounds, soft, nontender, no hepatosplenomegaly Skin: no rashes, warm and dry Psychiatric: Orientation: alert and oriented to person Insight: + limited insight Judgement: + limited judgement Results & Data ([facility]) Vital Signs (Past 12 Hours) Vital Signs Temp Pulse Pulse Resp BP BP Pulse Ox 01/05/21 12:04 36.9 C 71 18 182/95 H 98 01/05/21 12:02 36.9 C 71 16 182/95 H 98 01/05/21 11:45 68 18 159/97 H 100 01/05/21 11:02 67 17 162/98 H 100 01/05/21 09:41 63 24 184/79 H 100 01/05/21 09:00 64 14 189/97 H 99 01/05/21 08:52 72 17 181/95 H 98 01/05/21 08:10 68 19 159/86 H 97 01/05/21 07:55 95 01/05/21 07:10 36.6 C 70 20 163/93 H 97 PG Care Time/CCT Total # of Minutes Spent Total Time Spent with Patient: Total time spent is greater than 50% in coordination of care (as documented) at patient's floor/unit and/or counseling patient: Total time spent 70 minutes with > 50% of that time spent assessing the patient, discussing goals of care with the pt and collaborating with IDT Coding Level of Care Code 03409 Inpt Consult Level 3 Diagnoses Palliative care encounter Z51.5 Lung cancer C34.90 PTSD (post-traumatic stress disorder) F43.10 Confusion R41.0 Time Spent (min) 70
--- NOTE | 2021-01-05 14:21 | Electrocardiogram Report ---
Test Reason : Blood Pressure : / mmHG Vent. Rate : 070 BPM Atrial Rate : 070 BPM P-R Int : 200 ms QRS Dur : 148 ms QT Int : 434 ms P-R-T Axes : 067 -24 091 degrees QTc Int : 468 ms Normal sinus rhythm Right bundle branch block Anteroseptal infarct (cited on or before 17-MAR-2020) Abnormal ECG When compared with ECG of 01-NOV-2020 06:49, Questionable change in initial forces of Septal leads Confirmed by Spike Ordoñez ([id number]) on 01/05/2021 2:20:35 PM Referred By: REFERRED SELF Confirmed By:Spike Ordoñez
--- NOTE | 2021-01-05 16:46 | Consultation ---
Date of Consultation January 05, 2021 Assessment & Plan (1) Brain metastases: - generalized weakness and mental status change consistent with multiple brain metastases - on Decadron - obtain brain MRI - consult radiation oncology for brain irradiation - PT/OT eval & treat Present on Admission?: Yes (2) Extensive stage primary small cell carcinoma of [age]-year-old male with hx of extensive stage SCLC metastatic to liver and bone, currently on maintenance therapy with Atezolizumab - has responded reasonably well to immunotherapy so far - unfortunately now presents with brain metastases - agree with palliative care consult to define goals of care - followup as an outpatient at [facility] - thank you for the courtesy of this consultation. Feel free to contact if any questions Present on Admission?: Yes History of Present Illness Reason for Consultation: Hx of SCLC, new brain mets Attending Physician: Marshall Fields, DO History of Present Illness 65-year-old male with hx of extensive stage SCLC metastatic to liver and bone, currently on maintenance therapy with Atezolizumab who presents with increasing confusion and weakness for over 1 month. He is scheduled to have an MRI of his brain this week. His symptoms are worsening though and he presents with his for evaluation. CT head w/o contrast showed multiple brain metastasis with vasogenic edema. Decadron was started. Medical oncology was consulted for evaluation. Patient has not had increased cough or congestion. He wears 2 L of oxygen at all times. He has not had vomiting or diarrhea. His weakness is generalized, not one-sided. Patient is confused and unable to provide a meaningful history. Lab result and imaging study were reviewed. Oncologic History 1. Extensive Stage Small Cell Lung Cancer, Stage IV (Hepatic and Osseous Metastatic Disease), diagnosed 02/18/2020 Current Treatment: Maintenance Atezolizumab [id number], started 08/12/20 Prior Treatments: 1. Hospitalized March 17-2019 for chest pain/cough. Battled with a URI since . CXR showed compression of right hilum, right middle and lower lobe and right pleural effusion. 2. Underwent bronch with biopsies of regional lymph nodes; +small cell lung cancer. 3. PET scan 03/26/20 showed significant intrathoracic disease, positive mediastinal lymph nodes, bony and hepatic metastases. 4. Could not complete MRI of brain due to claustrophobia. 5. Started cycle 1 Carboplatin, Etoposide, Atezolizumab on 04/08/2020. 6. CT CAP 06/24/20 following 4 cycles of chemotherapy showed positive treatment response; plan to continue final remaining two cycles as scheduled. 7. Completed palliative RT to the pelvis, 3,000 cGy, on 08/27/20. 8. PET/CT 12/2 following 6 cycles of treatment showed near complete to complete resolution of right lung mass and scattered metastatic lesions; no new areas of FDG uptake to suggest metastatic disease. Moderate to large right pleural effusion, slightly increased in size. Skeletal disease findings were consistent with treated malignancy; FDG avid hepatic lesions had also resolved in the interval. 9. Completed chemotherapy course in ; Continues on maintenance Atezolizumab, started 08/12/20. 10. PET/CT /2 following 6 cycles of treatment showed near complete to complete resolution of right lung mass and scattered metastatic lesions; no new areas of FDG uptake to suggest metastatic disease. Moderate to large right pleural effusion, slightly increased in size. Skeletal disease findings were consistent with treated malignancy; FDG avid hepatic lesions had also resolved in the in terval. 11. Most recent CT CAP 12/11/20 showed no evidence of progressive disease; he does have small to moderate right effusion, trace left effusion, no residual pulmonary or mediastinal mass, subcentimeter hepatic lesions are unchanged and osteoblastic bone lesions are unchanged. Nodularity of left adrenal gland unchanged. Allergies Allergy/AdvReac Type Severity Reaction Status Date / Time guaifenesin Allergy Unknown SNEEZING Verified 01/05/21 07:57 Home Medications Medication Instructions Recorded Confirmed Type fentanyl 25 mcg/hr transdermal 1 patch TRANSDERMAL Q72H 08/07/20 01/05/21 History patch ondansetron HCl 4 mg tablet 4 mg PO Q8H PRN #90 tab 10/09/20 01/05/21 Rx albuterol sulfate 90 mcg/actuation 2 puff INH Q6H PRN #18 g 10/21/20 01/05/21 Rx aerosol inhaler tiotropium bromide 18 mcg capsule 1 cap INH DAILY #30 puffs 10/21/20 01/05/21 Rx with inhalation device levocetirizine 5 mg tablet 5 mg PO DAILY PRN #30 tab 12/11/20 01/05/21 Rx metoprolol succinate 25 mg 25 mg PO DAILY #30 tab 12/22/20 01/05/21 Rx tablet,extended release 24 hr acetaminophen [Tylenol Extra 1,000 mg PO DAILY PRN 01/05/21 01/05/21 History Strength] vitamin B complex [B Complex] 1 cap PO DAILY 01/05/21 01/05/21 History Patient History Medical History Back pain Colon polyps Confusion COPD (chronic obstructive pulmonary disease) Depression with anxiety Diverticulosis Dyslipidemia GERD (gastroesophageal reflux disease) Gout Hypertension Inhibited sexual excitement Leukocytosis Lump of skin Lung cancer (03/2020) small cell lung CA, right sided mass, dx 03/2020 - stage IV w/ mets to liver, bone, nodes On home O2 2 LPM QHS; DAILY PRN Osteoarthritis Palliative care encounter Pleural effusion on right Chronic. PleurX catheter since 11/01/20 Pneumonia hospitalized 03/17/2020 [facility] Restrictive lung disease Tobacco use disorder Stopped 03/2020 Vertigo x 1 episode Surgical History History of cataract surgery (~2017) History of colonoscopy (~2014) History of knee surgery RT X 2, LT X 2 History of shoulder surgery (~2001) LEFT X 2 History of thoracentesis (03/20/20) tapped 03/20/2020 - rt pleural effusion Port-A-Cath in place (04/22/20) Insertion of Mediport Left Cephalic Vein Dr. Toro 04/22/20 Status post bronchoscopy with biopsy (03/19/20) Family History Mother , Passed age 84 of CHF Diabetes Heart disease Breast cancer, Onset Age: 78 Sister , Passed in early 40's of breast cancer No problems noted. Father , Passed age 53 of SD Heart disease Myocardial infarction Hypertension Sister Breast cancer Sister Breast cancer Brother , Passed age 30 of MVA No problems noted. Brother , Passed age 56 of SD No problems noted. Brother , Passed age 78 of "heart" Prostate cancer Daughter No problems noted. Son No problems noted. Son No problems noted. Other No family history of adverse response to anesthesia Denies family history of Ovarian cancer Colorectal cancer Social History Smoking Status: Current every day smoker Age Started Using Tobacco: 17; Age Quit Using Tobacco: 65; packs per day: 1; Cigarettes Per Day: 6; Second Hand Exposure: No; Do You Dip or Chew Tobacco: No; Hx Alcohol Use: No Hx Substance Use: No Preferred Language: Albanian Communication Ability: Impaired Visual Impairment: No Limitations Hearing Ability: Normal Director Of Physical Education Required: No Beliefs That Will Affect Care: None marital status: Current Living Situation: Spouse current occupational status: retired 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 ENT: External examination was negative for masses. Neck: Negative for masses or palpable thyromegaly. Respiratory: DIMINISHED BREATH SOUNDS, PLEURX CATHETER Cardiovascular: Heart was RRR without significant murmur, gallops or rubs. Gastrointestinal: The abdomen was soft with normal bowel sounds. Lymphatic system: There was no palpable peripheral lymphadenopathy. Musculoskeletal System: The musculoskeletal system seemed concordant with age. Skin: The skin was negative for jaundice. Neurologic Exam: The exam was negative for any focal findings. Extremities: Negative for edema or erythema Results & Data ([facility]) Vital Signs (Past 12 Hours) Vital Signs Temp Pulse Pulse Resp BP BP Pulse Ox 01/05/21 12:04 36.9 C 71 18 182/95 H 98 01/05/21 12:02 36.9 C 71 16 182/95 H 98 01/05/21 11:45 68 18 159/97 H 100 01/05/21 11:02 67 17 162/98 H 100 01/05/21 09:41 63 24 184/79 H 100 01/05/21 09:00 64 14 189/97 H 99 01/05/21 08:52 72 17 181/95 H 98 01/05/21 08:10 68 19 159/86 H 97 01/05/21 07:55 95 01/05/21 07:10 36.6 C 70 20 163/93 H 97 Laboratory Results Laboratory Results - last 24 hr 01/05/21 01/05/21 01/05/21 07:58 07:58 07:58 WBC 6.33 RBC 4.31 L Hgb 13.4 L Hct 39.0 L MCV 90.5 MCH 31.1 MCHC 34.4 RDW Std Deviation 46.6 H RDW Coeff of Jean 14.0 Plt Count 142 MPV 8.3 Immature Gran % (Auto) 0.2 Neut % (Auto) 75.3 Lymph % (Auto) 14.2 [place] % (Auto) 8.7 Eos % (Auto) 1.1 Baso % (Auto) 0.5 Neut # (Auto) 4.77 Lymph # (Auto) 0.90 L [place] # (Auto) 0.55 Eos # (Auto) 0.07 Baso # (Auto) 0.03 Immature Gran # (Auto) 0.01 VBG pH VBG pCO2 VBG pO2 VBG HCO3 VBG O2 Saturation VBG Base Excess Barometric Pressure Sodium 142 Potassium 3.8 Chloride 107 Carbon Dioxide 28 Anion Gap 7.0 BUN 14 Creatinine 1.04 Est Cr Clr Drug Dosing Not Reportable Est GFR ( Amer) 85.7 Est GFR (Non-Af Amer) 73.9 BUN/Creatinine Ratio 13.3 Glucose 112 H Lactate 1.1 Calcium 9.0 Magnesium 2.0 Total Bilirubin 0.8 AST 17 ALT 31 Alkaline Phosphatase 44 L Ammonia Troponin I 0.015 Total Protein 6.5 Albumin 3.5 Globulin 3.0 Albumin/Globulin Ratio 1.2 TSH 0.605 Urine Color Urine Appearance Urine pH Ur Specific [place] Urine Protein Urine Glucose (UA) Urine Ketones Urine Blood Urine Nitrite Urine Bilirubin Urine Urobilinogen Ur Leukocyte Esterase 01/05/21 01/05/21 01/05/21 07:58 08:44 09:15 WBC RBC Hgb Hct MCV MCH MCHC RDW Std Deviation RDW Coeff of Jean Plt Count MPV Immature Gran % (Auto) Neut % (Auto) Lymph % (Auto) [place] % (Auto) Eos % (Auto) Baso % (Auto) Neut # (Auto) Lymph # (Auto) [place] # (Auto) Eos # (Auto) Baso # (Auto) Immature Gran # (Auto) VBG pH 7.36 VBG pCO2 52 H VBG pO2 34 VBG HCO3 29 VBG O2 Saturation 64.0 VBG Base Excess 2.7 Barometric Pressure 726.1 Sodium Potassium Chloride Carbon Dioxide Anion Gap BUN Creatinine Est Cr Clr Drug Dosing Est GFR ( Amer) Est GFR (Non-Af Amer) BUN/Creatinine Ratio Glucose Lactate Calcium Magnesium Total Bilirubin AST ALT Alkaline Phosphatase Ammonia 22.7 Troponin I Total Protein Albumin Globulin Albumin/Globulin Ratio TSH Urine Color Yellow Urine Appearance Clear Urine pH 7.5 Ur Specific [place] 1.015 Urine Protein Negative Urine Glucose (UA) Negative Urine Ketones Negative Urine Blood Negative Urine Nitrite Negative Urine Bilirubin Negative Urine Urobilinogen Negative Ur Leukocyte Esterase Negative Diagnostic Findings CT OF THE HEAD WITHOUT CONTRAST CLINICAL HISTORY: Confusion. FINDINGS: No acute intracranial hemorrhage is present. Note is made of multiple sites of vasogenic edema due to underlying parenchymal masses which are suboptimally assessed on this unenhanced exam. A left temporal lobe lesion measures approximately 4 cm. This has significant associated vasogenic edema with compression of the left lateral ventricle and 7 mm of rightward midline shift. There is sulcal effacement. Note is also made of vasogenic edema within the right parietal lobe and the left cerebellar hemisphere. The fourth ventricle is effaced due to the edema. There is no evidence for hydrocephalus at this time. Mass effect within the posterior fossa is noted with fullness at the level the foramen magnum. No calvarial lesions are identified. IMPRESSION: Multiple supratentorial and infratentorial intra-axial lesions consistent with metastatic disease. The largest is a left temporal lobe lesion with significant vasogenic edema which results in sulcal effacement, compression of the left lateral ventricle and 7 mm rightward midline shift. Left cerebellar lesion with effacement of the fourth ventricle and mass effect within the posterior fossa with fullness at the level of the foramen magnum. An MRI of the brain with and without contrast is recommended for further evaluation. XR chest 1V portable HISTORY: 65 years-old Male weakness acute weakness IMPRESSION: 1. Mildly increased size of the small right pleural effusion with progressed right lung base opacities. 2. Stable positioning of the right-sided chest tube. 3. No pneumothorax.
[2021-01-05] MEDS: dexAMETHasone 4 MG in SYRINGE 0 ML IV SCH (21:40)
[2021-01-05] MEDS: OLANZapine 5 MG TABLET PO PRN (21:51)
[2021-01-05] MEDS: ACETAMINOPHEN 325 MG TAB PO PRN (23:03)
[2021-01-06] MEDS: METOPROLOL SUCC 25MG EXT REL TAB PO SCH (08:26)
[2021-01-06] MEDS: OLANZapine 5 MG TABLET PO PRN (08:26)
[2021-01-06] MEDS: dexAMETHasone 4 MG in SYRINGE 0 ML IV SCH ×2 (08:27→09:27)
[2021-01-06] MEDS: UMECLIDINIUM BROMIDE 62.5MCG/BLISTER 7 PUFFS/INHALER INH SCH (08:27)
[2021-01-06] MEDS: ACETAMINOPHEN 325 MG TAB PO PRN (08:33)
[2021-01-06] MEDS ORDERED: LORazepam 0.5 MG TAB PO PRN (09:12)
[2021-01-06] MEDS: HEPARIN 100 UNIT/ML 5ML FLUSH FLUSH PRN ×3 (09:27→23:16)
[2021-01-06] MEDS ORDERED: HALOPERIDOL LACTATE 5 MG/ML 1 ML VIAL IM PRN (11:14)
[2021-01-06] MEDS: clonazePAM 1 MG TAB PO SCH ×2 (12:35→20:41)
--- NOTE | 2021-01-06 13:32 | Palliative Care Progress Note ---
Date of Service January 06, 2021 Assessment & Plan (1) Altered mental status: He requires 1:1 supervision and can be challenging to redirect at times due to brain mets. Will try routine clonazepam for restlessness. He is on decadron as well. (2) PTSD (post-traumatic stress disorder): Complicating his agitation. He is talking about "shootings" and people with guns. Will monitor on clonazepam. Could consider SSRI as well but he requires extensive coaching to take medications. (3) Palliative care encounter: Discussed with case management with plan for home with hospice. We also met with is , Chely, at bedside to discuss plan and support from home. She feels that she will be able to manage his care at home. We discussed additional support and having a family member or friend to have planned shifts to provide relief for her. We discussed hospice support at home but it will likely be challenging at home with his brain mets. (4) Lung cancer: (5) Brain metastases: Admission and Anticipated Discharge Date Admission Date: January 05, 2021 Subjective Very restless, wandering around room. He is generally easy to redirect. Not much effect from zyprexa. He denies pain. Appetite is good. Review of Systems Review of Systems: [place] Symptom Assessment Scale Pain0/3 Anxiety 2/3 Dyspnea 0/3 Physical Exam Constitutional: + disheveled restless ENMT: Mouth: oral mucous membranes not dry Respiratory: normal respiratory effort; no labored breathing Cardiovascular: Extremities: no edema Gastrointestinal (Abdomen): Inspection/Auscultation: abdomen not distended Neurologic: no focal motor deficits Speech / Cognition: + abnormal speech (word salad) ambulatory with steady gait Results & Data ([facility]) Vital Signs (Past 12 Hours) Vital Signs Temp Pulse Resp BP Pulse Ox 01/06/21 07:13 97.9 F 84 16 175/92 H 99 PG Care Time/CCT Total # of Minutes Spent Total Time Spent with Patient: Total time spent is greater than 50% in coordination of care (as documented) at patient's floor/unit and/or counseling patient: total time spent 70 minutes with more than 50% of time spent on family education and support, symptom management, and coordination of care. Coding Level of Care Code 33370 Subseq Hosp Care Lvl 3 Diagnoses Altered mental status R41.0 Altered mental status type: disorientation PTSD (post-traumatic stress disorder) F43.10 Palliative care encounter Z51.5 Lung cancer C34.90 Brain metastases C79.31 Time Spent (min) 70 (1) Altered mental status Altered mental status type: disorientation Qualified Code(s): R41.0 - Disorientation, unspecified
--- NOTE | 2021-01-06 16:12 | Hospitalist Progress Note ---
Date of Service January 06, 2021 Assessment & Plan (1) Lung cancer: stage IV SCLC with known mets to the liver and bones now with changes in mental status and CT head shows numerous brain mets with cerebral edema continue Decadron 4mg IV q12 plan for home hospice, he is DNR, comfort care major issue for him is restlessness, agitation, delusions, has history of PTSD Klonopin and Zyprexa scheduled use Ativan, Haldol PRN for agitation, try to get him to sleep trying to find a regimen that will keep him calm, will change the dexamethasone to 6mg IV in the morning only to try to limit night time stimulation (2) Confusion: due to brain mets start on Decadron to treat swelling give Klonopin 1mg q8 scheduled, Zyprexa Ativan PRN (3) Brain metastases: new finding, very numerous with brain edema no plans for radiation therapy, no need for MRI brain Decadron 6mg IV qAM (4) Brain edema: Decadron (5) Pleural effusion on right: managed with PleurX, ordered it drained at time of admission, typically drained once a week (6) CKD (chronic kidney disease) stage 3, GFR 30-59 ml/min: Cr is stable (7) COPD (chronic obstructive pulmonary disease): stable on baseline 2L NC Admission and Anticipated Discharge Date Admission Date: January 05, 2021 Subjective patient very restless and agitated, had a long night and cannot sleep at all right now keeps calling out about "shootings" he will reach out like he sees things visited with his at the bedside, discussed logistics of taking him home trying to find a scheduled medication regimen that will help keep him calm she says he is eating great, eating more than he was at home, might be a side effect from dexamethasone discussed with Dr. Schroeder, will add Klonopin scheduled to try to calm him, continue Zyprexa told RN to give him a dose of Ativan to try to help him sleep for a while, he needs rest Review of Systems Review of Systems: Unobtainable due to cognitive status (very confused) Physical Exam Constitutional: WD/WN, vitals as above + altered mental status (confused); no acute distress Neck: trachea midline, no thyromegaly Respiratory: normal respiratory effort; no respiratory distress, no cough and not tachypneic Auscultation: lungs clear to auscultation bilaterally and + diminished lung sounds (right base) Cardiovascular: RRR, no murmur, no edema Gastrointestinal (Abdomen): normal bowel sounds, soft, nontender, no hepatosplenomegaly Musculoskeletal: no cyanosis or clubbing, extremities motor strength 5/5 Skin: no rashes, warm and dry Neurologic: normal touch/pain/proprioception, CN's II-XI intact bilaterally, awake and + confused; no focal motor deficits Psychiatric: Orientation: + guarded; + not oriented to person, + not oriented to place and + not oriented to time Lymphatic: no cervical or axillary lymphadenopathy Results & Data Results & Data ([facility]) Vital Signs (Past 12 Hours) Vital Signs Temp Pulse Resp BP BP Pulse Ox 01/06/21 14:39 36.7 C 76 16 152/79 H 93 01/06/21 07:13 36.6 C 84 16 175/92 H 99 Medications Administered Current Inpatient Medications Acetaminophen (Acetaminophen 325 Mg Tab) 650 mg PO Q4H PRN PRN Reason: pain/fever Stop: 02/04/21 11:59 Last Admin: 01/06/21 08:33 Dose: 650 mg Documented by: Clonazepam (Clonazepam 1 Mg Tab) 1 mg PO Q8 JOVANNI Stop: 02/05/21 12:14 Last Admin: 01/06/21 12:35 Dose: 1 mg Documented by: Haloperidol Lactate (Haloperidol Lactate 5 Mg/Ml 1 Ml Vial) 5 mg IM Q6H PRN PRN Reason: Anxiety/Agitation Stop: 02/05/21 11:13 Heparin Sodium (Porcine) (Heparin 100 Unit/Ml 5ml Flush) 5 ml FLUSH PRN PRN PRN Reason: Flush Stop: 02/05/21 01:27 Last Admin: 01/06/21 09:27 Dose: 5 ml Documented by: Dexamethasone 4 mg/ Syringe 1 mls @ 1 mls/min IV Q12 JOVANNI Stop: 02/04/21 20:59 Last Admin: 01/06/21 09:27 Dose: 1 mls/min Documented by: Lorazepam (Ativan) 1 mg in 2 mls @ 2 mls/min IV Q4H PRN PRN Reason: Agitation Stop: 02/05/21 11:13 Metoprolol Succinate (Metoprolol Succ 25mg Ext Rel Tab) 25 mg PO DAILY JOVANNI Stop: 02/05/21 08:59 Last Admin: 01/06/21 08:26 Dose: 25 mg Documented by: Olanzapine (Olanzapine 5 Mg Tablet) 5 mg PO Q6H PRN PRN Reason: Agitation Stop: 02/04/21 19:57 Last Admin: 01/06/21 08:26 Dose: 5 mg Documented by: Ondansetron HCl (Ondansetron Inj 2 Mg/Ml 2 Ml Vial) 4 mg IV Q6H PRN PRN Reason: Nausea Stop: 02/04/21 11:59 Umeclidinium [place] (Umeclidinium [place] 62.5mcg/Blister 7 Puffs/Inhaler) 1 puffs INH DAILY JOVANNI Stop: 02/05/21 08:59 Last Admin: 01/06/21 08:27 Dose: 1 puffs Documented by: PG Care Time/CCT Total # of Minutes Spent Total Time Spent with Patient: Total time spent is greater than 50% in coordination of care (as documented) at patient's floor/unit and/or counseling patient: Coding Level of Care Code 08318 Subseq Hosp Care Lvl 3 Diagnoses Lung cancer C34.90 Confusion R41.0 Brain metastases C79.31 Brain edema G93.6 Pleural effusion on right J90 CKD (chronic kidney disease) stage 3, GFR 30-59 ml/min N18.30 COPD (chronic obstructive pulmonary disease) J44.9
[2021-01-06] MEDS: LORazepam 1 MG/2 ML VIAL IV PRN ×2 (16:30→23:11)
[2021-01-06 22:45] VITALS: TEMP 98.8
[2021-01-07] MEDS ORDERED: fentaNYL citrate 100 MCG/2 ML VIAL IV STA (02:42)
[2021-01-07] MEDS ORDERED: MoRPHine SULFATE 4 MG/ML 1 ML CARP\\VIAL IV STA (02:50)
[2021-01-07] MEDS: HEPARIN 100 UNIT/ML 5ML FLUSH FLUSH PRN ×2 (03:00→15:34)
[2021-01-07] MEDS ORDERED: dexAMETHasone 6 MG in SYRINGE 0 ML IV SCH (09:00)
[2021-01-07 09:14] VITALS: PULSE 74; O2SAT 98
[2021-01-07] MEDS: clonazePAM 1 MG TAB PO SCH ×2 (09:14→15:19)
[2021-01-07] MEDS: UMECLIDINIUM BROMIDE 62.5MCG/BLISTER 7 PUFFS/INHALER INH SCH (09:15)
[2021-01-07] MEDS: METOPROLOL SUCC 25MG EXT REL TAB PO SCH (09:15)
[2021-01-07] MEDS ORDERED: fentaNYL 25 MCG/HR TDSY TD SCH (10:30)
--- NOTE | 2021-01-07 11:55 | Palliative Care Progress Note ---
Date of Service January 07, 2021 Assessment & Plan (1) PTSD (post-traumatic stress disorder): He is reliving his experiences in [place]. He talks about "the ones who didn't survive" and "I didn't want to tell his family that he was gone". He is anxious and pacing, alternating with tired and tearful. I sat at bedside with him for 40minutes and offered support and reassurance. Continue clonazepam for restlessness and anxiety. (2) Altered mental status: Related to brain mets. On decadron which has been adjusted to daily in am by Dr. Fields. (3) Brain metastases: (4) Palliative care encounter: Anticipate home with hospice care. Discussed with Dr. Fields and case management. Would continue clonazepam with hs zyprexa. Continue morphine prn. He will restart fentanyl patch for pain. I have encouraged his to take advantage of support offered by family and friends. She will need respites with his care. (5) Lung cancer: Admission and Anticipated Discharge Date Admission Date: January 05, 2021 Subjective Still confused with rambling speech. Did sleep for several hours last night after dose of morphine. He denies pain. Review of Systems Review of Systems: Unobtainable due to cognitive status Palliative Performance Score 60% Physical Exam Constitutional: restless, confused Respiratory: normal respiratory effort; no labored breathing Cardiovascular: Extremities: no edema Gastrointestinal (Abdomen): Inspection/Auscultation: abdomen not distended Musculoskeletal: Extremities: no muscle atrophy Gait: normal gait Skin: warm and dry Neurologic: + confused Speech / Cognition: + abnormal speech Results & Data ([facility]) Vital Signs (Past 12 Hours) Vital Signs Temp Pulse Resp BP Pulse Ox 01/07/21 09:11 98.8 F 74 18 156/82 H 98 01/07/21 02:15 162/74 H PG Care Time/CCT Total # of Minutes Spent Total Time Spent with Patient: Total time spent is greater than 50% in coordination of care (as documented) at patient's floor/unit and/or counseling patient: total time spent 45 minutes with more than 50% of time spent on support, symptom management and coordination of care Coding Level of Care Code 31776 Subseq Hosp Care Lvl 3 Diagnoses PTSD (post-traumatic stress disorder) F43.10 Altered mental status R41.0 Altered mental status type: disorientation Brain metastases C79.31 Palliative care encounter Z51.5 Lung cancer C34.90 (1) Altered mental status Altered mental status type: disorientation Qualified Code(s): R41.0 - Disorientation, unspecified
[2021-01-07 12:49] VITALS: BP 180/117
[2021-01-07] MEDS ORDERED: CHECK fentaNYL PATCH PLACEMENT SCH (16:00)
--- NOTE | 2021-01-11 07:35 | Discharge Summary ---
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 Most recent notes from oncology note that his disease has been stable, CT scans have shown no progression in disease and he has been eating well, maintaining weight. He has a right PleurX in place for metastatic pleural effusion, he drains this once a week now, gets about 300mL out each time. His noted the confusion started a few weeks ago and has progressed. There were plans for an MRI of the brain this week to evaluate for brain mets but she could not keep him at home any longer the confusion and behavior got so bad. Vitals in the ED were stable, he was on his 2L of oxygen that he always wears. Labs were normal. CT head showed numerous brain mets with cerebral edema. He was given Dexamethasone 10mg IV and admission requested. Discussed the new diagnosis with his at the bedside at the time of admission, she was very tearful. She said that they had never discussed code status or living will. She and the patient had been cautiously optimistic that he was going to live for a while based on his recent scans. She was devastated by the news. She agrees to consultation with palliative care after I explained that there is no cure, can try dexamethasone for symptoms. Principal Diagnosis Small cell lung cancer with new finding of diffuse brain metastases Discharge Exam Constitutional WD/WN, vitals as above + altered mental status (confused); no acute distress Eyes PERRL, conjunctivae normal, anicteric sclerae ENMT external ear and nose normal, oropharynx normal Neck trachea midline, no thyromegaly Respiratory normal respiratory effort; no respiratory distress, no cough and not tachypneic Auscultation: lungs clear to auscultation bilaterally and + diminished lung sounds (right base) Cardiovascular RRR, no murmur, no edema Gastrointestinal (Abdomen) normal bowel sounds, soft, nontender, no hepatosplenomegaly Musculoskeletal no cyanosis or clubbing, extremities motor strength 5/5 Skin no rashes, warm and dry Neurologic normal touch/pain/proprioception, CN's II-XI intact bilaterally, awake and + confused; no focal motor deficits Psychiatric Orientation: alert, oriented to person, oriented to place and cooperative; + not oriented to time Lymphatic no cervical or axillary lymphadenopathy Discharge Data Allergies Allergy/AdvReac Type Severity Reaction Status Date / Time guaifenesin Allergy Unknown SNEEZING Verified 01/05/21 07:57 Consultations 01/05/21 09:30 ED Decision to Admit Stat 01/05/21 12:00 Consult Case Management - Discharge Planning Routine Consult Oncology Routine Consult Palliative Care Routine Procedures Performed Operation Date: 01/08/21 08:30 <No data on this case meets the specified criteria> Ordered Studies 01/05/21 07:47 CT head/brain wo con Stat Hospital Course (1) Lung cancer: stage IV SCLC with known mets to the liver and bones now with changes in mental status and CT head shows numerous brain mets with cerebral edema continue Decadron 4mg PO qAM plan for home hospice, he is DNR, comfort care major issue for him is restlessness, agitation, delusions, has history of PTSD Klonopin and Zyprexa scheduled use Ativan, Haldol PRN for agitation, try to get him to sleep had a great response to Morphine IV on 01/08, could have had some withdrawal from removing Fentanyl patch resumed Fentanyl patch, much calmer now d/c to home on Fentanyl patch, Klonopin 1mg q8, Zyprexa 5mg HS PRN for sleep will follow up with PCP, oncology, hospice lives with his , she will get help from children to give her some relief (2) Confusion: due to brain mets start on Decadron to treat swelling give Klonopin 1mg q8 scheduled, Zyprexa Ativan PRN (3) Brain metastases: new finding, very numerous with brain edema no plans for radiation therapy, no need for MRI brain Decadron 6mg IV qAM while here, change to 4mg PO qAM avoiding PM dosing because it causes him restlessness and insomnia (4) Brain edema: Decadron (5) Pleural effusion on right: managed with PleurX, ordered it drained at time of admission, typically drained once a week (6) CKD (chronic kidney disease) stage 3, GFR 30-59 ml/min: Cr is stable (7) COPD (chronic obstructive pulmonary disease): stable on baseline 2L NC Total Time Total Time Spent Total Time Spent (In Minutes): 32 minutes Total Time Includes: Examination of the Patient, Discharge Planning, Medication Reconciliation, Communication With Other Providers (Dr. Schroeder, palliative care) and Other (visited with his in the room, 12 minutes) Discharge Plan Discharge Items Patient Disposition: Hospice - Home Reason For Visit: BRAIN METS,CONFUSION Discharge Diagnosis: Small cell lung cancer with brain metastases Confusion, agitation Condition on Discharge: Fair Goals: comfort care at home Activity: Resume your previous activity Driving/Machine Use: no driving Weightbearing: Full weightbearing Non-emergency contact: Primary Care Provider Call non-emergency contact if: you have any medication questions and your symptoms worsen Follow-up/Referrals: Abdulaziz Alexander III, MD [Primary Care Provider] - (Patient is going home with Hospice.) Diet: Regular Addtl Attending Provider Instructions: Medications: - DEXAMETHASONE: 4mg every morning, this is to reduce swelling in brain from metastases - CLONAZEPAM: 1mg every 8 hours to help keep patient calm - ZYPREXA: 5mg every evening to help patient sleep continue with Fentanyl patch and all other prior medications, continue to drain PleurX once a week Small cell lung cancer with brain metastases discharge to home with hospice services, aim to control symptoms use the regimen described above follow up with home hospice services Pending Studies at Discharge: No Stand-Alone Forms: My [facility] Medications and DC Order Prescriptions: New olanzapine 5 mg Tablet 5 mg PO HS 30 Days Qty: 30 RF: 0 clonazepam 1 mg Tablet 1 mg PO Q8 30 Days Qty: 90 RF: 0 dexamethasone 4 mg tablet 4 mg PO DAILY Qty: 30 RF: 1 Continued fentanyl 25 mcg/hr patch 72 hour 1 patch transdermal Q72H RF: 0 ondansetron HCl [Zofran] 4 mg tablet 4 mg PO Q8H PRN (Reason: nausea and vomiting) Qty: 90 RF: 0 levocetirizine 5 mg tablet 5 mg PO DAILY PRN (Reason: allergy symptoms) Qty: 30 RF: 1 metoprolol succinate 25 mg tablet extended release 24 hr 25 mg PO DAILY Qty: 30 RF: 2 Spiriva with HandiHaler 18 mcg capsule, w/inhalation device 1 cap INH DAILY Qty: 30 RF: 5 albuterol sulfate [Proventil HFA] 90 mcg/actuation HFA aerosol inhaler 2 puff INH Q6H PRN (Reason: Shortness Of Breath Or Wheezing) Qty: 18 RF: 2 vitamin B complex Capsule 1 cap PO DAILY RF: 0 acetaminophen 500 mg Capsule 1,000 mg PO DAILY PRN (Reason: Pain) RF: 0 Discharge Orders: Discharge Order (Routine); Ordered 01/07/21 Ordered By: Marshall Larsen/Other Patient Handouts: For Caregivers: Coping Tips, Brain Tumors: Emotional Issues Admission Data Admit Date/Time: 01/05/21 10:05 Attending Provider: Marshall Fields Admit Provider: Marshall Fields Primary Care Provider: Abdulaziz Alexander III Other Providers: Marshall Fields ; Roland Schwartz V. ; Romy Mayo ; Ayaka Schroeder ; [facility] Other Interventions: Discharge Summary Assessment (RN) Last Done: 01/07/21 12:47 Coding Level of Care Code D/C Day Management >30 mins Diagnoses Lung cancer C34.90 Confusion R41.0 Brain metastases C79.31 Brain edema G93.6 Pleural effusion on right J90 CKD (chronic kidney disease) stage 3, GFR 30-59 ml/min N18.30 COPD (chronic obstructive pulmonary disease) J44.9
== END 2021-01-07 15:55 | disposition hospice, home (50) ==
LOC: ED 07:05 → 3E 10:05

== ENCOUNTER 2021-01-25 07:08 | Observation (INO) ==
[2021-01-25] MEDS ORDERED: CEFEPIME 2,000 MG/20 ML VIAL IV STA (07:21)
--- NOTE | 2021-01-25 07:29 | Emergency Department Note ---
History of Present Illness General Chief complaint: Altered Mental Status Time Seen by Provider: 01/25/21 07:09 Source: patient, EMS and RN notes reviewed Mode of arrival: EMS Limitations: altered mental status History of Present Illness Provider complaint: Altered mental status This is a 65-year-old male who presents to the ED by EMS. They were called to the residence because the patient seemed to be having garbled speech and leaning to the right. The patient was found to have a fever of 101 by EMS. He has h istory of metastatic lung cancer with brain mets. He was last known well around 2 AM when he got up to go to the bathroom. He received Tylenol 1 g orally this morning. No additional information at this point. The patient does respond to some verbal stimuli with basic answers and does not have any specific complaints. He seems to be somewhat confused. Home Medications Medication Instructions Recorded Confirmed Type fentanyl 25 mcg/hr transdermal 1 patch TRANSDERMAL Q72H 08/07/20 01/25/21 History patch ondansetron HCl 4 mg tablet 4 mg PO Q8H PRN #90 tab 10/09/20 01/25/21 Rx albuterol sulfate 90 mcg/actuation 2 puff INH Q6H PRN #18 g 10/21/20 01/25/21 Rx aerosol inhaler acetaminophen [Mapap 1,000 mg PO DAILY PRN 01/05/21 01/25/21 History (acetaminophen)] vitamin B complex [Super B-50 1 cap PO QAM 01/05/21 01/25/21 History Complex] clonazepam [Klonopin] 1 mg PO Q8 01/25/21 01/25/21 History dexamethasone [Decadron] 4 mg PO QAM 01/25/21 01/25/21 History lorazepam 1 mg PO DAILY PRN 01/25/21 01/25/21 History olanzapine [Zyprexa] 5 mg PO HS 01/25/21 01/25/21 History oxycodone 10 mg PO Q4H PRN 01/25/21 01/25/21 History Allergies Allergy/AdvReac Type Severity Reaction Status Date / Time guaifenesin Allergy Unknown SNEEZING Verified 01/25/21 07:50 Past Med/Surg History Medical History Altered mental status Back pain Colon polyps Confusion COPD (chronic obstructive pulmonary disease) Depression with anxiety Diverticulosis Dyslipidemia GERD (gastroesophageal reflux disease) Gout Hypertension Inhibited sexual excitement Leukocytosis Lump of skin Lung cancer (03/2020) small cell lung CA, right sided mass, dx 03/2020 - stage IV w/ mets to liver, bone, nodes On home O2 2 LPM QHS; DAILY PRN Osteoarthritis Pleural effusion on right Chronic. PleurX catheter since 11/01/20 Pneumonia hospitalized 03/17/2020 [facility] Restrictive lung disease Tobacco use disorder Stopped 03/2020 Vertigo x 1 episode Surgical History History of cataract surgery (~2017) History of colonoscopy (~2014) History of knee surgery RT X 2, LT X 2 History of shoulder surgery (~2001) LEFT X 2 History of thoracentesis (03/20/20) tapped 03/20/2020 - rt pleural effusion Port-A-Cath in place (04/22/20) Insertion of Mediport Left Cephalic Vein Dr. Toro 04/22/20 Status post bronchoscopy with biopsy (03/19/20) Family History Mother , Passed age 84 of CHF Diabetes Heart disease Breast cancer, Onset Age: 78 Sister , Passed in early 40's of breast cancer No problems noted. Father , Passed age 53 of [place] Heart disease Myocardial infarction Hypertension Sister Breast cancer Sister Breast cancer Brother , Passed age 30 of MVA No problems noted. Brother , Passed age 56 of [place] No problems noted. Brother , Passed age 78 of "heart" Prostate cancer Daughter No problems noted. Son No problems noted. Son No problems noted. Other No family history of adverse response to anesthesia Denies family history of Ovarian cancer Colorectal cancer Social History Smoking Status: Former smoker Age Started Using Tobacco: 17; Age Quit Using Tobacco: 65; packs per day: 1; Cigarettes Per Day: 6; Second Hand Exposure: No; Hx Alcohol Use: No Hx Substance Use: No Preferred Language: Bulgarian Communication Ability: Impaired Visual Impairment: No Limitations Hearing Ability: Normal Inventory Auditor Required: No Beliefs That Will Affect Care: None marital status: Current Living Situation: Spouse current occupational status: retired 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 Safe at Home: Yes Childhood Exposure to Second-Hand Smoke: Yes caffeine: No Dental Care, Regularly: No Assistive Devices: None Review of Systems A total of 10 systems reviewed and were otherwise negative Physical Exam Vital Signs Vital Signs - 24 hr 01/25/21 07:13 01/25/21 07:51 Temperature 37 C Temperature Source Oral Pulse Rate 75 Pulse Rhythm Regular Pulse Strength Normal Respiratory Rate 18 Respiratory Effort / Characteristics Non-Labored Spontaneous Respiratory Depth Normal Respiratory Pattern Regular Blood Pressure 188/89 H Blood Pressure Mean 122 Blood Pressure Position Sitting Pulse Oximetry 95 Oxygen Delivery Method Room Air Room Air Sepsis Recent Fever Within 48 Hours Yes Sepsis New/Unexplained Change in Mental Status Yes Sepsis Action Taken by Nursing No Action Required CONSTITUTIONAL/VITAL SIGNS: Reviewed / noted above. GENERAL: Non-toxic in appearance. No distress. INTEGUMENTARY: Warm, dry, and [place]. HEAD: Normocephalic. EYES: without scleral icterus or trauma. ENT/OROPHARYNX: clear and moist. LYMPHADENOPATHY/NECK: Is supple without lymphadenopathy or meningismus. RESPIRATORY: Lungs clear and equal. CARDIOVASCULAR: Regular rate and rhythm. GI/ABDOMEN: Soft and nontender. No organomegaly or pulsatile mass. No rebound or guarding. Normal bowel sounds. There is a drain in the right upper abdomen. No surrounding erythema. EXTREMITIES: Warm and well perfused. BACK: No CVA tenderness. NEUROLOGICAL: The patient does follow basic commands. He seems to be slightly confused. He seems very weak and lethargic. The only focal weakness recognizes some right leg weakness compared to the left. No other focal weakness on exam. PSYCHIATRIC: normal affect. MUSCULOSKELETAL: Normally developed with good muscle tone. TRIAGE NURSING DOCUMENTATION REVIEWED. Course Administered Medications Discontinued Medications Cefepime HCl (Maxipime) 2,000 mg in 20 mls @ 5 mls/min IV NOW STA; Protocol Stop: 01/25/21 07:24 Last Admin: 01/25/21 07:55 Dose: 5 mls/min Documented by: [id number] Medical Decision Making Differential Diagnosis Differential includes acute coronary syndrome, myocardial infarction, CVA, TIA, anemia, infection, pneumonia, UTI, pyelonephritis, poor nutrition, dehydration, electrolyte disturbance,hypoglycemia. Medical Records Attestation: I reviewed the patient's medical records. Home Medications Current Medication List: was personally reviewed by me Laboratory Data Attestation: I reviewed the patient's lab results. Result diagrams: 01/25/21 07:28 01/25/21 07:28 Lab Results 01/25/21 01/25/21 01/25/21 Range/Units 07:28 07:28 07:28 WBC 8.57 (4.8-10.8) K/uL RBC 4.42 L (4.7-6.1) M/uL Hgb 13.7 L (14.0-18.0) g/dL Hct 40.7 L (42-52) % MCV 92.1 (80-100) fL MCH 31.0 (25-34) pg MCHC 33.7 (32-36) g/dL RDW Std Deviation 52.0 H (36.4-46.3) fL RDW Coeff of Jean 15.4 H (11.5-14.5) % Plt Count 105 L (130-400) K/uL MPV 7.9 (7.4-10.4) fL Immature Gran % (Auto) 0.8 % Neut % (Auto) 84.0 % Lymph % (Auto) 5.6 % Pine % (Auto) 9.0 % Eos % (Auto) 0.5 % Baso % (Auto) 0.1 % Neut # (Auto) 7.20 H (1.4-6.5) K/uL Lymph # (Auto) 0.48 L (1.2-3.4) K/uL Pine # (Auto) 0.77 H (0.11-0.59) K/uL Eos # (Auto) 0.04 (0-0.5) K/uL Baso # (Auto) 0.01 (0-0.2) K/uL Immature Gran # (Auto) 0.07 H (0.00-0.02) K/uL PT 10.1 (9.0-12.0) Seconds INR 1.0 (0.9-1.1) APTT 25.4 (21.0-31.0) Seconds PTT Ratio 1.0 Sodium 138 (136-145) mmol/L Potassium 3.8 (3.5-5.1) mmol/L Chloride 105 (98-107) mmol/L Carbon Dioxide 27 (21-32) mmol/L Anion Gap 6.0 (3-11) BUN 20 H (7-18) mg/dl Creatinine 1.05 (0.6-1.4) mg/dl Est Cr Clr Drug Dosing 80.1 ml/min Est GFR ( Amer) 84.7 Est GFR (Non-Af Amer) 73.1 BUN/Creatinine Ratio 19.0 (10-20) Glucose 129 H (70-99) mg/dl Lactate (0.4-2.0) mmol/L Calcium 8.6 (8.5-10.1) mg/dl Magnesium 1.8 (1.8-2.4) mg/dl Total Bilirubin 1.0 (0.2-1) mg/dl AST 21 (15-37) U/L ALT 38 (12-78) U/L Alkaline Phosphatase 59 (45-117) U/L Troponin I 0.098 H* (0-0.045) ng/ml Total Protein 6.6 (6.4-8.2) gm/dl Albumin 3.4 (3.4-5.0) gm/dl Globulin 3.2 (2.5-4.0) gm/dl Albumin/Globulin Ratio 1.1 (0.9-2) Urine Color Urine Appearance (Clear) Urine pH (4.5-7.5) Ur Specific [place] (1.000-1.030) Urine Protein (Negative) Urine Glucose (UA) (Negative) Urine Ketones (Negative) Urine Blood (Negative) Urine Nitrite (Negative) Urine Bilirubin (Negative) Urine Urobilinogen (Negative) Ur Leukocyte Esterase (Negative) COVID-19 Eval Order SARS-CoV-2, RNA, NAAT (NEGATIVE) 01/25/21 01/25/21 01/25/21 Range/Units 07:28 07:55 07:55 WBC (4.8-10.8) K/uL RBC (4.7-6.1) M/uL Hgb (14.0-18.0) g/dL Hct (42-52) % MCV (80-100) fL MCH (25-34) pg MCHC (32-36) g/dL RDW Std Deviation (36.4-46.3) fL RDW Coeff of Jean (11.5-14.5) % Plt Count (130-400) K/uL MPV (7.4-10.4) fL Immature Gran % (Auto) % Neut % (Auto) % Lymph % (Auto) % Pine % (Auto) % Eos % (Auto) % Baso % (Auto) % Neut # (Auto) (1.4-6.5) K/uL Lymph # (Auto) (1.2-3.4) K/uL Pine # (Auto) (0.11-0.59) K/uL Eos # (Auto) (0-0.5) K/uL Baso # (Auto) (0-0.2) K/uL Immature Gran # (Auto) (0.00-0.02) K/uL PT (9.0-12.0) Seconds INR (0.9-1.1) APTT (21.0-31.0) Seconds PTT Ratio Sodium (136-145) mmol/L Potassium (3.5-5.1) mmol/L Chloride (98-107) mmol/L Carbon Dioxide (21-32) mmol/L Anion Gap (3-11) BUN (7-18) mg/dl Creatinine (0.6-1.4) mg/dl Est Cr Clr Drug Dosing ml/min Est GFR ( Amer) Est GFR (Non-Af Amer) BUN/Creatinine Ratio (10-20) Glucose (70-99) mg/dl Lactate 1.9 (0.4-2.0) mmol/L Calcium (8.5-10.1) mg/dl Magnesium (1.8-2.4) mg/dl Total Bilirubin (0.2-1) mg/dl AST (15-37) U/L ALT (12-78) U/L Alkaline Phosphatase (45-117) U/L Troponin I (0-0.045) ng/ml Total Protein (6.4-8.2) gm/dl Albumin (3.4-5.0) gm/dl Globulin (2.5-4.0) gm/dl Albumin/Globulin Ratio (0.9-2) Urine Color Urine Appearance (Clear) Urine pH (4.5-7.5) Ur Specific [place] (1.000-1.030) Urine Protein (Negative) Urine Glucose (UA) (Negative) Urine Ketones (Negative) Urine Blood (Negative) Urine Nitrite (Negative) Urine Bilirubin (Negative) Urine Urobilinogen (Negative) Ur Leukocyte Esterase (Negative) COVID[facility]19 [facility] SARS-[facility]-2, RNA, NAAT NEGATIVE (NEGATIVE) 01/25/21 Range/Units 08:15 WBC (4.8-10.8) K/uL RBC (4.7-6.1) M/uL Hgb (14.0-18.0) g/dL Hct (42-52) % MCV (80-100) fL MCH (25-34) pg MCHC (32-36) g/dL RDW Std Deviation (36.4-46.3) fL RDW Coeff of Jean (11.5-14.5) % Plt Count (130-400) K/uL MPV (7.4-10.4) fL Immature Gran % (Auto) % Neut % (Auto) % Lymph % (Auto) % Pine % (Auto) % Eos % (Auto) % Baso % (Auto) % Neut # (Auto) (1.4-6.5) K/uL Lymph # (Auto) (1.2-3.4) K/uL Pine # (Auto) (0.11-0.59) K/uL Eos # (Auto) (0-0.5) K/uL Baso # (Auto) (0-0.2) K/uL Immature Gran # (Auto) (0.00-0.02) K/uL PT (9.0-12.0) Seconds INR (0.9-1.1) APTT (21.0-31.0) Seconds PTT Ratio Sodium (136-145) mmol/L Potassium (3.5-5.1) mmol/L Chloride (98-107) mmol/L Carbon Dioxide (21-32) mmol/L Anion Gap (3-11) BUN (7-18) mg/dl Creatinine (0.6-1.4) mg/dl Est Cr Clr Drug Dosing ml/min Est GFR ( Amer) Est GFR (Non-Af Amer) BUN/Creatinine Ratio (10-20) Glucose (70-99) mg/dl Lactate (0.4-2.0) mmol/L Calcium (8.5-10.1) mg/dl Magnesium (1.8-2.4) mg/dl Total Bilirubin (0.2-1) mg/dl AST (15-37) U/L ALT (12-78) U/L Alkaline Phosphatase (45-117) U/L Troponin I (0-0.045) ng/ml Total Protein (6.4-8.2) gm/dl Albumin (3.4-5.0) gm/dl Globulin (2.5-4.0) gm/dl Albumin/Globulin Ratio (0.9-2) Urine Color Yellow Urine Appearance Clear (Clear) Urine pH 7.0 (4.5-7.5) Ur Specific [place] 1.017 (1.000-1.030) Urine Protein Negative (Negative) Urine Glucose (UA) Negative (Negative) Urine Ketones Negative (Negative) Urine Blood Negative (Negative) Urine Nitrite Negative (Negative) Urine Bilirubin Negative (Negative) Urine Urobilinogen Negative (Negative) Ur Leukocyte Esterase Negative (Negative) COVID-19 Eval Order SARS-CoV-2, RNA, NAAT (NEGATIVE) Imaging Data Radiologist's Impression: CT head/brain wo con CLINICAL HISTORY: Fever, acute change in mental status. COMPARISON STUDY: 01/05/2021 TECHNIQUE: Axial CT of the brain is performed from the vertex to the skull base. IV contrast was not administered for this examination. A dose lowering technique was utilized adhering to the principles of ALARA. CT DOSE: 906.04 mGy.cm FINDINGS: There are persistent areas of vasogenic edema involving the left cerebellar hemisphere, left temporal frontal and parietal lobes, and right parietal lobe. Underlying metastatic disease is strongly suspected. There is mild mass effect with slight effacement of left hemispheric cortical sulci. There is mild effacement of the left lateral ventricle. There is 6 mm of [id number] midline shift. There is no acute hemorrhage. There is no evidence of pathologic ventricular dilatation. There is no evidence of acute sinusitis IMPRESSION: 1. Continued CT evidence of multifocal intracranial metastasis. Left hemispheric edema with 6 mm of [id number] midline shift. Persistent mass effect on the fourth ventricle. No current evidence of significant hydrocephalus. No evidence of acute hemorrhage XR chest 1V portable CLINICAL HISTORY: SEPSIS COMPARISON STUDY: January 05, 2021 FINDINGS: The heart is enlarged. There is a left-sided A-Port catheter present. There is mild vascular prominence. There is a suspected small subpulmonic right pleural effusion with associated right basilar opacities. The right-sided chest tube appears to have retracted slightly and is now positioned at the right base.[ IMPRESSION: 1. Right-sided chest tube with a basilar orientation 2. Small subpulmonic pleural effusions with associated right basilar opacities 3. Mild cardiomegaly with persistent mild vascular prominence ECG Data Attestation: I personally reviewed and interpreted this ECG as follows: Indication: + chest pain Rate (beats per minute): 80 Rhythm: + sinus with SA ECG Intervals/blocks: + Normal QT-c ECG ST segments: no ST elevation ECG Findings: no PVCs MDM Narrative This is a 65-year-old male with a fever and altered mental status presents to the ED. the patient has a CT scan as noted above of the head. This is relatively similar to one done earlier this month. It does show some brain lesions and edema. A chest x-ray did not show acute process. EKG shows a normal sinus rhythm. CBC and chemistry panel were unremarkable. Troponin was slightly elevated at 0.098. Urine did not show infection. Covid test was negative. After talking with the patient's , the patient is on hospice. She is concerned about his inability to ambulate this morning as he is normally able to ambulate. She cannot handle him at home if he cannot walk. He did have a fever of 100.4 this morning per the and she gave Tylenol. EMS reported a temperature of 100.1. No fever here today. Lactic acid was normal. Because the patient's alteration in mental status, generalized weakness and on my exam right leg focal weakness compared to the left, the patient will require inp atient evaluation and disposition. The patient was given IV cefepime here empirically for his fever. Impression & Plan Generalized muscle weakness, Altered mental status, Fever Discharge Plan Visit Data Chief Complaint: Altered Mental Status ED Provider: [place] Discharge Problem: Generalized muscle weakness, Altered mental status, Fever Patient Disposition: Being Evaluated by Hospitalist Forms Stand Alone Forms: My [facility] Prescriptions Prescriptions: No Action fentanyl [Duragesic] 25 mcg/hr patch 72 hour 1 patch transdermal Q72H RF: 0 ondansetron HCl [Zofran] 4 mg tablet 4 mg PO Q8H PRN (Reason: nausea and vomiting) Qty: 90 RF: 0 albuterol sulfate [Proventil HFA] 90 mcg/actuation HFA aerosol inhaler 2 puff INH Q6H PRN (Reason: Shortness Of Breath Or Wheezing) Qty: 18 RF: 2 vitamin B complex [Super B-50 Complex] Capsule 1 cap PO QAM RF: 0 acetaminophen [Mapap (acetaminophen)] 500 mg Capsule 1,000 mg PO DAILY PRN (Reason: Pain) RF: 0 olanzapine [Zyprexa] 5 mg tablet 5 mg PO HS RF: 0 clonazepam [Klonopin] 1 mg tablet 1 mg PO Q8 RF: 0 dexamethasone [Decadron] 4 mg tablet 4 mg PO QAM RF: 0 lorazepam 1 mg Tablet 1 mg PO DAILY PRN (Reason: Anxiety) RF: 0 oxycodone 10 mg tablet 10 mg PO Q4H PRN (Reason: Pain) RF: 0 Referrals Referrals: Abdulaziz Alexander III, MD [Primary Care Provider] -
[2021-01-25 07:45] LABS: Hematocrit (blood only) 40.7 % (42-52); Hemoglobin 13.7 g/dL (14.0-18.0); Mean Corpuscular Hgb Conc 33.7 g/dL (32-36); Mean Corpuscular Volume 92.1 fL (80-100); RDW Coefficient of Variation 15.4 % (11.5-14.5); Red Blood Count 4.42 M/uL (4.7-6.1); White Blood Count 8.57 K/uL (4.8-10.8)
[2021-01-25 07:55] LABS: Partial Thromboplastin Time 25.4 Seconds (21.0-31.0); Prothrombin Time 10.1 Seconds (9.0-12.0)
[2021-01-25 08:02] LABS: Albumin Level 3.4 gm/dl (3.4-5.0); Calcium 8.6 mg/dl (8.5-10.1); Creatinine Clr Calc Pharmacy 80.1 ml/min; Est GFR (African American) 84.7; Est GFR (Non-African American) 73.1; Magnesium 1.8 mg/dl (1.8-2.4); Potassium 3.8 mmol/L (3.5-5.1)
[2021-01-25 08:10] LABS: Albumin Globulin Ratio 1.1 (0.9-2); Globulin 3.2 gm/dl (2.5-4.0); Total Protein 6.6 gm/dl (6.4-8.2); Troponin I 0.098 ng/ml (0-0.045)
[2021-01-25 08:13] LABS: Basophils # (auto) 0.01 K/uL (0-0.2); Basophils % (auto) 0.1 %; Eosinophils # (auto) 0.04 K/uL (0-0.5); Eosinophils % (auto) 0.5 %; Immature Granulocytes # (auto) 0.07 K/uL (0.00-0.02); Immature Granulocytes % (auto) 0.8 %; Lymphocytes # (auto) 0.48 K/uL (1.2-3.4); Lymphocytes % (auto) 5.6 %; Mean Platelet Volume 7.9 fL (7.4-10.4); Monocytes # (auto) 0.77 K/uL (0.11-0.59); Platelet Count 105 K/uL (130-400)
[2021-01-25 08:28] LABS: Appearance Urine Clear (Clear); Bilirubin Urine Negative (Negative); Blood Urine Negative (Negative); Color Urine Yellow; Glucose Urine UA Negative (Negative); Ketones Urine Negative (Negative); Leukocyte Esterase Urine Negative (Negative); Nitrite Urine Negative (Negative); Protein Urine Negative (Negative); Specific Gravity Urine 1.017 (1.000-1.030); Urobilinogen Urine Negative (Negative)
--- NOTE | 2021-01-25 08:36 | CT Scan Report ---
CT head/brain wo con CLINICAL HISTORY: Fever, acute change in mental status. COMPARISON STUDY: 01/05/2021 TECHNIQUE: Axial CT of the brain is performed from the vertex to the skull base. IV contrast was not administered for this examination. A dose lowering technique was utilized adhering to the principles of ALARA. CT DOSE: 906.04 mGy.cm FINDINGS: There are persistent areas of vasogenic edema involving the left cerebellar hemisphere, left temporal frontal and parietal lobes, and right parietal lobe. Underlying metastatic disease is strongly suspe cted. There is mild mass effect with slight effacement of left hemispheric cortical sulci. There is m ild effacement of the left lateral ventricle. There is 6 mm of [id number] midline shift. There is no acute hemorrhage. There is no evidence of pathologic ventricular dilatation. There is no evidence of acute sinusitis IMPRESSION: 1. Continued CT evidence of multifocal intracranial metastasis. Left hemispheric edema with 6 mm of l [id number] midline shift. Persistent mass effect on the fourth ventricle. No current evidence of si gnificant hydrocephalus. No evidence of acute hemorrhage ACT 112: Negative or not required by law. Electronically signed by: Jim Baxter M.D. 01/25/2021 8:34 AM
--- NOTE | 2021-01-25 08:53 | XRay Report ---
XR chest 1V portable CLINICAL HISTORY: SEPSIS COMPARISON STUDY: January 05, 2021 FINDINGS: The heart is enlarged. There is a left-sided A-Port catheter present. There is mild vascula r prominence. There is a suspected small subpulmonic right pleural effusion with associated right bas ilar opacities. The right-sided chest tube appears to have retracted slightly and is now positioned a t the right base.[ IMPRESSION: 1. Right-sided chest tube with a basilar orientation 2. Small subpulmonic pleural effusions with associated right basilar opacities 3. Mild cardiomegaly with persistent mild vascular prominence ACT 112: Negative or not required by law. Electronically signed by: Jim Baxter M.D. 01/25/2021 8:52 AM
--- NOTE | 2021-01-25 10:39 | Electrocardiogram Report ---
Test Reason : Blood Pressure : / mmHG Vent. Rate : 081 BPM Atrial Rate : 081 BPM P-R Int : 180 ms QRS Dur : 150 ms QT Int : 396 ms P-R-T Axes : 070 -41 099 degrees QTc Int : 460 ms Normal sinus rhythm with sinus arrhythmia Left atrial enlargement Left axis deviation Right bundle branch block Anteroseptal infarct (cited on or before 17-MAR-2020) Abnormal ECG When compared with ECG of 05-JAN-2021 07:58, No significant change was found Confirmed by Flo Cadet ([id number]) on 01/25/2021 10:39:43 AM Referred By: REFERRED SELF Confirmed By:Flo Cadet
--- NOTE | 2021-01-25 11:02 | History & Physical Report ---
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 Fever could be explained tumor. Procal is negative. will hold off PT/OT evals as patient will likely be returning to home hospice. consult palliative care to discuss goals of care wants patient to return on home hospice, DNR Given how agitated patient is: will continue morphine and sublingual ativan. currently he is being treated with Xgeva as maintenance but was put on hold due to jaw pain he does not have pain, does not have dyspnea, eating well prior to this admission -Confusion: due to brain mets on Decadron -Brain metastases: diagnosed in previous admission no plans for radiation therapy, no need for MRI brain -Brain edema: Decadron -Pleural effusion on right: managed with PleurX, will ask RN to drain on Tuesday as it is typical time for him to drain at home normally gets about 300mL out each week -CKD (chronic kidney disease) stage 3, GFR 30-59 ml/min: Cr is stable -COPD (chronic obstructive pulmonary disease): stable on room air. (2) Brain metastases: (3) Altered mental status: (4) Pleural effusion on right: History of Present Illness Chief Complaint: Worsening of weakness Primary Care Provider: Abdulaziz Alexander MD 65 yo male with recent history of small cell lung cancer, stage IV with liver and bone metastases, recently hospitalized earlier this month with worsening condfusion and found to have brain mets was discharged on 01/07 on home hospice. Patient returns to the hospital due to worsening of his confusion and more weakness which abruptly became worse. Family was concerned about his sudden decrease in activity and was sent to the ER. Patient is tired and confused and unable to provide a history. Patient had a 101 temperature by EMS. Allergies Allergy/AdvReac Type Severity Reaction Status Date / Time guaifenesin Allergy Unknown SNEEZING Verified 01/25/21 07:50 Home Medications Medication Instructions Recorded Confirmed Type fentanyl 25 mcg/hr transdermal 1 patch TRANSDERMAL Q72H 08/07/20 01/25/21 History patch ondansetron HCl 4 mg tablet 4 mg PO Q8H PRN #90 tab 10/09/20 01/25/21 Rx albuterol sulfate 90 mcg/actuation 2 puff INH Q6H PRN #18 g 10/21/20 01/25/21 Rx aerosol inhaler acetaminophen [Mapap 1,000 mg PO DAILY PRN 01/05/21 01/25/21 History (acetaminophen)] vitamin B complex [Super B-50 1 cap PO QAM 01/05/21 01/25/21 History Complex] clonazepam [Klonopin] 1 mg PO Q8 01/25/21 01/25/21 History dexamethasone [Decadron] 4 mg PO QAM 01/25/21 01/25/21 History lorazepam 1 mg PO DAILY PRN 01/25/21 01/25/21 History olanzapine [Zyprexa] 5 mg PO HS 01/25/21 01/25/21 History oxycodone 10 mg PO Q4H PRN 01/25/21 01/25/21 History Past Med/Surg History Medical History Altered mental status Back pain Colon polyps Confusion COPD (chronic obstructive pulmonary disease) Depression with anxiety Diverticulosis Dyslipidemia GERD (gastroesophageal reflux disease) Gout Hypertension Inhibited sexual excitement Leukocytosis Lump of skin Lung cancer (03/2020) small cell lung CA, right sided mass, dx 03/2020 - stage IV w/ mets to liver, bone, nodes On home O2 2 LPM QHS; DAILY PRN Osteoarthritis Pleural effusion on right Chronic. PleurX catheter since 11/01/20 Pneumonia hospitalized 03/17/2020 [facility] Restrictive lung disease Tobacco use disorder Stopped 03/2020 Vertigo x 1 episode Surgical History History of cataract surgery (~2017) History of colonoscopy (~2014) History of knee surgery RT X 2, LT X 2 History of shoulder surgery (~2001) LEFT X 2 History of thoracentesis (03/20/20) tapped 03/20/2020 - rt pleural effusion Port-A-Cath in place (04/22/20) Insertion of Mediport Left Cephalic Vein Dr. Toro 04/22/20 Status post bronchoscopy with biopsy (03/19/20) Family History Mother , Passed age 84 of CHF Diabetes Heart disease Breast cancer, Onset Age: 78 Sister , Passed in early 40's of breast cancer No problems noted. Father , Passed age 53 of [place] Heart disease Myocardial infarction Hypertension Sister Breast cancer Sister Breast cancer Brother , Passed age 30 of MVA No problems noted. Brother , Passed age 56 of [place] No problems noted. Brother , Passed age 78 of "heart" Prostate cancer Daughter No problems noted. Son No problems noted. Son No problems noted. Other No family history of adverse response to anesthesia Denies family history of Ovarian cancer Colorectal cancer Social History Smoking Status: Unknown if ever smoked Age Started Using Tobacco: 17; Age Quit Using Tobacco: 65; packs per day: 1; Cigarettes Per Day: 6; Second Hand Exposure: No; Hx Alcohol Use: No Hx Substance Use: No Preferred Language: Bengali Communication Ability: Unable Visual Impairment: No Limitations Hearing Ability: Normal Manager Food Safety Required: No Beliefs That Will Affect Care: None marital status: Current Living Situation: Spouse Current Living Situation Comment: From home with and hospice per ED RN, Unable to obtain accurate hx current occupational status: retired 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 Safe at Home: Yes Childhood Exposure to Second-Hand Smoke: Yes caffeine: No Dental Care, Regularly: No Assistive Devices: Denture - Upper and Denture - Lower Review of Systems Review of Systems: Unobtainable due to cognitive status Physical Exam Constitutional: WD/WN, vitals as above Eyes: PERRL, conjunctivae normal, anicteric sclerae ENMT: external ear and nose normal, oropharynx normal Neck: trachea midline, no thyromegaly Respiratory: normal respiratory effort; does not use accessory muscles Auscultation: lungs clear to auscultation bilaterally (except for bibasilar rales.) Cardiovascular: RRR, no murmur, no edema Gastrointestinal (Abdomen): normal bowel sounds, soft, nontender, no hepatosplenomegaly Musculoskeletal: no cyanosis or clubbing, extremities motor strength 5/5 Neurologic: PERRL, EOMI, accommodation nl, no face palsy, no dysarthria Lymphatic: no cervical or axillary lymphadenopathy Results & Data Results & Data ([facility]) Vital Signs (Past 12 Hours) Vital Signs Temp Pulse Resp BP Pulse Ox 01/25/21 10:00 75 20 141/91 H 01/25/21 09:31 24 173/76 H 01/25/21 09:30 23 01/25/21 09:00 67 23 162/82 H 01/25/21 08:32 76 12 184/74 H 01/25/21 08:00 83 22 178/85 H 94 01/25/21 07:36 91 H 21 166/83 H 96 01/25/21 07:30 68 23 96 01/25/21 07:18 83 188/89 H 97 01/25/21 07:14 80 01/25/21 07:13 37 C 75 18 188/89 H 95 PG Care Time/CCT Total # of Minutes Spent Total Time Spent with Patient: Total time spent is greater than 50% in coordination of care (as documented) at patient's floor/unit and/or counseling patient: Coding Level of Care Code 27662 Initial Inpt Care Lvl 3 Diagnoses Confusion R41.0 Brain metastases C79.31 Altered mental status R41.82 Pleural effusion on right J90 Time Spent (min) 55
[2021-01-25] MEDS ORDERED: ONDANSETRON INJ 2 MG/ML 2 ML VIAL IV PRN (13:54)
[2021-01-25] MEDS ORDERED: ALBUTEROL HFA 8 GM INHALER INH PRN (13:54)
[2021-01-25] MEDS ORDERED: LORazepam 1 MG TAB PO PRN (13:54)
[2021-01-25] MEDS ORDERED: ACETAMINOPHEN 325 MG TAB PO PRN (13:54)
[2021-01-25] MEDS ORDERED: MAGNESIUM HYDROXIDE SUSP 30 ML UDC PO PRN (13:54)
[2021-01-25] MEDS ORDERED: fentaNYL 25 MCG/HR TDSY TD SCH (14:30)
[2021-01-25] MEDS: dexAMETHasone 4 MG TAB PO SCH (15:48)
[2021-01-25] MEDS: CHECK fentaNYL PATCH PLACEMENT SCH ×2 (15:55→23:18)
[2021-01-25] MEDS ORDERED: LORazepam 1 MG TAB SL PRN (18:30)
[2021-01-25] MEDS ORDERED: MoRPHine SULFATE 5 MG/0.25 ML UDP PO PRN (20:00)
[2021-01-25] MEDS ORDERED: OLANZapine 5 MG TABLET PO SCH (21:00)
[2021-01-26 00:03] VITALS: TEMP 98.6
[2021-01-26] MEDS ORDERED: HEPARIN 100 UNIT/ML 5ML FLUSH FLUSH PRN (00:28)
[2021-01-26 08:02] VITALS: PULSE 89
[2021-01-26] MEDS ORDERED: fentaNYL 25 MCG/HR TDSY TD SCH (09:00)
[2021-01-26] MEDS ORDERED: VITAMIN B COMPLEX TAB PO SCH (09:00)
[2021-01-26] MEDS: CHECK fentaNYL PATCH PLACEMENT SCH (09:11)
[2021-01-26] MEDS: dexAMETHasone 4 MG TAB PO SCH (09:12)
--- NOTE | 2021-01-26 09:14 | Palliative Care Consultation ---
Date of Consultation January 26, 2021 Assessment & Plan (1) Palliative care encounter: Dyllan is an unfortunate 65 male who has extensive small cell lung cancer with metastasis to his live and bone who is known to the palliative care service and was discharged on 01/07/21 with [facility] Hospice services. Last admission, he had been experiencing worsening confusion and weakness and he was found to have brain metastasis. Per Chely, his , she felt that he was becoming progressively weaker and she called Hospice, but decided to proceed with bringing him into the ED. Palliative care was reconsulted to discuss goals of care and collaborate with Hospice. I met with Dyllan and his , Chely in room 253. Chely was on the phone with the hospice nurse, Fanta, whom I spoke with privately from the nursing station. Dyllan has been doing well at home, with some intermittent aggressive behaviors at home, but when I asked Chely if he had been aggressive towards her, she said 'no', just yelling. She indicated she did not feel scared of him at home. She said he sometimes does get up in the middle of the night and wander around, but doesn't leave his bedroom. I did adress her concerns regarding his weakness and set the expectation that his mental status fluctuation is expected and weakness is expected to continue as his disease progresses. Per discussion with Fanta, a ESTIMATOR LUMBER and RN had been going 2 x per week, but Chely had been declining the ESTIMATOR LUMBER because he has already received his shower when they arrived. I talked about utilizing their care time for other areas within his care, too. Chely was receptive to this. I did readdress that I had concerns about his behaviors, especially related to PTSD behaviors surfacing towards end of life. Should he return home and behaviors or aggressive behavior exacerbate, certainly respite care either inpatient at the hospital, or at a SNF could be arranged. This was discussed during his previous admission as well. I did reeducate on Respite care also. She declined any discussion regarding him being transitioned to a SNF environment. I spoke with Fanta RN from [facility] Hospice on the phone and suggested that the Zyprexa be scheduled with 7.5 at HS and 5 mg Q AM. Additionally, she was administering Ativan at bedtime. I also talked about SNF placement and respite care, and in addition GIP appropriateness. I talked with the hospitalist and also hospice regarding his behaviors and that Decadron could be contributing to some of these behaviors and could consider decreasing and stopping the Decadron. In discussion with Chely, their son will be arriving for the week from [place] to assist. We also discussed private caregivers being supplemented at home too. Plan is for him to return home with hospice services this afternoon. (2) Brain metastases: (3) Altered mental status: (4) Fever: History of Present Illness Reason for Consultation: Goals of care Requesting Physician: Dr. Skelton Attending Physician: Ric Skelton History of Present Illness Dyllan is an unfortunate 65 male who has extensive small cell lung cancer with metastasis to his live and bone who is known to the palliative care service and was discharged on 01/07/21 with [facility] Hospice services. Last admission, he had been experiencing worsening confusion and weakness and he was found to have brain metastasis. Per Chely, his , she felt that he was becoming progressively weaker and she called Hospice, but decided to proceed with bringing him into the ED. Palliative care was reconsulted to discuss goals of care and collaborate with Hospice. Please see A/P for further information. Thank you kindly for re-involving palliative care with this individual. Allergies Allergy/AdvReac Type Severity Reaction Status Date / Time guaifenesin Allergy Unknown SNEEZING Verified 01/25/21 07:50 Home Medications Medication Instructions Recorded Confirmed Type fentanyl 25 mcg/hr transdermal 1 patch TRANSDERMAL Q72H 08/07/20 01/25/21 History patch ondansetron HCl 4 mg tablet 4 mg PO Q8H PRN #90 tab 10/09/20 01/25/21 Rx albuterol sulfate 90 mcg/actuation 2 puff INH Q6H PRN #18 g 10/21/20 01/25/21 Rx aerosol inhaler acetaminophen [Mapap 1,000 mg PO DAILY PRN 01/05/21 01/25/21 History (acetaminophen)] vitamin B complex [Super B-50 1 cap PO QAM 01/05/21 01/25/21 History Complex] clonazepam [Klonopin] 1 mg PO Q8 01/25/21 01/25/21 History dexamethasone [Decadron] 4 mg PO QAM 01/25/21 01/25/21 History lorazepam 1 mg PO DAILY PRN 01/25/21 01/25/21 History olanzapine [Zyprexa] 5 mg PO HS 01/25/21 01/25/21 History oxycodone 10 mg PO Q4H PRN 01/25/21 01/25/21 History lorazepam 1 mg SUBLINGUAL HS #30 tab 01/26/21 Rx olanzapine [Zyprexa] 7.5 mg PO HS #30 tab 01/26/21 Rx Patient History Medical History Altered mental status Back pain Colon polyps Confusion COPD (chronic obstructive pulmonary disease) Depression with anxiety Diverticulosis Dyslipidemia GERD (gastroesophageal reflux disease) Gout Hypertension Inhibited sexual excitement Leukocytosis Lump of skin Lung cancer (03/2020) small cell lung CA, right sided mass, dx 03/2020 - stage IV w/ mets to liver, bone, nodes On home O2 2 LPM QHS; DAILY PRN Osteoarthritis Palliative care encounter Pleural effusion on right Chronic. PleurX catheter since 11/01/20 Pneumonia hospitalized 03/17/2020 [facility] Restrictive lung disease Tobacco use disorder Stopped 03/2020 Vertigo x 1 episode Surgical History History of cataract surgery (~2017) History of colonoscopy (~2014) History of knee surgery RT X 2, LT X 2 History of shoulder surgery (~2001) LEFT X 2 History of thoracentesis (03/20/20) tapped 03/20/2020 - rt pleural effusion Port-A-Cath in place (04/22/20) Insertion of Mediport Left Cephalic Vein Dr. Toro 04/22/20 Status post bronchoscopy with biopsy (03/19/20) Family History Mother , Passed age 84 of CHF Diabetes Heart disease Breast cancer, Onset Age: 78 Sister , Passed in early 40's of breast cancer No problems noted. Father , Passed age 53 of [place] Heart disease Myocardial infarction Hypertension Sister Breast cancer Sister Breast cancer Brother , Passed age 30 of MVA No problems noted. Brother , Passed age 56 of [place] No problems noted. Brother , Passed age 78 of "heart" Prostate cancer Daughter No problems noted. Son No problems noted. Son No problems noted. Other No family history of adverse response to anesthesia Denies family history of Ovarian cancer Colorectal cancer Social History Smoking Status: Unknown if ever smoked Age Started Using Tobacco: 17; Age Quit Using Tobacco: 65; packs per day: 1; Cigarettes Per Day: 6; Second Hand Exposure: No; Hx Alcohol Use: No Hx Substance Use: No Preferred Language: Japanese Communication Ability: Unable Visual Impairment: No Limitations Hearing Ability: Normal Security Test Engineer Required: No Beliefs That Will Affect Care: None marital status: Current Living Situation: Spouse Current Living Situation Comment: From home with and hospice per ED RN, Unable to obtain accurate hx current occupational status: retired 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 Safe at Home: Yes Childhood Exposure to Second-Hand Smoke: Yes caffeine: No Dental Care, Regularly: No Assistive Devices: Denture - Upper, Denture - Lower and Glasses Review of Systems Review of Systems: [place] Symptom Assessment Scale: Tiredness: 0/3 Nausea: 0/3 Shortness of Breath: 0/3 Depression: 0/3 Pain: 1/3 Anxiety: 2/3 Palliative Performance Scale: 30% Physical Exam Constitutional: cooperative and + combative (intermittently); no acute distress Neck: trachea midline, no thyromegaly Respiratory: normal respiratory effort Auscultation: + diminished lung sounds Cardiovascular: Heart Sounds: normal S1 and normal S2 Extremities: normal capillary refill; no edema Gastrointestinal (Abdomen): normal bowel sounds, soft, nontender, no hepatosplenomegaly Skin: no rashes, warm and dry Psychiatric: Orientation: alert, oriented to person and cooperative Insight: + impaired insight Judgement: + impaired judgement Results & Data ([facility]) Vital Signs (Past 12 Hours) Vital Signs Temp Pulse Resp BP BP Pulse Ox 01/26/21 08:01 37.0 C 89 20 146/87 H 96 01/26/21 00:03 37.0 C 53 L 22 144/66 H 94 PG Care Time/CCT Total # of Minutes Spent Total Time Spent with Patient: Total time spent is greater than 50% in coordination of care (as documented) at patient's floor/unit and/or counseling patient: Total time spent 100 minutes with > 50% of that time spent assessing the patient, discussing goals of care with the patients and hospice, along with collaborating with IDT Coding Level of Care Code 62367 Inpt Consult Level 4 Diagnoses Palliative care encounter Z51.5 Brain metastases C79.31 Altered mental status R41.82 Fever R50.9 Time Spent (min) 100
[2021-01-26 14:20] VITALS: BP 144/66; O2SAT 96
--- NOTE | 2021-02-01 21:14 | Discharge Summary ---
Date of Service January 26, 2021 Admission HPI Per Admitting Provider 65 yo male with recent history of small cell lung cancer, stage IV with liver and bone metastases, recently hospitalized earlier this month with worsening condfusion and found to have brain mets was discharged on 01/07 on home hospice. Patient returns to the hospital due to worsening of his confusion and more weakness which abruptly became worse. Family was concerned about his sudden decrease in activity and was sent to the ER. Patient is tired and confused and unable to provide a history. Patient had a 101 temperature by EMS. Principal Diagnosis confusion from brain mets Discharge Exam Constitutional: WD/WN, vitals as above Eyes: PERRL, conjunctivae normal, anicteric sclerae ENMT: external ear and nose normal, oropharynx normal Neck: trachea midline, no thyromegaly Respiratory: normal respiratory effort; does not use accessory muscles Auscultation: lungs clear to auscultation bilaterally (except for bibasilar rales.) Cardiovascular: RRR, no murmur, no edema Gastrointestinal (Abdomen): normal bowel sounds, soft, nontender, no hepatosplenomegaly Musculoskeletal: no cyanosis or clubbing, extremities motor strength 5/5 Neurologic: PERRL, EOMI, accommodation nl, no face palsy, no dysarthria Lymphatic: no cervical or axillary lymphadenopathy Discharge Data Allergies Allergy/AdvReac Type Severity Reaction Status Date / Time guaifenesin Allergy Unknown SNEEZING Verified 01/25/21 07:50 Consultations 01/25/21 09:41 ED Decision to Admit Stat 01/25/21 22:35 Consult Palliative Care Routine Ordered Studies 01/25/21 07:21 CT head/brain wo con Stat Hospital Course (1) Confusion: -Lung cancer: 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 Fever could be explained tumor. Procal is negative. will hold off PT/OT evals as patient will be returning to home hospice. consult palliative care to discuss goals of care wants patient to return on home hospice, DNR Given how agitated patient is: will continue morphine and sublingual ativan. he does not have pain, does not have dyspnea, eating well prior to this admission -Confusion: due to brain mets on Decadron -Brain metastases: diagnosed in previous admission no plans for radiation therapy, no need for MRI brain -Brain edema: Decadron -Pleural effusion on right: managed with PleurX, will ask RN to drain on Tuesday as it is typical time for him to drain at home normally gets about 300mL out each week -CKD (chronic kidney disease) stage 3, GFR 30-59 ml/min: Cr is stable -COPD (chronic obstructive pulmonary disease): stable on room air. (2) Brain metastases: (3) Altered mental status: (4) Pleural effusion on right: Total Time Total Time Spent Total Time Spent (In Minutes): 32 Total Time Includes: Examination of the Patient, Discharge Planning and Medication Reconciliation Discharge Plan Discharge Items Patient Disposition: Hospice - Home Reason For Visit: WEAKNESS, BRAIN CANCER METS Discharge Diagnosis: weakness, brain cancer Activity: Resume your previous activity Non-emergency contact: Primary Care Provider Call non-emergency contact if: you have any medication questions Follow-up/Referrals: Abdulaziz Alexander III, MD [Primary Care Provider] - Diet: Regular Addtl Attending Provider Instructions: going back to home hospice. At home, if his behaviors or aggressive behavior exacerbate, certainly respite care either inpatient at the hospital, or at a SNF could be arranged Pending Studies at Discharge: No Stand-Alone [facility] Medications and DC Order Prescriptions: New olanzapine [Zyprexa] 7.5 mg tablet 7.5 mg PO HS Qty: 30 RF: 0 lorazepam 1 mg Tablet 1 mg sublingual HS Qty: 30 RF: 0 Continued fentanyl [Duragesic] 25 mcg/hr patch 72 hour 1 patch transdermal Q72H RF: 0 ondansetron HCl [Zofran] 4 mg tablet 4 mg PO Q8H PRN (Reason: nausea and vomiting) Qty: 90 RF: 0 albuterol sulfate [Proventil HFA] 90 mcg/actuation HFA aerosol inhaler 2 puff INH Q6H PRN (Reason: Shortness Of Breath Or Wheezing) Qty: 18 RF: 2 vitamin B complex [Super B-50 Complex] Capsule 1 cap PO QAM RF: 0 acetaminophen [Mapap (acetaminophen)] 500 mg Capsule 1,000 mg PO DAILY PRN (Reason: Pain) RF: 0 dexamethasone [Decadron] 4 mg tablet 4 mg PO QAM RF: 0 oxycodone 10 mg tablet 10 mg PO Q4H PRN (Reason: Pain) RF: 0 Changed olanzapine [Zyprexa] 5 mg tablet 5 mg PO DAILY Qty: 0 RF: 0 Discontinued clonazepam [Klonopin] 1 mg tablet 1 mg PO Q8 RF: 0 lorazepam 1 mg Tablet 1 mg PO DAILY PRN (Reason: Anxiety) RF: 0 Discharge Orders: Discharge Order (Routine); Ordered 01/26/21 Ordered By: Ric Skelton Admission Data Admit Date/Time: 01/25/21 11:41 Attending Provider: Ric Skelton Admit Provider: Ric Skelton Primary Care Provider: Abdulaziz Alexander III Other Providers: Ayaka Schroeder Other Interventions: Discharge Summary Assessment (RN) Last Done: 01/26/21 14:18 Coding Level of Care Code D/C Day Management >30 mins Diagnoses Confusion R41.0 Brain metastases C79.31 Altered mental status R41.82 Pleural effusion on right J90
== END 2021-01-26 15:00 | disposition hospice, home (50) | DRG 180 ==
LOC: ED 07:08 → INTOOBSV 11:41 → 2W 11:41